=== PATIENT | male | born 1950 | race Caucasian/White ===

== ENCOUNTER 2022-04-04 16:21 | Emergency (ER) | payer MEDICARE, MEDICAID, SELFPAY ==
[2022-04-04 16:34] VITALS: BP 134/76; BP 135/67; PULSE 70; PULSE 74; RESP 14; TEMP 36.6; O2SAT 100; O2SAT 98; BMI 23.8
--- NOTE | 2022-04-04 16:39 | ED.GIBLEED ---
HPI - GI Bleed General Chief complaint: GI Bleed Stated complaint: RECTAL BLEED D/T HEMORRHOID FROM SNF PER EMS Time Seen by Provider: 04/04/22 16:31 Source: patient, EMS and RN notes reviewed Mode of arrival: EMS Limitations: physical limitation History of Present Illness HPI Narrative: 72-year-old male a resident at [facility] came in for evaluation of rectal bleeding. 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 Patient currently declines CP, SOB, ABD pain, nausea, vomiting, diarrhea. Reviewing patient records from the correction not taking blood thinner. Related Data Allergies Allergy/AdvReac Type Severity Reaction Status Date / Time No Known Allergies Allergy Verified 04/04/22 16:32 Review of Systems Review of Systems: All other systems are reviewed and are negative Constitutional: Reports as per HPI and Reports no additional constitutional complaints Eyes: Reports as per HPI and Reports no additional eye complaints Reports system reviewed and no additional complaints, except as documented Cardiovascular: Reports as per HPI and Reports no additional cardiovascular complaints Respiratory: Reports as per HPI and Reports no additional respiratory complaints Gastrointestinal: Reports as per HPI and Reports no additional gastrointestinal complaints Genitourinary: Reports no additional female genitourinary complaints Musculoskeletal: Reports no additional musculoskeletal complaints Skin/Breast: Reports system reviewed and no additional complaints, except as docu Psychiatric: Reports no additional psychiatric complaints Endocrine: Reports no additional endocrine complaints Hematologic/Lymphatic: Reports no additional hematologic/lymphatic complaints Allergic/Immunologic: Reports no additional allergic/immunologic complaints Reports system reviewed and no additional complaints, except as documented and Reports Abnormal speech present [facility] Past Medical History Medical History (Updated 04/04/22 @ 18:51 by Chilo Pringle MD) BPH (benign prostatic hyperplasia) Hypertension Hypokalemia Mood disorder Vascular dementia Social History Social History Advance Directives: Yes Advance Directives Information Provided: No Advance Directives on File: No Physical Exam Vital Signs: Vital Signs: Last Vital Signs Temp 98 F 04/04/22 16:34 Pulse 70 04/04/22 16:34 Resp 14 04/04/22 16:34 BP 135/67 04/04/22 16:34 Pulse Ox 100 04/04/22 16:34 O2 Del Method 04/04/22 16:34 BMI result Body Mass Index 23.8 Vital signs have been reviewed as appeared to be correct. Blood pressure normal. Heart rate normal. Respiration rate normal. Temperature normal. Oxygen saturation normal. Appearance: Alert. Oriented X1 to place. No acute distress. Head: Normal external exam. Normocephalic. Atraumatic. No [place] signs noted. No raccoon eyes noted Eyes: PERRLA. EOMI. Conjunctiva and sclera normal. Eyelids normal. ENT: TM's Normal. Pharynx normal. Uvula midline. Moist mucous membranes. No trismus noted. No drooling noted. No muffled voice noted. Neck: Normal inspection. Neck supple. FROM. No adenopathy. Thyroid Normal. No meningeal signs. No neck mass noted. CVS: Normal heart rate and rhythm. Heart sound normal. No murmurs noted. Pulses normal throughout. Respiratory: No respiratory distress. Painless inspiration. Breath sounds normal. No wheezes/rales/rhonchi noted. Chest nontender. No accessory muscle usage noted or decreased air movement noted. Abdomen: Soft and nontender. Bowel sounds normal in all 4 quadrants. No distention noted. No organomegaly noted. No visible injury noted. Rectal exam: Small external hemorrhoid nontender at 3 and 09:00 o'clock, stool is brown with no active bleeding. Back: No CVA tenderness. Full range of motion noted. Skin: Skin warm and dry. Normal skin color. Normal skin turgor. No rashes/lesions/lacerations noted. Extremities: No lower extremity edema. Extremities exhibit normal range of motion. Extremities nontender. Neuro: Oriented [address] Course Course Narrative: 72-year-old male came in from [facility] for concern of hemorrhoid bleeding. Patient has small external hemorrhoid with no active bleeding or thrombosis no indication for emergency hemorrhoidectomy, the case discussed with Dr. Marinelli who examined the patient at the bedside thought there is no urgent surgical intervention is needed at this point patient can go back to the correction and follow-up with his office as an outpatient. Patient hemodynamically stable with anemia appears to be chronic no old records to compare, patient is asymptomatic, stool shows no blood. [facility] - GI Bleed Lab Data Attestation: I reviewed the patient's lab results. Result diagrams: 04/04/22 16:46 04/04/22 16:46 Labs: Lab Results 04/04/22 04/04/22 04/04/22 Range/Units 16:46 16:46 16:46 WBC 5.4 (4.8-10.8) X10*3/uL RBC 4.10 L (4.60-5.80) X10*6/uL Hgb 10.6 L (14.0-18.0) g/dl Hct 34.9 L (42.0-52.0) % MCV 85.1 (80.0-98.0) fL MCH 25.9 L (27.0-33.0) pg MCHC 30.4 L (31.0-36.0) g/dl RDW 15.9 (11.0-16.0) % Plt Count 241 (160-400) X10*3/uL MPV 9.2 L (9.4-12.4) fL Immature Gran % (Auto) 0.4 (0.0-0.4) % Neut % (Auto) 59.1 (45-73) % Lymph % (Auto) 27.6 (20-40) % Page % (Auto) 10.7 (2-11) % Eos % (Auto) 1.8 (0-4) % Baso % (Auto) 0.4 (0-2) % Lymph # (Auto) 1.5 (1.2-4.9) X10*3/uL [place] # (Auto) 0.6 (0.1-1.2) X10*3/uL Eos # (Auto) 0.1 (0.0-0.4) X10*3/uL Baso # (Auto) 0.0 (0.0-0.2) X10*3/uL Abs Immat Gran (auto) 0.02 (0.00-0.03) X10*3/uL Absolute Neuts (auto) 3.2 (2.0-8.3) x10*3/uL Absolute Nucleated RBC 0.000 (0.0-0.012) X10*3/uL Nucleated RBC % (auto) 0.0 (0.0-0.2) /100WBC PT 16.5 H (10.0-13.1) SEC INR 1.4 H (0.9-1.1) APTT 43.2 H (24.1-38.0) SEC Sodium 137 (135-145) mmol/L Potassium 3.6 (3.3-5.1) mmol/L Chloride 100 (96-108) mmol/L Carbon Dioxide 32 H (22-29) mmol/L Anion Gap 9 L (12-20) BUN 20 H (9-16) mg/dL Creatinine 0.73 (0.5-1.4) mg/dL Estim Creat Clear Calc 86.7 Estimated GFR > 60 Random Glucose 93 (60-115) mg/dL Calcium 8.8 (8.4-10.2) mg/dL Total Bilirubin 0.3 (0.0-1.0) mg/dL Direct Bilirubin < 0.2 (0.0-0.5) mg/dL AST 9 (5-37) U/L ALT < 6 (0-40) U/L Alkaline Phosphatase 81 (39-117) U/L Total Protein 6.3 L (6.5-8.0) g/dL Albumin 3.8 (3.5-5.0) g/dL Lipase 22 (8-78) U/L Stool Occult Blood (NEGATIVE) 04/04/22 Range/Units 16:46 WBC (4.8-10.8) X10*3/uL RBC (4.60-5.80) X10*6/uL Hgb (14.0-18.0) g/dl Hct (42.0-52.0) % MCV (80.0-98.0) fL MCH (27.0-33.0) pg MCHC (31.0-36.0) g/dl RDW (11.0-16.0) % Plt Count (160-400) X10*3/uL MPV (9.4-12.4) fL Immature Gran % (Auto) (0.0-0.4) % Neut % (Auto) (45-73) % Lymph % (Auto) (20-40) % Page % (Auto) (2-11) % Eos % (Auto) (0-4) % Baso % (Auto) (0-2) % Lymph # (Auto) (1.2-4.9) X10*3/uL [place] # (Auto) (0.1-1.2) X10*3/uL Eos # (Auto) (0.0-0.4) X10*3/uL Baso # (Auto) (0.0-0.2) X10*3/uL Abs Immat Gran (auto) (0.00-0.03) X10*3/uL Absolute Neuts (auto) (2.0-8.3) x10*3/uL Absolute Nucleated RBC (0.0-0.012) X10*3/uL Nucleated RBC % (auto) (0.0-0.2) /100WBC PT (10.0-13.1) SEC INR (0.9-1.1) APTT (24.1-38.0) SEC Sodium (135-145) mmol/L Potassium (3.3-5.1) mmol/L Chloride (96-108) mmol/L Carbon Dioxide (22-29) mmol/L Anion Gap (12-20) BUN (9-16) mg/dL Creatinine (0.5-1.4) mg/dL Estim Creat Clear Calc Estimated GFR Random Glucose (60-115) mg/dL Calcium (8.4-10.2) mg/dL Total Bilirubin (0.0-1.0) mg/dL Direct Bilirubin (0.0-0.5) mg/dL AST (5-37) U/L ALT (0-40) U/L Alkaline Phosphatase (39-117) U/L Total Protein (6.5-8.0) g/dL Albumin (3.5-5.0) g/dL Lipase (8-78) U/L Stool Occult Blood NEGATIVE (NEGATIVE) Discharge Plan Discharge Clinical Impression: Hemorrhoids Patient Disposition: Xfer [facility] Instructions: Hemorrhoids (ED) Additional Instructions: Call Dr. Marinelli office and make an outpatient appointment. Referrals: Martin Telles DO [Primary Care Provider] - Raji Marinelli MD [Physician] -
[2022-04-04 16:54] LABS: MANUAL DIFF FLAG NO
[2022-04-04 16:55] LABS: Basophils Percent Auto 0.4 % (0-2); Eosinophils Absolute Auto 0.1 X10*3/uL (0.0-0.4); Eosinophils Percent Auto 1.8 % (0-4); Hematocrit 34.9 % (42.0-52.0); Hemoglobin 10.6 g/dl (14.0-18.0); Imm Gran Abs Auto 0.02 X10*3/uL (0.00-0.03); Imm Gran Pct Auto 0.4 % (0.0-0.4); Lymphocytes Absolute Auto 1.5 X10*3/uL (1.2-4.9); Lymphocytes Percent Auto 27.6 % (20-40); Mean Corpuscular HGB Conc 30.4 g/dl (31.0-36.0); Mean Corpuscular Hemoglobin 25.9 pg (27.0-33.0); Mean Corpuscular Volume 85.1 fL (80.0-98.0); Mean Platelet Volume 9.2 fL (9.4-12.4); Monocytes Absolute Auto 0.6 X10*3/uL (0.1-1.2); Monocytes Percent Auto 10.7 % (2-11); Neutrophils Absolute Auto 3.2 x10*3/uL (2.0-8.3); Neutrophils Percent Auto 59.1 % (45-73); OBS Int Ctl Valid YES; OBS1 NEGATIVE (NEGATIVE); Platelet Count 241 X10*3/uL (160-400); Red Cell Distribution Width 15.9 % (11.0-16.0); White Blood Count 5.4 X10*3/uL (4.8-10.8)
[2022-04-04 17:02] LABS: INTERNATIONAL NORM RATIO 1.4 (0.9-1.1); Prothrombin Time 16.5 SEC (10.0-13.1)
[2022-04-04 17:04] LABS: Partial Thromboplastin Time 43.2 SEC (24.1-38.0)
[2022-04-04 17:17] LABS: Alanine Aminotransferase < 6 U/L (0-40); Albumin Level 3.8 g/dL (3.5-5.0); Alkaline Phosphatase 81 U/L (39-117); Anion Gap 9 (12-20); Aspartate Amino Transferase 9 U/L (5-37); Bilirubin Direct < 0.2 mg/dL (0.0-0.5); Bilirubin Total 0.3 mg/dL (0.0-1.0); Blood Urea Nitrogen 20 mg/dL (9-16); Calcium 8.8 mg/dL (8.4-10.2); Carbon Dioxide 32 mmol/L (22-29); Chloride 100 mmol/L (96-108); Creatinine Clr Calc Pharmacy 86.7; Estimated Glomerular Filt Rate > 60; Glucose Random 93 mg/dL (60-115); Lipase 22 U/L (8-78); Potassium 3.6 mmol/L (3.3-5.1); Sodium 137 mmol/L (135-145); Total Protein 6.3 g/dL (6.5-8.0)
--- NOTE | 2022-04-04 19:40 | PC.NURSE ---
This US called action for BLS transport to [facility] @19:38. Action gave an eta of 1 hr
[2022-04-04 20:50] VITALS: PULSE 82; RESP 15; O2SAT 95
--- NOTE | 2022-04-04 21:35 | PC.NURSE ---
This US called action looking for update on the transport eta @21:10 and action gave eta of 10-15
--- NOTE | 2022-04-04 21:51 | PC.NURSE ---
This US called action @21:51 about the bls unit and action stated less than 5 min
--- NOTE | 2022-04-04 22:20 | PC.NURSE ---
[facility] notified pt will be returning home
== END 2022-04-04 22:20 | disposition skilled nursing facility (03) ==
PROVIDERS: Emergency Provider Emergency Medicine; PCP Hospitalist
DX: K64.9 Unspecified hemorrhoids (principal); K92.2 Gastrointestinal hemorrhage, unspecified; Z79.899 Other long term (current) drug therapy
CPT/HCPCS: 36415; 80048; 80076; 82272; 83690; 85025; 85610; 85730; 99283; 99284

== ENCOUNTER → 2022-07-11 13:29 | Outpatient (BNVA) | payer MEDICARE, SELFPAY | PROVIDERS: PCP Hospitalist; Referring Provider Hospitalist; Visit Provider Surgery | DX: K64.4 Residual hemorrhoidal skin tags (principal) | CPT/HCPCS: 99202 ==

== ENCOUNTER 2023-02-27 08:06 | Inpatient (IN) | payer MEDICARE, MEDICAID, SELFPAY ==
[2023-02-27] VITALS (10 sets, daily range): BP systolic 121–152; BP diastolic 54–90; PULSE 93–123; RESP 16–24; TEMP 36.1–38.3; O2SAT 98–100; BMI 20.6
--- NOTE | ~2023-02-27 | CT_ITS ---
EXAMINATION: CT CHEST WITHOUT CONTRAST CLINICAL INFORMATION: 73-year-old male with cough and shortness of breath COMPARISON: None available. TECHNIQUE: Multidetector volumetric CT imaging of the chest was done. Axial MIP volume rendering provided. Sagittal and coronal reformatted images were obtained. This CT examination was performed using dose optimization techniques as appropriate, variously including the following: *Automated exposure control *Adjustment of mA and/or kV according to patient size (this includes techniques or standardized protocols for targeted exams where dose is matched to indication/reason for exam; i.e. extremities or head) *Use of iterative reconstruction technique Examination limited due to respiratory motion DLP: 364 mGy-cm FINDINGS: RETAIL GREETING CARD MERCHANDISER: Unremarkable LUNGS: The lungs are clear with no evidence of inflammation or nodules. MEDIASTINUM: The mediastinum is normal. CORONARY ARTERY CALCIFICATION: None visualized on this study. PLEURA: There is no pleural effusion. No pleural mass or thickening. AXILLA: No lymphadenopathy. UPPER ABDOMEN: There is low-attenuation of ileum liver due to hepatic steatosis. OSSEOUS STRUCTURES: Unremarkable. CT/CT chest wo IV con IMPRESSION: 1. No lung nodules. 2. Hepatic steatosis. Fleischner guidelines were followed.
--- NOTE | ~2023-02-27 | CT_ITS ---
CT HEAD WITHOUT CONTRAST CLINICAL INFORMATION: Lethargy. COMPARISON: None available. TECHNIQUE: Contiguous axial imaging was performed from the skull base to vertex without intravenous administration of contrast. This CT examination was performed using dose optimization techniques as appropriate, variously including the following: *Automated exposure control *Adjustment of mA and/or kV according to patient size (this includes techniques or standardized protocols for targeted exams where dose is matched to indication/reason for exam; i.e. extremities or head) *Use of iterative reconstruction technique FINDINGS: Severe lateral and third ventriculomegaly is disproportionate to sulcal prominence and associated with a narrowed callosal angle of 30 degrees, findings highly suspicious for the presence of normal pressure hydrocephalus. There is a chronic right-sided striatocapsular infarct and there is a chronic-appearing infarct more superiorly within the right frontoparietal lobe. There is no intracranial hemorrhage, extra-axial surface collection, midline shift, or other herniation pattern. [place] to white matter differentiation is diffusely maintained without evidence of an evolved acute territorial infarct. The basilar cisterns are preserved. No significant soft tissue abnormality. No acute osseous abnormality. The paranasal sinuses and the mastoid air cells are well aerated. CT/CT head/brain wo IV con IMPRESSION: Severe lateral and third ventriculomegaly is disproportionate to sulcal prominence and associated with a narrowed callosal angle of 30 degrees, findings highly suspicious for the presence of normal pressure hydrocephalus. There is a chronic right-sided striatocapsular infarct and there is a chronic-appearing infarct more superiorly within the right frontoparietal lobe.
--- NOTE | 2023-02-27 08:09 | ECG_ITS ---
Test Reason : sob Blood Pressure : / mmHG Vent. Rate : 109 BPM Atrial Rate : 109 BPM P-R Int : 188 ms QRS Dur : 086 ms QT Int : 320 ms P-R-T Axes : 035 034 056 degrees QTc Int : 430 ms Sinus tachycardia Otherwise normal ECG No previous ECGs available Referred By: Jennifer Juárez Electronically Signed By:JUSTIN ULLOA
--- NOTE | 2023-02-27 08:36 | ED.SOB ---
HPI - SOB/Dyspnea General Chief Complaint: General Medical Stated Complaint: SOB 80'S/RA,COUGH,LETHARGIC FROM SNF Time Seen by Provider: 02/27/23 08:09 Source: EMS Mode of arrival: EMS History of Present Illness HPI Narrative: 73-year-old male arrives from [facility] via EMS with shortness of breath and noted to be in the 80s for oxygenation on the EMS arrival and staff reports cough in lethargy only since this morning. Patient does have an underlying history of hemorrhagic stroke with left-sided deficits. Related Data Home Medications Medication Instructions Recorded Confirmed acetaminophen 325 mg tablet 325 mg PO QID PRN 07/11/22 07/11/22 carbidopa ER 50 mg-levodopa 200 mg 1 tab PO QID 07/11/22 07/11/22 tablet,extended release finasteride 5 mg tablet 5 mg PO DAILY 07/11/22 07/11/22 hydrochlorothiazide 25 mg tablet 25 mg PO DAILY 07/11/22 07/11/22 lactulose 10 gram/15 mL oral PO 07/11/22 07/11/22 solution oxcarbazepine 300 mg tablet 300 mg PO BID 07/11/22 07/11/22 potassium chloride 10 mEq 10 meq PO BID 07/11/22 07/11/22 tablet,extended release rivaroxaban 15 mg tablet (Xarelto) 15 mg PO DAILY 07/11/22 07/11/22 ropinirole 0.25 mg tablet 0.25 mg PO BEDTIME 07/11/22 07/11/22 tamsulosin 0.4 mg capsule 0.4 mg PO DAILY 07/11/22 07/11/22 tramadol 50 mg tablet 50 mg PO BID PRN 07/11/22 07/11/22 Allergies Allergy/AdvReac Type Severity Reaction Status Date / Time No Known Allergies Allergy Verified 07/11/22 13:43 Review of Systems Review of Systems: Yes Unobtainable due to mental condition PMFSH Past Medical History Source: nursing notes reviewed Medical History BPH (benign prostatic hyperplasia) External hemorrhoids with complication Hypertension Hypokalemia Mood disorder Vascular dementia Social History Social History Alcohol intake: former Smoked in Last 30 Days: No Use of substances other than those prescribed or required for medical reasons: No Advance Directives: No Advance Directives Information Provided: No Physical Exam Vital Signs: Vital Signs: Last Vital Signs Temp 101 F H 02/27/23 13:54 Pulse 123 H 02/27/23 13:54 Resp 24 H 02/27/23 13:54 BP 142/84 H 02/27/23 13:54 Pulse Ox 100 02/27/23 13:54 O2 Del Method Nasal Cannula 02/27/23 13:54 O2 Flow Rate 2 02/27/23 13:54 BMI result Body Mass Index 20.6 VITAL SIGNS: Reviewed. GENERAL: Well developed, well nourished, in no acute distress. HEAD: Normocephalic/atraumatic EYES: PERRLA, EOMI EARS: Ext canals without abnormality NOSE: Nares patent bilateral OROPHARYNX: no oral lesions noted, posterior pharynx clear NECK: Supple, no adenopathy LUNGS: Decreased breath sounds left greater than right, on non-rebreather, Normal breath sounds. No adventitious sounds or accessory muscle use. CARDIOVASCULAR: Regular rate and rhythm without noted murmurs, no JVD or lower extremity edema. ABDOMEN: Soft, non-tender, non-distended with bowel sounds. MUSCULOSKELETAL: No tenderness, deformities, or effusions noted on gross inspection. EXTREMITIES: No cyanosis, clubbing or edema. SKIN: Inspection of the skin reveals no rashes, ulcerations, jaundice, pallor, or petechiae. NEUROLOGIC: Lethargic and oriented x 2. Strength and sensation to light touch were grossly intact x 2, left-sided hemiparesis/hemiplegia at baseline. Medications Administered Discontinued Medications Generic Name Dose Route Start Last Admin Trade Name Freq PRN Reason Stop Dose Admin Sodium Chloride 1,000 mls @ 999 mls/hr 02/27/23 13:00 02/27/23 13:02 Ns IV 02/27/23 14:00 999 mls/hr .Q1H1M [facility] Administration Medical Decision Making Medical Decision Making MDM Narrative: 73-year-old male who arrives with shortness of breath. On review of all investigations there is no leukocytosis, mild left shift, patient is afebrile and no significant findings on CT of the chest at this time. CT of the head is also benign in nature. 1251: 2 weeks ago, normal conversation, advises full code. Patient does continue to answer appropriately, unsure if this is his normal baseline given the sitting position. On review of investigations no obvious leukocytosis, patient is afebrile. Patient noted be persistently tachycardic and given IV fluids. 1405: I suspect possible aspiration pneumonia and at this time patient will receive Tylenol GA, antibiotics. Patient to be admitted. Lactic acid is within the 6 hour time frame. 1411: I discussed case with inpatient hospitalist who accepts admission. Differential Diagnosis Please see the discussion above Consult Healthcare Provider Management of the patient was discussed with: Hospitalist Please see the discussion above Lab Data Please see the discussion above 02/27/23 09:29 02/27/23 09:29 Labs: Lab Results 02/27/23 02/27/23 02/27/23 Range/Units 09:29 09:29 09:29 WBC 8.0 (4.8-10.8) X10*3/uL RBC 4.86 (4.60-5.80) X10*6/uL Hgb 13.2 L D (14.0-18.0) g/dl Hct 42.7 D (42.0-52.0) % MCV 87.9 (80.0-98.0) fL MCH 27.2 (27.0-33.0) pg MCHC 30.9 L (31.0-36.0) g/dl RDW 15.2 (11.0-16.0) % Plt Count 256 (160-400) X10*3/uL MPV 9.4 (9.4-12.4) fL Immature Gran % (Auto) 0.3 (0.0-0.4) % Neut % (Auto) 86.5 H (45-73) % Lymph % (Auto) 7.5 L (20-40) % [place] % (Auto) 5.5 (2-11) % Eos % (Auto) 0.1 (0-4) % Baso % (Auto) 0.1 (0-2) % Lymph # (Auto) 0.6 L (1.2-4.9) X10*3/uL [place] # (Auto) 0.4 (0.1-1.2) X10*3/uL Eos # (Auto) 0.0 (0.0-0.4) X10*3/uL Baso # (Auto) 0.0 (0.0-0.2) X10*3/uL Abs Immat Gran (auto) 0.02 (0.00-0.03) X10*3/uL Absolute Neuts (auto) 6.9 (2.0-8.3) x10*3/uL Absolute Nucleated RBC 0.000 (0.0-0.012) X10*3/uL Nucleated RBC % (auto) 0.0 (0.0-0.2) /100WBC PT 12.9 (10.0-13.1) SEC INR 1.1 (0.9-1.1) Sodium 144 (135-145) mmol/L Potassium 3.7 (3.3-5.1) mmol/L Chloride 107 (96-108) mmol/L Carbon Dioxide 29 (22-29) mmol/L Anion Gap 12 (12-20) BUN 14 (9-16) mg/dL Creatinine 0.78 (0.5-1.4) mg/dL Estim Creat Clear Calc 78.8 Estimated GFR > 60 Random Glucose 129 H (60-115) mg/dL Lactic Acid (0.5-2.0) mmol/L Calcium 9.9 D (8.4-10.2) mg/dL Total Bilirubin 0.3 (0.0-1.0) mg/dL AST 10 (5-37) U/L ALT 6 (0-40) U/L Alkaline Phosphatase 90 (39-117) U/L Total Protein 7.4 (6.5-8.0) g/dL Albumin 4.0 (3.5-5.0) g/dL Urine Color Urine Appearance Urine pH (5.0-9.0) Ur Specific [place] (1.005-1.025) Urine Protein (Neg-Trace) mg/dL Urine Glucose (UA) (Negative) mg/dL Urine Ketones (Negative) mg/dL Urine Blood (Negative) Urine Nitrite (Negative) Ur Leukocyte Esterase (Negative) 02/27/23 02/27/23 Range/Units 09:29 11:16 WBC (4.8-10.8) X10*3/uL RBC (4.60-5.80) X10*6/uL Hgb (14.0-18.0) g/dl Hct (42.0-52.0) % MCV (80.0-98.0) fL MCH (27.0-33.0) pg MCHC (31.0-36.0) g/dl RDW (11.0-16.0) % Plt Count (160-400) X10*3/uL MPV (9.4-12.4) fL Immature Gran % (Auto) (0.0-0.4) % Neut % (Auto) (45-73) % Lymph % (Auto) (20-40) % [place] % (Auto) (2-11) % Eos % (Auto) (0-4) % Baso % (Auto) (0-2) % Lymph # (Auto) (1.2-4.9) X10*3/uL [place] # (Auto) (0.1-1.2) X10*3/uL Eos # (Auto) (0.0-0.4) X10*3/uL Baso # (Auto) (0.0-0.2) X10*3/uL Abs Immat Gran (auto) (0.00-0.03) X10*3/uL Absolute Neuts (auto) (2.0-8.3) x10*3/uL Absolute Nucleated RBC (0.0-0.012) X10*3/uL Nucleated RBC % (auto) (0.0-0.2) /100WBC PT (10.0-13.1) SEC INR (0.9-1.1) Sodium (135-145) mmol/L Potassium (3.3-5.1) mmol/L Chloride (96-108) mmol/L Carbon Dioxide (22-29) mmol/L Anion Gap (12-20) BUN (9-16) mg/dL Creatinine (0.5-1.4) mg/dL Estim Creat Clear Calc Estimated GFR Random Glucose (60-115) mg/dL Lactic Acid 1.9 (0.5-2.0) mmol/L Calcium (8.4-10.2) mg/dL Total Bilirubin (0.0-1.0) mg/dL AST (5-37) U/L ALT (0-40) U/L Alkaline Phosphatase (39-117) U/L Total Protein (6.5-8.0) g/dL Albumin (3.5-5.0) g/dL Urine Color Yellow Urine Appearance Clear Urine pH 7.0 (5.0-9.0) Ur Specific [place] 1.010 (1.005-1.025) Urine Protein Negative (Neg-Trace) mg/dL Urine Glucose (UA) Negative (Negative) mg/dL Urine Ketones Trace (Negative) mg/dL Urine Blood Negative (Negative) Urine Nitrite Negative (Negative) Ur Leukocyte Esterase Negative (Negative) Independent Interpretation I performed an independent interpretation of an: EKG Interpretation: Sinus tachycardia, HR-109, no STEMI, GA/QRS/QTC is within normal limits. Radiology Impression Radiologist Impression: My interpretation is in agreement with radiology's impression. Discharge Plan Discharge Clinical Impression: Sepsis, Pneumonia Patient Disposition: Admitted As Inpatient Prescriptions: No Action carbidopa-levodopa 50-200 mg tablet extended release 1 tab PO QID acetaminophen 325 mg tablet 325 mg PO QID PRN Xarelto 15 mg tablet 15 mg PO DAILY potassium chloride 10 mEq tablet extended release 10 meq PO BID lactulose 10 gram/15 mL solution PO finasteride 5 mg tablet 5 mg PO DAILY hydrochlorothiazide 25 mg tablet 25 mg PO DAILY tamsulosin 0.4 mg capsule 0.4 mg PO DAILY ropinirole 0.25 mg tablet 0.25 mg PO BEDTIME tramadol 50 mg tablet 50 mg PO BID PRN oxcarbazepine 300 mg tablet 300 mg PO BID
--- NOTE | 2023-02-27 08:53 | PC.NURSE ---
Alert but only responsive to painful stimuli. arrived from NH with AMS, and congested cough. Placed on 2 liters 02 sating 100%. Sinus tacy on monitor. Patient with congested cough, mouth suctioned for small amount of clear secretions.
--- NOTE | 2023-02-27 09:17 | PC.NURSE ---
20g IV access established in left wrist by Ze Boudreaux RN. Multiple unsuccessful attempts by EMS (2), Dorinda Katz RN (2), and Laura Ramirez RN (2). Labs drawn and sent for analysis. Awaiting results. Oral suctioning by respiratory therapist at bedside. Oxygen titrated down to 2 LPM via nasal cannula. Oxygen saturation 100% on 2LPM.
[2023-02-27 09:34] LABS: MANUAL DIFF FLAG NO
[2023-02-27 09:37] LABS: Basophils Percent Auto 0.1 % (0-2); Eosinophils Percent Auto 0.1 % (0-4); Hematocrit 42.7 % (42.0-52.0); Hemoglobin 13.2 g/dl (14.0-18.0); Imm Gran Abs Auto 0.02 X10*3/uL (0.00-0.03); Imm Gran Pct Auto 0.3 % (0.0-0.4); Lymphocytes Absolute Auto 0.6 X10*3/uL (1.2-4.9); Lymphocytes Percent Auto 7.5 % (20-40); Mean Corpuscular HGB Conc 30.9 g/dl (31.0-36.0); Mean Corpuscular Hemoglobin 27.2 pg (27.0-33.0); Mean Corpuscular Volume 87.9 fL (80.0-98.0); Mean Platelet Volume 9.4 fL (9.4-12.4); Monocytes Absolute Auto 0.4 X10*3/uL (0.1-1.2); Monocytes Percent Auto 5.5 % (2-11); Neutrophils Absolute Auto 6.9 x10*3/uL (2.0-8.3); Neutrophils Percent Auto 86.5 % (45-73); Platelet Count 256 X10*3/uL (160-400); Red Blood Count 4.86 X10*6/uL (4.60-5.80); Red Cell Distribution Width 15.2 % (11.0-16.0)
[2023-02-27 09:44] LABS: INTERNATIONAL NORM RATIO 1.1 (0.9-1.1); Prothrombin Time 12.9 SEC (10.0-13.1)
[2023-02-27 09:56] LABS: Lactic Acid 1.9 mmol/L (0.5-2.0)
[2023-02-27 10:00] LABS: Alanine Aminotransferase 6 U/L (0-40); Alkaline Phosphatase 90 U/L (39-117); Anion Gap 12 (12-20); Aspartate Amino Transferase 10 U/L (5-37); Bilirubin Total 0.3 mg/dL (0.0-1.0); Blood Urea Nitrogen 14 mg/dL (9-16); Calcium 9.9 mg/dL (8.4-10.2); Carbon Dioxide 29 mmol/L (22-29); Chloride 107 mmol/L (96-108); Creatinine Clr Calc Pharmacy 78.8; Estimated Glomerular Filt Rate > 60; Glucose Random 129 mg/dL (60-115); Potassium 3.7 mmol/L (3.3-5.1); Sodium 144 mmol/L (135-145); Total Protein 7.4 g/dL (6.5-8.0)
--- NOTE | 2023-02-27 10:25 | PC.NURSE ---
Now able to answer yes or no questions. Denies pain or discomfort. remains sinus tachy on monitor. weaned off - sati 98 on RA. resting comfortably with eyes clsoed.
--- NOTE | 2023-02-27 10:26 | PC.NURSE ---
Removed nasal cannula, per MD Juárez. Pt tolerating room air well at this time. Tachycardia 100-110bpm, afebrile, no acute distress noted at this time. Pt has dementia at baseline and doesn't respond to verbal stimuli at baseline. Likely plan for discharge back to SNF per Dr. Juárez, pending maintaining oxygen saturation on room air.
[2023-02-27 11:24] LABS: Appearance Urine Clear; Color Urine Yellow; Glucose Urine UA Negative (Negative); Leukocyte Esterase Urine Negative (Negative); Nitrite Urine Negative (Negative); Urine Blood Negative (Negative); Urine Ketones Trace mg/dL (Negative); Urine Protein Negative (Neg-Trace)
--- NOTE | 2023-02-27 11:34 | PC.NURSE ---
care assumed by this rn. pt is on 2l nc remains tachycardic on the monitor, normotensive,
--- NOTE | 2023-02-27 12:56 | PC.NURSE ---
PT UNABLE TO MANAGE ORAL SECRETIONS. DR GARVEY HAS CALLED HIS BROTHER WHO IS THE HCP , KADEN HE CONFIRMED PT IS A FULL CODE
[2023-02-27] MEDS: 0.9 % Sodium Chloride 1,000 ML 999 ML IV (13:02)
[2023-02-27] MEDS: Piperacillin Sodium/Tazobactam 3.375 GM in 0.9 % Sodium Chloride 50 ML IV (14:19)
[2023-02-27] MEDS: Acetaminophen Supp 650 MG SUPP.RECT PR (14:20)
--- NOTE | 2023-02-27 14:37 | PHA.MEDREC ---
Pharmacy Consult ? Medication Reconciliation Pharmacy has completed the medication reconciliation.
--- NOTE | 2023-02-27 15:25 | PC.NURSE ---
Sinus tachy on monitor, able to answer yes or no questions, denies pain. Continues to drool, HOB elevated , resting comfortably at this time.
--- NOTE | 2023-02-27 15:56 | PM.IMHP ---
History of Present Illness Date of Service: 02/27/23 Attending physician on admission: Marques Gauthier Chief Complaint: hypoxia, ams 73-year-old male with history of vascular dementia, history of CVA with left-sided hemiparesis, Parkinson's disease, unspecified atrial fibrillation anticoagulated with Xarelto,hypertension, BPH, and recurrent pneumonia presented to the ED from [facility] where he resides for evaluation of hypoxia and altered mental status. Per Shelli R.N. at [facility], patient was found with dusky appearance hypoxic to 85%. She states at that time he was afebrile but she does suction him with yellow sputum. She states he was diminished at the bases bilaterally with some wheezing in the upper lobes. States at baseline, patient is alert and oriented and very conversive. On arrival, patient is unable to give history. Initially patient was afebrile but did develop fever of 101 and is tachycardic to 123, tachypneic to 24. He arrived on 2 L supplemental O2 due to his hypoxia. There is no leukocytosis. Renal function normal, electrolyte levels normal. Urinalysis unremarkable. Head CT shows severe lateral and 3rd ventriculomegaly with findings suspicious for NPH. There is also chronic right-sided straight a capsular infarct and chronic appearing infarct more superiorly within the right frontoparietal lobe. Chest CT is negative for any acute pulmonary abnormality. In the ED, given 650 mg acetaminophen per rectum, 1 L IV NS, and 3.375 g IV Zosyn. Review of Systems Review of Systems: Yes Unobtainable due to mental condition and Unobtainable due to mental status [facility] Medical History Atrial fibrillation BPH (benign prostatic hyperplasia) External hemorrhoids with complication Hypertension Hypokalemia Mood disorder Parkinson disease Vascular dementia Social History Alcohol intake: former Smoked in Last 30 Days: No Use of substances other than those prescribed or required for medical reasons: No Advance Directives: No Advance Directives Information Provided: No Meds Allergies Allergy/AdvReac Type Severity Reaction Status Date / Time No Known Allergies Allergy Verified 07/11/22 13:43 Active Medications: Current Medications Acetaminophen (Acetaminophen Supp 650 Mg Supp.Rect) 650 mg [place] Q6H PRN PRN Reason: Pain, Mild, fever Docusate Sodium (Docusate Sodium 100 Mg Capsule) 100 mg PO DAILY PRN PRN Reason: Constipation Piperacillin Sod/Tazobactam (Sod 4.5 gm/ Sodium Chloride) 100 mls @ 200 mls/hr IV Q6H [facility] Ondansetron HCl (Ondansetron Hcl 4 Mg/2 Ml Vial) 4 mg IVPUSH Q8H PRN PRN Reason: Nausea and Vomiting Pharmacy Consult (Consult Rx Perform Med Rec) 1 each MISCELLANE ONCE PRN PRN Reason: Consult order Sodium Chloride (0.9 % Sodium Chloride Flush 3 Ml Syringe) 3 ml IVFLUSH QSHIFT [facility] Home Medications Medication Instructions Recorded Confirmed Last Taken Type acetaminophen 325 mg tablet 325 mg PO QID PRN Pain 07/11/22 02/27/23 Unknown History carbidopa ER 50 mg-levodopa 200 mg 1 tab PO QID 07/11/22 02/27/23 Unknown History tablet,extended release finasteride 5 mg tablet 5 mg PO DAILY 07/11/22 02/27/23 Unknown History hydrochlorothiazide 25 mg tablet 25 mg PO DAILY 07/11/22 02/27/23 Unknown History lactulose 10 gram/15 mL oral 30 ml PO DAILY 07/11/22 02/27/23 Unknown History solution oxcarbazepine 300 mg tablet 300 mg PO BID 07/11/22 02/27/23 Unknown History potassium chloride 10 mEq 20 meq PO DAILY 07/11/22 02/27/23 Unknown History tablet,extended release rivaroxaban 15 mg tablet (Xarelto) 15 mg PO DAILY 07/11/22 02/27/23 Unknown History ropinirole 0.25 mg tablet 0.25 mg PO BEDTIME 07/11/22 02/27/23 Unknown History tamsulosin 0.4 mg capsule 0.4 mg PO DAILY 07/11/22 02/27/23 Unknown History tramadol 50 mg tablet 50 mg PO BID PRN Pain 07/11/22 02/27/23 Unknown History calcium carbonate 500 mg calcium 500 mg PO DAILY 02/27/23 02/27/23 Unknown History (1,250 mg) tablet melatonin 5 mg tablet 5 mg PO BEDTIME 02/27/23 02/27/23 Unknown History polyvinyl alcohol 1.4 % eye drops 1 drp ophthalmic (eye) TID PRN 02/27/23 02/27/23 Unknown History (Artificial Tears (polyvinyl ITCHY EYES alcohol)) psyllium husk 3.4 gram/5.4 gram 1 tbsp PO DAILY 02/27/23 02/27/23 Unknown History oral powder (Metamucil) sennosides 8.6 mg tablet (senna) 8.6 mg PO DAILY 02/27/23 02/27/23 Unknown History Physical Exam Vital Signs and Narrative: Vital Signs: Last Vital Signs Temp 100.3 F 02/27/23 15:50 Pulse 109 H 02/27/23 15:50 Resp 20 02/27/23 15:50 BP 152/74 H 02/27/23 15:50 Pulse Ox 100 02/27/23 15:50 O2 Del Method Nasal Cannula 02/27/23 15:22 O2 Flow Rate 2 02/27/23 15:22 BMI result Body Mass Index 20.6 Constitutional - somnolent and arousable to pain only, drooling, No apparent distress Eyes - PERRLA, EOMI Cardiovascular - S1S2, RRR, No edema Respiratory - Normal lung expansion, Normal respiratory effort, No respiratory distress, LLL rhonchi Gastrointestinal - NT / ND; +BS; No rebound or guarding Extremities - no calf tenderness bilaterally, no swelling Skin - Warm/Dry Neurological - somnolent and arousable to pain only, groaning in response or one word answers to some questions Results Labs 02/27/23 09:29 02/27/23 09:29 Labs: Laboratory Results - last 24 hr 02/27/23 02/27/23 02/27/23 09:29 09:29 09:29 MCV 87.9 MCH 27.2 MCHC 30.9 L RDW 15.2 Plt Count 256 MPV 9.4 Immature Gran % (Auto) 0.3 Neut % (Auto) 86.5 H Lymph % (Auto) 7.5 L [place] % (Auto) 5.5 Eos % (Auto) 0.1 Baso % (Auto) 0.1 Lymph # (Auto) 0.6 L [place] # (Auto) 0.4 Eos # (Auto) 0.0 Baso # (Auto) 0.0 Abs Immat Gran (auto) 0.02 Absolute Neuts (auto) 6.9 Absolute Nucleated RBC 0.000 Nucleated RBC % (auto) 0.0 PT 12.9 INR 1.1 Anion Gap 12 Estim Creat Clear Calc 78.8 Estimated GFR > 60 Random Glucose 129 H Lactic Acid Calcium 9.9 D Total Bilirubin 0.3 AST 10 ALT 6 Alkaline Phosphatase 90 Total Protein 7.4 Albumin 4.0 Urine Color Urine Appearance Urine pH Ur Specific [place] Urine Protein Urine Glucose (UA) Urine Ketones Urine Blood Urine Nitrite Ur Leukocyte Esterase 02/27/23 02/27/23 09:29 11:16 MCV MCH MCHC RDW Plt Count MPV Immature Gran % (Auto) Neut % (Auto) Lymph % (Auto) [place] % (Auto) Eos % (Auto) Baso % (Auto) Lymph # (Auto) [place] # (Auto) Eos # (Auto) Baso # (Auto) Abs Immat Gran (auto) Absolute Neuts (auto) Absolute Nucleated RBC Nucleated RBC % (auto) PT INR Anion Gap Estim Creat Clear Calc Estimated GFR Random Glucose Lactic Acid 1.9 Calcium Total Bilirubin AST ALT Alkaline Phosphatase Total Protein Albumin Urine Color Yellow Urine Appearance Clear Urine pH 7.0 Ur Specific [place] 1.010 Urine Protein Negative Urine Glucose (UA) Negative Urine Ketones Trace Urine Blood Negative Urine Nitrite Negative Ur Leukocyte Esterase Negative Imaging Radiologist's Impressions: Impressions Chest CT 02/27/23 08:47 IMPRESSION: 1. No lung nodules. 2. Hepatic steatosis. Fleischner guidelines were followed. Head CT 02/27/23 08:47 IMPRESSION: Severe lateral and third ventriculomegaly is disproportionate to sulcal prominence and associated with a narrowed callosal angle of 30 degrees, findings highly suspicious for the presence of normal pressure hydrocephalus. There is a chronic right-sided striatocapsular infarct and there is a chronic-appearing infarct more superiorly within the right frontoparietal lobe. Assessment and Plan (1) Sepsis: Status: Acute (2) Pneumonia: Status: Acute Plan 73-year-old male with history of vascular dementia, history of CVA with left-sided hemiparesis, Parkinson's disease, unspecified atrial fibrillation anticoagulated with Xarelto,hypertension, BPH, and recurrent pneumonia admitted for acute hypoxemic respiratory failure secondary to suspected pneumonia. # acute hypoxemic respiratory failure -likely 2/2 pneumonia with sepsis -continue supplemental O2 to maintain oximetry >92% - no known chronic lung disease #Acute metabolic encephalopathy -secondary to pneumonia -Head CT negative for acute abnormality. UA unremarkable -abx as below - keep NPO for now #Acute pneumonia with sepsis- suspected given clinical picture -pt with metabolic encephalopathy drooling on exam with yellow sputum on deep suction at [facility]- suspect aspiration -CT chest negative -Febrile to 101, tachycardic to 123, tachypneic to 28. no leukocytosis. Lactic acid normal. No severe sepsis /shock - cover with broad-spectrum antibiotics vanco and Zosyn ( initiated 02/27) - suction per respiratory therapy p.r.n. - respiratory panel pending - keep NPO, [place] evaluation #HTN -bp's reasonably controlled -Hold antihypertensives due to sepsis and NPO status #Unspecified atrial fibrillation - tachycardic related to sepsis, not AFib RVR - hold Xarelto due to NPO status as above. Transition to therapeutic Lovenox - not on rate control medications # Parkinson's disease - hold Sinemet for now # BPH - hold Flomax for now DVT prophylaxis- on therapeutic Lovenox full code patient requires inpatient stay of at least 2 midnights for management of acute hypoxemic respiratory failure and metabolic encephalopathy likely secondary to pneumonia with sepsis requiring IV antibiotics and supplemental O2 with close monitoring of mentation and vitals to prevent further decompensation Time Spent With Patient Time: Total time managing care of this patient today ____ minutes. Quality Stroke Does the patient have a stroke diagnosis?: No VTE Prior VTE?: No VTE Risk Level:: Medical - moderate - high VTE Device Contraindication: Treatment Not Indicated VTE Drug Contraindication: N/A - Med Ordered
[2023-02-27] MEDS: 0.9 % Sodium Chloride Flush 3 ML SYRINGE IVFLUSH ×2 (16:11→20:04)
--- NOTE | 2023-02-27 16:48 | PHA.PROG ---
Admission Date/Time: February 27, 2023 15:48 Indication: RESPIRATORY INFECTION Weight in k.1 kg Adjusted body weight in Kg: [place] body weight in K Obesity Dosing Indication % IBW: Serum Creatinine - Last 168 Hours 02/27/23 09:29 Creatinine 0.78 Estimated CrCl and GFR - Last 168 Hours 02/27/23 09:29 Estim Creat Clear Calc 78.8 Estimated GFR > 60 Vancomycin Loading Dose: 1500 Current Vancomycin Dosing Regimen:750 MG Q 12 HOURS Vancomycin Monitoring using AUC goal of 400 - 600 range with trough as surrogate marker: Date and Time for next Vancomycin Level to be drawn:03/01/23 0400 Pharmacist Comments on Vancomycin Plan:PREDICTED AUC OF 447 Vancomycin dosing will take advantage of [employer] as a clinical decision support tool that uses Bayesian modeling to calculate individual patient's pharmacokinetic parameters and forecast the patient's drug concentration time course with the target goal AUC 24 range of 400 - 600 mg/L/hr.
[2023-02-27] MEDS: vancomycin HCL 1,500 MG in 0.9 % Sodium Chloride 500 ML 333.33 MG IV (17:37)
--- NOTE | 2023-02-27 18:13 | PC.NURSE ---
REPORT GIVEN FOR TRANSFER TO MED SURG
--- NOTE | 2023-02-27 18:47 | MHC.EDTECH ---
PATIENT IS CLEAN AND DRY ,VITALS SIGN TAKEN ,PT SLEEPING ,RESP PANAL COLLECTED AND SENT TO LAB ,PT HAS A BED ON MED SURGE ,WAITING FOR NURSE TO NURSE REPORT .
[2023-02-27] MEDS: Enoxaparin Sodium 60 MG/0.6 ML SYRINGE 65 MG SUBCUT (20:04)
[2023-02-27] MEDS: Piperacillin Sodium/Tazobactam 4.5 GM in 0.9 % Sodium Chloride 100 ML IV (20:04)
[2023-02-28] MEDS: Piperacillin Sodium/Tazobactam 4.5 GM in 0.9 % Sodium Chloride 100 ML IV ×4 (02:12→20:06)
[2023-02-28 03:32] VITALS: BP 135/62; PULSE 96; RESP 17; TEMP 36.4; O2SAT 97
[2023-02-28] MEDS: vancomycin HCL 750 MG in 0.9 % Sodium Chloride 250 ML 265 MG IV ×2 (05:11→18:06)
[2023-02-28 06:18] LABS: MANUAL DIFF FLAG NO
[2023-02-28 06:25] LABS: Basophils Percent Auto 0.3 % (0-2); Hematocrit 40.7 % (42.0-52.0); Hemoglobin 12.2 g/dl (14.0-18.0); Imm Gran Abs Auto 0.09 X10*3/uL (0.00-0.03); Imm Gran Pct Auto 0.6 % (0.0-0.4); Lymphocytes Absolute Auto 0.9 X10*3/uL (1.2-4.9); Lymphocytes Percent Auto 5.7 % (20-40); Mean Platelet Volume 9.8 fL (9.4-12.4); Monocytes Absolute Auto 0.8 X10*3/uL (0.1-1.2); Monocytes Percent Auto 5.2 % (2-11); Neutrophils Absolute Auto 13.2 x10*3/uL (2.0-8.3); Neutrophils Percent Auto 88.2 % (45-73); Platelet Count 228 X10*3/uL (160-400); Red Blood Count 4.52 X10*6/uL (4.60-5.80); Red Cell Distribution Width 15.7 % (11.0-16.0); White Blood Count 14.9 X10*3/uL (4.8-10.8)
[2023-02-28 06:55] LABS: Anion Gap 14 (12-20); Blood Urea Nitrogen 13 mg/dL (9-16); Calcium 9.3 mg/dL (8.4-10.2); Carbon Dioxide 23 mmol/L (22-29); Chloride 114 mmol/L (96-108); Creatinine Clr Calc Pharmacy 79.8; Estimated Glomerular Filt Rate > 60; Glucose Random 97 mg/dL (60-115); Potassium 3.7 mmol/L (3.3-5.1); Sodium 147 mmol/L (135-145)
[2023-02-28 07:40] VITALS: BP 136/76; PULSE 98; RESP 16; TEMP 36.8; O2SAT 96
[2023-02-28] MEDS: Enoxaparin Sodium 80 MG/0.8 ML SYRINGE 65 MG SUBCUT ×2 (08:26→20:06)
[2023-02-28] MEDS: Dextrose 5 % and 0.45 % NaCl 1,000 ML 100 ML IVCONT (08:26)
[2023-02-28] MEDS: 0.9 % Sodium Chloride Flush 3 ML SYRINGE IVFLUSH ×2 (08:26→20:08)
[2023-02-28 10:04] LABS: Adenovirus PCR Not Detected (Not Detect.); Bordetella parapertussis PCR Not Detected (Not Detect.); Bordetella pertussis PCR Not Detected (Not Detect.); Chlamydia pneumoniae PCR Not Detected (Not Detect.); Coronavirus 229E PCR Not Detected (Not Detect.); Coronavirus HKU1 PCR Not Detected (Not Detect.); Coronavirus NL63 PCR Not Detected (Not Detect.); Coronavirus OC43 PCR Not Detected (Not Detect.); Human metapneumovirus PCR Not Detected (Not Detect.); Influenza A PCR Not Detected (Not Detect.); Influenza B PCR Not Detected (Not Detect.); Mycoplasma pneumoniae PCR Not Detected (Not Detect.); Parainfluenza 1 PCR Not Detected (Not Detect.); Parainfluenza 2 PCR Not Detected (Not Detect.); Parainfluenza 3 PCR Not Detected (Not Detect.); Parainfluenza 4 PCR Not Detected (Not Detect.); RSV PCR Not Detected (Not Detect.); Rhino/Enterovirus PCR Not Detected (Not Detect.); SARS-CoV-2 PCR Not Detected (Not Detect.)
--- NOTE | 2023-02-28 10:56 | HO.PM.IMPN ---
Subjective Subjective Date of Service: 02/28/23 Interval History: Seen and examined Interval history: More awake but still largely nonverbal. Was expressive overnight and aggitated. Coughing up yellow sputum. Weaned from O2. Review of Systems Review of Systems: Yes Unobtainable due to mental condition and Unobtainable due to mental status Physical Exam Vital Signs: Vital Signs: Last Vital Signs Temp 98.2 F 02/28/23 07:40 Pulse 98 02/28/23 07:40 Resp 16 02/28/23 07:40 BP 136/76 02/28/23 07:40 Pulse Ox 96 02/28/23 07:40 O2 Del Method Room Air 02/28/23 07:40 O2 Flow Rate 2 02/27/23 18:43 BMI result Body Mass Index 20.6 Constitutional - Awake and Alert, No apparent distress Eyes - PERRLA, EOMI Cardiovascular - S1S2, RRR, No edema Respiratory - Normal lung expansion, Normal respiratory effort, No respiratory distress, CTA bilaterally Gastrointestinal - NT / ND; +BS; No rebound or guarding Extremities - no calf tenderness bilaterally, no swelling Musculoskeletal - Normal inspection, normal ROM Skin - Warm/Dry. No evidence skin infection Neurological - Alert and disoriented Objective Data Active Medications Acetaminophen (Acetaminophen Supp 650 Mg Supp.Rect) 650 mg [place] Q6H PRN PRN Reason: Pain, Mild, fever Artificial Tears (Artificial Tears 15 Ml Drops) 1 drop EYE-BOTH TID PRN PRN Reason: ITCHY EYES Docusate Sodium (Docusate Sodium 100 Mg Capsule) 100 mg PO DAILY PRN PRN Reason: Constipation Enoxaparin Sodium (Enoxaparin Sodium 80 Mg/0.8 Ml Syringe) 65 mg SUBCUT Q12H [facility] Last Admin: 02/28/23 08:26 Dose: 65 mg Documented By: KRISHNA Piperacillin Sod/Tazobactam (Sod 4.5 gm/ Sodium Chloride) 100 mls @ 200 mls/hr IV Q6H [facility] Last Infusion: 02/28/23 09:00 Dose: 0 mls/hr Documented By: KRISHNA Vancomycin HCl 750 mg/ Sodium (Chloride) 265 mls @ 265 mls/hr IV Q12H [facility] Last Infusion: 02/28/23 06:35 Dose: 0 mls/hr Documented By: MARCUS Dextrose/Sodium Chloride (D51/2ns) 1,000 mls @ 100 mls/hr IVCONT .Q10H [facility] Last Admin: 02/28/23 08:26 Dose: 100 mls/hr Documented By: KRISHNA Ondansetron HCl (Ondansetron Hcl 4 Mg/2 Ml Vial) 4 mg IVPUSH Q8H PRN PRN Reason: Nausea and Vomiting Pharmacy Consult (Consult Rx Perform Med Rec) 1 each MISCELLANE ONCE PRN PRN Reason: Consult order Pharmacy Consult (Consult Rx Vancomycin Dosing) 1 each MISCELLANE DAILY PRN PRN Reason: Consult order Sodium Chloride (0.9 % Sodium Chloride Flush 3 Ml Syringe) 3 ml IVFLUSH QSHIFT [facility] Last Admin: 02/28/23 08:26 Dose: 3 ml Documented By: KRISHNA Labs 02/28/23 05:45 02/28/23 05:45 Labs: Laboratory Results - last 24 hr 02/27/23 02/27/23 02/28/23 11:16 18:47 05:45 MCV 90.0 MCH 27.0 MCHC 30.0 L RDW 15.7 Plt Count 228 MPV 9.8 Immature Gran % (Auto) 0.6 H Neut % (Auto) 88.2 H Lymph % (Auto) 5.7 L [place] % (Auto) 5.2 Eos % (Auto) 0.0 Baso % (Auto) 0.3 Lymph # (Auto) 0.9 L [place] # (Auto) 0.8 Eos # (Auto) 0.0 Baso # (Auto) 0.0 Abs Immat Gran (auto) 0.09 H Absolute Neuts (auto) 13.2 H Absolute Nucleated RBC 0.000 Nucleated RBC % (auto) 0.0 Anion Gap Estim Creat Clear Calc Estimated GFR Random Glucose Calcium Urine Color Yellow Urine Appearance Clear Urine pH 7.0 Ur Specific [place] 1.010 Urine Protein Negative Urine Glucose (UA) Negative Urine Ketones Trace Urine Blood Negative Urine Nitrite Negative Ur Leukocyte Esterase Negative Respiratory Panel [place] See Note Adenovirus (Rapid PCR) Not Detected B.pert (TEM-PCR) Not Detected B.parapertussis DNA PCR Not Detected C. pneumoniae DNA (PCR) Not Detected Coronavirus OC43 (PCR) Not Detected Coronavirus HKU1 (PCR) Not Detected Coronavirus 229E (PCR) Not Detected Coronavirus NL63 (PCR) Not Detected Human Metapneumovir PCR Not Detected Influenza A (RT-PCR) Not Detected Influenza B (RT-PCR) Not Detected M. pneumoniae (PCR) Not Detected Parainfluenza 1 (PCR) Not Detected Parainfluenza 2 (PCR) Not Detected Parainfluenza 3 (PCR) Not Detected Parainfluenza 4 (PCR) Not Detected RSV (PCR) Not Detected Entero/Rhino (PCR) Not Detected SARS-CoV-2 RNA (RT-PCR) Not Detected 02/28/23 05:45 MCV MCH MCHC RDW Plt Count MPV Immature Gran % (Auto) Neut % (Auto) Lymph % (Auto) [place] % (Auto) Eos % (Auto) Baso % (Auto) Lymph # (Auto) [place] # (Auto) Eos # (Auto) Baso # (Auto) Abs Immat Gran (auto) Absolute Neuts (auto) Absolute Nucleated RBC Nucleated RBC % (auto) Anion Gap 14 Estim Creat Clear Calc 79.8 Estimated GFR > 60 Random Glucose 97 Calcium 9.3 D Urine Color Urine Appearance Urine pH Ur Specific [place] Urine Protein Urine Glucose (UA) Urine Ketones Urine Blood Urine Nitrite Ur Leukocyte Esterase Respiratory Panel [place] Adenovirus (Rapid PCR) B.pert (TEM-PCR) B.parapertussis DNA PCR C. pneumoniae DNA (PCR) Coronavirus OC43 (PCR) Coronavirus HKU1 (PCR) Coronavirus 229E (PCR) Coronavirus NL63 (PCR) Human Metapneumovir PCR Influenza A (RT-PCR) Influenza B (RT-PCR) M. pneumoniae (PCR) Parainfluenza 1 (PCR) Parainfluenza 2 (PCR) Parainfluenza 3 (PCR) Parainfluenza 4 (PCR) RSV (PCR) Entero/Rhino (PCR) SARS-CoV-2 RNA (RT-PCR) Assessment and Plan (1) Sepsis: Status: Acute (2) Pneumonia: Status: Acute (3) Acute metabolic encephalopathy: Status: Acute Plan 73-year-old male with history of vascular dementia, history of CVA with left-sided hemiparesis, ? Parkinson's disease, unspecified atrial fibrillation anticoagulated with Xarelto,hypertension, BPH, and recurrent pneumonia admitted for acute hypoxemic respiratory failure secondary to suspected pneumonia. # acute hypoxemic respiratory failure- resolved -likely 2/2 pneumonia with sepsis -continue supplemental O2 to maintain oximetry >92% - no known chronic lung disease #Acute metabolic encephalopathy- improved slightly -likely secondary to pneumonia -Head CT negative for acute abnormality. UA unremarkable -abx as below -keep NPO for now #Acute pneumonia with sepsis- suspected given clinical picture -pt with metabolic encephalopathy drooling on exam with yellow sputum on deep suction at [facility]- suspect aspiration -CT chest negative -Febrile to 101, tachycardic to 123, tachypneic to 28.? Lactic acid normal.? No severe sepsis /shock -Now with leukocytosis 14.1 - cover with broad-spectrum antibiotics? vanco and Zosyn (initiated 02/27) - suction per respiratory therapy p.r.n. - respiratory panel negative -Chopped solids, thin liquids per POLE FRAMER -Check procalcitonin #?seizure -as cause for AMS, fever, drooling, hypoxia -Seems less likely, but will evaluate EEG and request neuro eval -Head CT negative for acute findings #Mild hypernatremia -Na 147. Given IV D5 1/2 Ns -Recheck bmp @ 3 -Change to LR given NPO status #HTN -bp's reasonably controlled but soft -Continue holding home meds #Unspecified? atrial fibrillation - tachycardic related to sepsis, not AFib RVR - hold Xarelto due to NPO status as above.? Continue therapeutic Lovenox - not on rate control medications # Parkinson's disease - Resume sinemet # BPH - continue home meds ?DVT prophylaxis- on therapeutic Lovenox ?full code ?patient requires ongoing inpt stay for management of suspected aspiration pneumonia wtih ongoing metabolic encephalopathy requiring IV abx and close monitoring of mentation and assistance with secretion management to prevent reaspiration Time Spent With Patient Time: Total time managing care of this patient today ____ minutes. Quality Stroke Does the patient have a stroke diagnosis?: No VTE Prior VTE?: No VTE Risk Level:: Medical - moderate - high VTE Device Contraindication: Treatment Not Indicated VTE Drug Contraindication: N/A - Med Ordered
--- NOTE | 2023-02-28 11:32 | MHC.CM.PN ---
PATIENT IS IN FROM [facility]. HCP/BROTHER KADEN [phone] IS AWARE OF PATIENT'S MEDICARE RIGHTS IMM LEFT IN ROOM PER HIS REQUEST, HE WILL BE VISITING TOMORROW (03/01/23) NO HCP ON FILE OR IN PATIENT CHART FROM FACILITY, BUT CONTACT LIST DOES IDENTIFY KADEN HCP COPY REQUESTED TO BE BROUGHT IN IMM 02/28 IN CHART
--- NOTE | 2023-02-28 15:50 | W.PM.IDCN ---
History of Present Illness Data of Consult Service Date: 02/28/23 Requesting physician: Janet Mead Primary Care Provider: Martin Telles DO HPI Reason for consult: fever of unknown origin He presents from [facility] with yellow sputum and temperature 101 as well as tachycardia. He is drooling and not able to express complaints. He has RVP negative and chest film unremarkable He is on Zosyn and Vancomycin He has old infarct on CT head. Review of Systems Review of Systems: Yes Unobtainable due to mental condition [facility] Past Medical History Medical History Atrial fibrillation BPH (benign prostatic hyperplasia) External hemorrhoids with complication Hypertension Hypokalemia Mood disorder Parkinson disease Vascular dementia Social History Social History Household Members: None Housing: Group Home Do you presently have visiting nurse or other home services: No Unable to assess alcohol history related to: Unknown Alcohol intake: former Patient Tobacco Use Status: Tobacco use Unknown service: No Meds Allergies Allergy/AdvReac Type Severity Reaction Status Date / Time No Known Allergies Allergy Verified 07/11/22 13:43 Active Medications: Current Medications Acetaminophen (Acetaminophen Supp 650 Mg Supp.Rect) 650 mg SC Q6H PRN PRN Reason: Pain, Mild, fever Artificial Tears (Artificial Tears 15 Ml Drops) 1 drop EYE-BOTH TID PRN PRN Reason: ITCHY EYES Carbidopa/Levodopa (Carbidopa/Levodopa Cr 50/200 Tablet.Er) 1 tab PO QID THA Docusate Sodium (Docusate Sodium 100 Mg Capsule) 100 mg PO DAILY PRN PRN Reason: Constipation Enoxaparin Sodium (Enoxaparin Sodium 80 Mg/0.8 Ml Syringe) 65 mg SUBCUT Q12H [facility] Last Admin: 02/28/23 08:26 Dose: 65 mg Finasteride (Finasteride 5 Mg Tablet) 5 mg PO DAILY THA Piperacillin Sod/Tazobactam (Sod 4.5 gm/ Sodium Chloride) 100 mls @ 200 mls/hr IV Q6H THA Last Infusion: 02/28/23 15:21 Dose: Infused Vancomycin HCl 750 mg/ Sodium (Chloride) 265 mls @ 265 mls/hr IV Q12H THA Last Infusion: 02/28/23 06:35 Dose: Infused Dextrose/Sodium Chloride (D51/2ns) 1,000 mls @ 100 mls/hr IVCONT .Q10H [facility] Stop: 02/28/23 17:29 Last Admin: 02/28/23 08:26 Dose: 100 mls/hr Lactated Ringer's (Lr) 1,000 mls @ 100 mls/hr IVCONT .Q10H [facility] Lactulose (Lactulose 20 Gm/30 Ml Solution) 20 gm PO DAILY [facility] Ondansetron HCl (Ondansetron Hcl 4 Mg/2 Ml Vial) 4 mg IVPUSH Q8H PRN PRN Reason: Nausea and Vomiting Oxcarbazepine (Oxcarbazepine 300 Mg Tablet) 300 mg PO BID [facility] Pharmacy Consult (Consult Rx Perform Med Rec) 1 each MISCELLANE ONCE PRN PRN Reason: Consult order Pharmacy Consult (Consult Rx Vancomycin Dosing) 1 each MISCELLANE DAILY PRN PRN Reason: Consult order Potassium Chloride (Potassium Chloride Er 10 Meq Tablet.Er) 20 meq PO DAILY [facility] Psyllium Hydrophilic Mucilloid (Psyllium Seed 3.4 Gm Powd.Pack) 3.4 gm PO DAILY [facility] Ropinirole HCl (Ropinirole Hcl 0.25 Mg Tablet) 0.25 mg PO BEDTIME [facility] Senna (Sennosides 8.6 Mg Tablet) 8.6 mg PO DAILY [facility] Sodium Chloride (0.9 % Sodium Chloride Flush 3 Ml Syringe) 3 ml IVFLUSH QSHIFT [facility] Last Admin: 02/28/23 15:10 Dose: Not Given Tamsulosin HCl (Tamsulosin Hcl 0.4 Mg Capsule) 0.4 mg PO DAILY [facility] Home Medications Medication Instructions Recorded Confirmed Last Taken Type acetaminophen 325 mg tablet 325 mg PO QID PRN Pain 07/11/22 02/27/23 Unknown History carbidopa ER 50 mg-levodopa 200 mg 1 tab PO QID 07/11/22 02/27/23 Unknown History tablet,extended release finasteride 5 mg tablet 5 mg PO DAILY 07/11/22 02/27/23 Unknown History hydrochlorothiazide 25 mg tablet 25 mg PO DAILY 07/11/22 02/27/23 Unknown History lactulose 10 gram/15 mL oral 30 ml PO DAILY 07/11/22 02/27/23 Unknown History solution oxcarbazepine 300 mg tablet 300 mg PO BID 07/11/22 02/27/23 Unknown History potassium chloride 10 mEq 20 meq PO DAILY 07/11/22 02/27/23 Unknown History tablet,extended release rivaroxaban 15 mg tablet (Xarelto) 15 mg PO DAILY 07/11/22 02/27/23 Unknown History ropinirole 0.25 mg tablet 0.25 mg PO BEDTIME 07/11/22 02/27/23 Unknown History tamsulosin 0.4 mg capsule 0.4 mg PO DAILY 07/11/22 02/27/23 Unknown History tramadol 50 mg tablet 50 mg PO BID PRN Pain 07/11/22 02/27/23 Unknown History calcium carbonate 500 mg calcium 500 mg PO DAILY 02/27/23 02/27/23 Unknown History (1,250 mg) tablet melatonin 5 mg tablet 5 mg PO BEDTIME 02/27/23 02/27/23 Unknown History polyvinyl alcohol 1.4 % eye drops 1 drp ophthalmic (eye) TID PRN 02/27/23 02/27/23 Unknown History (Artificial Tears (polyvinyl ITCHY EYES alcohol)) psyllium husk 3.4 gram/5.4 gram 1 tbsp PO DAILY 02/27/23 02/27/23 Unknown History oral powder (Metamucil) sennosides 8.6 mg tablet (senna) 8.6 mg PO DAILY 02/27/23 02/27/23 Unknown History Physical Exam Vital Signs: Vital Signs: Last Vital Signs Temp 98.2 F 02/28/23 07:40 Pulse 98 02/28/23 07:40 Resp 16 02/28/23 07:40 BP 136/76 02/28/23 07:40 Pulse Ox 96 02/28/23 07:40 O2 Del Method Room Air 02/28/23 07:40 O2 Flow Rate 2 02/27/23 18:43 BMI result Body Mass Index 20.6 Psych: Other: drooling,not responsive Results Labs 02/28/23 05:45 02/28/23 05:45 Labs: Short CBC 02/28/23 Range/Units 05:45 WBC 14.9 H (4.8-10.8) X10*3/uL Hgb 12.2 L (14.0-18.0) g/dl Hct 40.7 L (42.0-52.0) % Plt Count 228 (160-400) X10*3/uL BMP 02/28/23 05:45 Sodium 147 H Potassium 3.7 Chloride 114 H Carbon Dioxide 23 BUN 13 Creatinine 0.77 Calcium 9.3 D Microbiology Microbiology Results: Microbiology 02/27/23 09:29 Blood - Arterial Blood Culture - Preliminary No growth after 24 hours. 02/27/23 09:15 Blood - Arterial Blood Culture - Preliminary No growth after 24 hours. Assessment and Plan (1) Acute metabolic encephalopathy: Status: Acute He initially was thought to have aspiration pneumonia. CT unremarkable. Possible he has early aspiration or seizure disorder. (2) Vascular dementia: Status: Acute (3) Mood disorder: Status: Acute Plan Check procalcitonin Check EEG/Neurology evaluation. If all unremarkable for infection stop antibiotics Time Spent With Patient Time: Total time managing care of this patient today ____ minutes.
[2023-02-28 16:00] VITALS: BP 156/73; PULSE 87; RESP 16; TEMP 36.4; O2SAT 95
[2023-02-28] MEDS: Lactated Ringers 1,000 ML 100 ML IVCONT (16:54)
[2023-02-28 17:28] LABS: Anion Gap 12 (12-20); Blood Urea Nitrogen 14 mg/dL (9-16); Calcium 9.2 mg/dL (8.4-10.2); Carbon Dioxide 27 mmol/L (22-29); Chloride 112 mmol/L (96-108); Creatinine Clr Calc Pharmacy 76.8; Estimated Glomerular Filt Rate > 60; Glucose Random 93 mg/dL (60-115); Potassium 3.2 mmol/L (3.3-5.1); Sodium 148 mmol/L (135-145)
[2023-02-28 18:24] LABS: Procalcitonin 1.53 ng/mL
[2023-02-28 20:00] VITALS: BP 161/82; PULSE 88; RESP 18; TEMP 36.6; O2SAT 98
[2023-02-28] MEDS: rOPINIRole HCL 0.25 MG TABLET PO (20:07)
[2023-02-28] MEDS: Carbidopa/Levodopa CR 50/200 TABLET.ER 1 TAB PO (20:07)
[2023-02-28] MEDS: OXcarbazepine 300 MG TABLET PO (20:07)
--- NOTE | 2023-03-01 | EEG_ITS ---
This is a 16 channel EEG with an EKG lead. The patient is reported awake and confused during the tracing. Background EEG rhythm is 7 to 8 hertz 5 to 50 microvolt posteriorly and lower amplitude fast anteriorly. Photic stimulation and hyperventilation are not performed. Cardiac lead does not reveal any significant abnormality. No sharp wave spikes or paroxysmal tendency noted. IMPRESSION: Mild generalized slowing with no evidence of seizure disorder. MD FREDERICK Canales/KASEY / [phone]
[2023-03-01] MEDS: Lactated Ringers 1,000 ML 100 ML IVCONT (01:36)
[2023-03-01] MEDS: Piperacillin Sodium/Tazobactam 4.5 GM in 0.9 % Sodium Chloride 100 ML IV ×2 (02:10→10:17)
[2023-03-01 02:48] VITALS: BP 164/84; PULSE 86; RESP 16; TEMP 36.5; O2SAT 99
[2023-03-01] MEDS: vancomycin HCL 750 MG in 0.9 % Sodium Chloride 250 ML 265 MG IV (06:05)
--- NOTE | 2023-03-01 06:37 | PC.NURSE ---
This RN contacted pharmacy about this patient Vancomycin through and next dosing, through not drawn, pharmacy aware, and approve of giving the 0600 dose.
[2023-03-01 08:00] VITALS: BP 161/73; PULSE 72; RESP 18; TEMP 37; O2SAT 98
[2023-03-01 08:46] LABS: MANUAL DIFF FLAG NO
[2023-03-01 08:51] LABS: Basophils Percent Auto 0.5 % (0-2); Eosinophils Absolute Auto 0.1 X10*3/uL (0.0-0.4); Eosinophils Percent Auto 1.1 % (0-4); Hematocrit 35.4 % (42.0-52.0); Hemoglobin 10.5 g/dl (14.0-18.0); Imm Gran Abs Auto 0.02 X10*3/uL (0.00-0.03); Imm Gran Pct Auto 0.2 % (0.0-0.4); Lymphocytes Percent Auto 12.4 % (20-40); Mean Corpuscular HGB Conc 29.7 g/dl (31.0-36.0); Mean Corpuscular Hemoglobin 26.9 pg (27.0-33.0); Mean Corpuscular Volume 90.8 fL (80.0-98.0); Mean Platelet Volume 10.2 fL (9.4-12.4); Monocytes Absolute Auto 0.7 X10*3/uL (0.1-1.2); Monocytes Percent Auto 8.9 % (2-11); Neutrophils Absolute Auto 6.4 x10*3/uL (2.0-8.3); Neutrophils Percent Auto 76.9 % (45-73); Platelet Count 204 X10*3/uL (160-400); Red Cell Distribution Width 15.9 % (11.0-16.0); White Blood Count 8.3 X10*3/uL (4.8-10.8)
[2023-03-01 09:09] LABS: Anion Gap 12 (12-20); Blood Urea Nitrogen 14 mg/dL (9-16); Calcium 9.2 mg/dL (8.4-10.2); Carbon Dioxide 23 mmol/L (22-29); Chloride 116 mmol/L (96-108); Creatinine Clr Calc Pharmacy 77.8; Estimated Glomerular Filt Rate > 60; Glucose Random 86 mg/dL (60-115); Potassium 3.1 mmol/L (3.3-5.1); Sodium 148 mmol/L (135-145)
[2023-03-01] MEDS: 0.9 % Sodium Chloride Flush 3 ML SYRINGE IVFLUSH (10:15)
[2023-03-01] MEDS: Enoxaparin Sodium 80 MG/0.8 ML SYRINGE 65 MG SUBCUT (10:19)
[2023-03-01] MEDS: OXcarbazepine 300 MG TABLET PO (10:20)
[2023-03-01] MEDS: Tamsulosin HCL 0.4 MG CAPSULE PO (10:20)
[2023-03-01] MEDS: Carbidopa/Levodopa CR 50/200 TABLET.ER 1 TAB PO ×2 (10:20→13:02)
[2023-03-01] MEDS: Finasteride 5 MG TABLET PO (10:20)
[2023-03-01] MEDS: Sennosides 8.6 MG TABLET PO (10:21)
[2023-03-01] MEDS: Potassium Chloride Packet 20 MEQ PACKET PO (10:21)
[2023-03-01] MEDS: Potassium Chloride ER 10 MEQ TABLET.ER 20 MEQ PO (10:21)
--- NOTE | 2023-03-01 11:32 | HO.PM.IMPN ---
Subjective Subjective Date of Service: 03/01/23 Interval History: Seen and examined Interval history: More awake, answering questions, but aggitated but still largely nonverbal. Denies sob, cough. Weaned from O2. Review of Systems General: No fevers, malaise, unintentional weight loss Cardiovascular: No chest pain, palpitations Respiratory: No shortness of breath, wheezing, cough Physical Exam Vital Signs: Vital Signs: Last Vital Signs Temp 98.6 F 03/01/23 08:00 Pulse 72 03/01/23 08:00 Resp 18 03/01/23 08:00 BP 161/73 H 03/01/23 08:00 Pulse Ox 98 03/01/23 08:00 O2 Del Method Room Air 03/01/23 08:00 O2 Flow Rate 96 03/01/23 02:48 BMI result Body Mass Index 20.6 Constitutional - Awake and Alert, No apparent distress Eyes - PERRLA, EOMI Cardiovascular - S1S2, RRR, No edema Respiratory - Normal lung expansion, Normal respiratory effort, No respiratory distress, CTA bilaterally Gastrointestinal - NT / ND; +BS; No rebound or guarding Extremities - no calf tenderness bilaterally, no swelling Skin - Warm/Dry. No evidence skin infection Neurological - Alert and disoriented Objective Data Active Medications Acetaminophen (Acetaminophen Supp 650 Mg Supp.Rect) 650 mg OR Q6H PRN PRN Reason: Pain, Mild, fever Artificial Tears (Artificial Tears 15 Ml Drops) 1 drop EYE-BOTH TID PRN PRN Reason: ITCHY EYES Carbidopa/Levodopa (Carbidopa/Levodopa Cr 50/200 Tablet.Er) 1 tab PO QID [facility] Last Admin: 03/01/23 10:20 Dose: 1 tab Documented By: MYRNA Docusate Sodium (Docusate Sodium 100 Mg Capsule) 100 mg PO DAILY PRN PRN Reason: Constipation Enoxaparin Sodium (Enoxaparin Sodium 80 Mg/0.8 Ml Syringe) 65 mg SUBCUT Q12H [facility] Last Admin: 03/01/23 10:19 Dose: 65 mg Documented By: MYRNA Finasteride (Finasteride 5 Mg Tablet) 5 mg PO DAILY [facility] Last Admin: 03/01/23 10:20 Dose: 5 mg Documented By: MYRNA Piperacillin Sod/Tazobactam (Sod 4.5 gm/ Sodium Chloride) 100 mls @ 200 mls/hr IV Q6H [facility] Last Infusion: 03/01/23 11:30 Dose: 0 mls/hr Documented By: MYRNA Vancomycin HCl 750 mg/ Sodium (Chloride) 265 mls @ 265 mls/hr IV Q12H [facility] Last Infusion: 03/01/23 07:44 Dose: 0 mls/hr Documented By: MYRNA Lactated Ringer's (Lr) 1,000 mls @ 100 mls/hr IVCONT .Q10H [facility] Last Admin: 03/01/23 01:36 Dose: 100 mls/hr Documented By: TANNER Lactulose (Lactulose 20 Gm/30 Ml Solution) 20 gm PO DAILY [facility] Last Admin: 03/01/23 10:28 Dose: Not Given Documented By: MYRNA Non-Admin Reason: Patient Refused Ondansetron HCl (Ondansetron Hcl 4 Mg/2 Ml Vial) 4 mg IVPUSH Q8H PRN PRN Reason: Nausea and Vomiting Oxcarbazepine (Oxcarbazepine 300 Mg Tablet) 300 mg PO BID [facility] Last Admin: 03/01/23 10:20 Dose: 300 mg Documented By: MYRNA Pharmacy Consult (Consult Rx Perform Med Rec) 1 each MISCELLANE ONCE PRN PRN Reason: Consult order Pharmacy Consult (Consult Rx Vancomycin Dosing) 1 each MISCELLANE DAILY PRN PRN Reason: Consult order Potassium Chloride (Potassium Chloride Er 10 Meq Tablet.Er) 20 meq PO DAILY [facility] Last Admin: 03/01/23 10:21 Dose: 20 meq Documented By: MYRNA Psyllium Hydrophilic Mucilloid (Psyllium Seed 3.4 Gm Powd.Pack) 3.4 gm PO DAILY [facility] Last Admin: 03/01/23 10:21 Dose: 3.4 gm Documented By: MYRNA Ropinirole HCl (Ropinirole Hcl 0.25 Mg Tablet) 0.25 mg PO BEDTIME [facility] Last Admin: 02/28/23 20:07 Dose: 0.25 mg Documented By: TANNER Senna (Sennosides 8.6 Mg Tablet) 8.6 mg PO DAILY [facility] Last Admin: 03/01/23 10:21 Dose: 8.6 mg Documented By: MYRNA Sodium Chloride (0.9 % Sodium Chloride Flush 3 Ml Syringe) 3 ml IVFLUSH QSHIFT [facility] Last Admin: 03/01/23 10:15 Dose: 3 ml Documented By: MYRNA Tamsulosin HCl (Tamsulosin Hcl 0.4 Mg Capsule) 0.4 mg PO DAILY [facility] Last Admin: 03/01/23 10:20 Dose: 0.4 mg Documented By: MYRNA Labs 03/01/23 08:03 03/01/23 08:03 Labs: Laboratory Results - last 24 hr 02/28/23 03/01/23 03/01/23 15:30 07:03 08:03 MCV 90.8 MCH 26.9 L MCHC 29.7 L RDW 15.9 Plt Count 204 MPV 10.2 Immature Gran % (Auto) 0.2 Neut % (Auto) 76.9 H Lymph % (Auto) 12.4 L [place] % (Auto) 8.9 Eos % (Auto) 1.1 Baso % (Auto) 0.5 Lymph # (Auto) 1.0 L [place] # (Auto) 0.7 Eos # (Auto) 0.1 Baso # (Auto) 0.0 Abs Immat Gran (auto) 0.02 Absolute Neuts (auto) 6.4 Absolute Nucleated RBC 0.000 Nucleated RBC % (auto) 0.0 Anion Gap 12 Estim Creat Clear Calc 76.8 Estimated GFR > 60 Random Glucose 93 Calcium 9.2 Procalcitonin 1.53 Vancomycin Trough Cancelled 03/01/23 08:03 MCV MCH MCHC RDW Plt Count MPV Immature Gran % (Auto) Neut % (Auto) Lymph % (Auto) [place] % (Auto) Eos % (Auto) Baso % (Auto) Lymph # (Auto) [place] # (Auto) Eos # (Auto) Baso # (Auto) Abs Immat Gran (auto) Absolute Neuts (auto) Absolute Nucleated RBC Nucleated RBC % (auto) Anion Gap 12 Estim Creat Clear Calc 77.8 Estimated GFR > 60 Random Glucose 86 Calcium 9.2 Procalcitonin Vancomycin Trough Microbiology Microbiology Results: Microbiology 02/27/23 09:15 Blood Culture - Preliminary Blood - Arterial No growth after 48 hours. 02/27/23 09:29 Blood Culture - Preliminary Blood - Arterial No growth after 24 hours. Assessment and Plan (1) Sepsis: Status: Acute (2) Pneumonia: Status: Acute (3) Acute metabolic encephalopathy: Status: Acute Plan 73-year-old male with history of vascular dementia, history of CVA with left-sided hemiparesis, ? Parkinson's disease, unspecified atrial fibrillation anticoagulated with Xarelto,hypertension, BPH, and recurrent pneumonia admitted for acute hypoxemic respiratory failure secondary to suspected pneumonia. # acute hypoxemic respiratory failure- resolved -likely 2/2 pneumonia with sepsis -continue supplemental O2 to maintain oximetry >92% - no known chronic lung disease #Acute metabolic encephalopathy- continue to improve -likely secondary to pneumonia -Head CT negative for acute abnormality. UA unremarkable -abx as below -Chopped diet per MODELING AND SIMULATION ANALYST #Acute pneumonia with sepsis- suspected given clinical picture -pt with metabolic encephalopathy drooling on exam with yellow sputum on deep suction at [facility]- suspect aspiration -CT chest negative -Febrile to 101, tachycardic to 123, tachypneic to 28.? Lactic acid normal.? No severe sepsis /shock- sepsis resolved -Now with leukocytosis 14.1 -cover with broad-spectrum antibiotics? vanco and Zosyn (initiated 02/27) -suction per respiratory therapy p.r.n. - respiratory panel negative -Chopped solids, thin liquids per MODELING AND SIMULATION ANALYST -Procal elevated at 1.65 -ID input appreciated #?seizure -as cause for AMS, fever, drooling, hypoxia -Seems less likely, but will evaluate EEG and request neuro eval -Head CT negative for acute findings #Mild hypernatremia -Na 147. Given IV D5 1/2 Ns -Recheck bmp @ 3 -Change to LR given NPO status #HTN -bp's reasonably controlled but soft -Continue holding home meds #Unspecified? atrial fibrillation - tachycardic related to sepsis, not AFib RVR - hold Xarelto due to NPO status as above.? Continue therapeutic Lovenox - not on rate control medications # Parkinson's disease - Resume sinemet # BPH - continue home meds ?DVT prophylaxis- on therapeutic Lovenox ?full code ?patient requires ongoing inpt stay for management of suspected aspiration pneumonia wtih ongoing metabolic encephalopathy requiring IV abx and close monitoring of mentation and assistance with secretion management to prevent reaspiration Time Spent With Patient Time: Total time managing care of this patient today ____ minutes. Quality Stroke Does the patient have a stroke diagnosis?: No VTE Prior VTE?: No VTE Risk Level:: Medical - moderate - high VTE Device Contraindication: Treatment Not Indicated VTE Drug Contraindication: N/A - Med Ordered
--- NOTE | 2023-03-01 12:33 | PM.DS ---
DS: Providers Provider Date of Service: 03/01/23 Date of admission: 02/27/23 15:48 Date of discharge: 03/01/23 Primary care physician: Martin Telles DO Admitting clinician: Janet Mead Attending physician on admission: Marques Gauthier Consults: 02/27/23 16:04 Consult to Infectious Diseases Routine Consulting Provider: [facility] [place] Disease Reason for consultation: sepsis, ?aspiration pneumonia 02/28/23 15:30 Consult to Neurology Routine Consulting Provider: [facility] Reason for consultation: AMS- ?seizure Attending physician on discharge: Martin Telles Discharging clinician: Janet Mead DS: Diagnosis Discharge Diagnosis (1) Sepsis: Status: Acute (2) Pneumonia: Status: Acute (3) Acute metabolic encephalopathy: Status: Acute DS: Summary Hospital Course Hospital Course: HPI on admission 02/27: Chief Complaint: hypoxia, ams ?73-year-old male with history of vascular dementia, history of CVA with left-sided hemiparesis, ? Parkinson's disease, unspecified atrial fibrillation anticoagulated with Xarelto,hypertension, BPH, and recurrent pneumonia presented to the ED from [facility] where he resides for evaluation of hypoxia and altered mental status.? Per [facility]. at [facility], patient was found with dusky appearance hypoxic to 85%.? She states at that time he was afebrile but she does suction him with yellow sputum.? She states he was diminished at the bases bilaterally with some wheezing in the upper lobes.? States at baseline, patient is alert and oriented and very conversive.? On arrival, patient is unable to give history.? Initially patient was afebrile but did develop fever of 101 and is tachycardic to 123, tachypneic to 24.? He arrived on 2 L supplemental O2 due to his hypoxia.? There is no leukocytosis.? Renal function normal, electrolyte levels normal.? Urinalysis unremarkable.? Head CT shows severe lateral and 3rd ventriculomegaly with findings? suspicious for NPH.? There is also chronic right-sided straight a capsular infarct and chronic appearing infarct more superiorly within the right? frontoparietal lobe.? Chest CT is negative for any acute pulmonary abnormality.? In the ED, given 650 mg acetaminophen per rectum, 1 L IV NS, and 3.375 g IV Zosyn. Hospital course: Patient admitted for suspected pneumonia with sepsis with concerns for aspiration. Given metabolic encephalopathy, he was kept NPO and was evaluated by GETTERER once more awake and oriented who recommended chopped diet with thin liquids and 1:1 feeds. He was treated with vancomycin and zosyn while admitted with gradual improvement in mental status. Orders were placed for suctioning as needed but patient was able to manage secretions on his own. PO intake was limited and developed a mild hypernatremia of 148 with chloride 114 and hypokalemia of 3.0. Potassium was repleted and was given IV LR. He was evaluated by infectious disease who recommended evaluating for seizure given initial presentation and EEG was ordered and results are pending. Given clinical improvements and history of recurrent pneumonia, infectious picture seems more likely and procalcitonin was elevated at 1.65 but should rule out alternative cause given lack of radiological evidence of pneumonia. Unfortunately on day of discharge, IV access was lost and multiple attempts were made to reestablish without success. Case was discussed with Dr. Telles recommending transition to PO antibiotics and discharge back to [facility] given overall clinical improvements, hemodynamic stability, and improved mental status where he will continue overseeing care. Given initial doses of augmentin and doxycycline. Continue augmentin 875mg BID and doxycycline 100mg BID x 7 days. Encourage PO intake and recheck lytes in 2-3 days. Status at Discharge Functional status at discharge: wheelchair bound Overall status at discharge: patient is progressing back to baseline Time Spent with Patient Time attestation: Total time managing care of this patient today ____ minutes. Discharge coordination time: Greater than 30 minutes Quality: Safe Use of Opioids Does Pt have an Active Cancer Diagnosis on the Problem List?: No Quality: Stroke Does the patient have a stroke diagnosis?: No Physical Exam Vital Signs: Vital Signs: Last Vital Signs Temp 98.6 F 03/01/23 08:00 Pulse 72 03/01/23 08:00 Resp 18 03/01/23 08:00 BP 161/73 H 03/01/23 08:00 Pulse Ox 98 03/01/23 08:00 O2 Del Method Room Air 03/01/23 08:00 O2 Flow Rate 96 03/01/23 02:48 BMI result Body Mass Index 20.6 Constitutional - Awake and Alert, No apparent distress Eyes - PERRLA, EOMI Cardiovascular - S1S2, RRR, No edema Respiratory - Normal lung expansion, Normal respiratory effort, No respiratory distress, CTA bilaterally Gastrointestinal - NT / ND; +BS; No rebound or guarding Extremities - no calf tenderness bilaterally, no swelling Musculoskeletal - Normal inspection, normal ROM Skin - Warm/Dry. No evidence skin infection Neurological - Alert and oriented to self, answering questions appropriately but aggitated DS: Data Data Completed and Pending Labs on day of discharge: Laboratory Results - last 24 hr 02/28/23 03/01/23 03/01/23 15:30 07:03 08:03 WBC 8.3 RBC 3.90 L Hgb 10.5 L Hct 35.4 L MCV 90.8 MCH 26.9 L MCHC 29.7 L RDW 15.9 Plt Count 204 MPV 10.2 Immature Gran % (Auto) 0.2 Neut % (Auto) 76.9 H Lymph % (Auto) 12.4 L [place] % (Auto) 8.9 Eos % (Auto) 1.1 Baso % (Auto) 0.5 Lymph # (Auto) 1.0 L [place] # (Auto) 0.7 Eos # (Auto) 0.1 Baso # (Auto) 0.0 Abs Immat Gran (auto) 0.02 Absolute Neuts (auto) 6.4 Absolute Nucleated RBC 0.000 Nucleated RBC % (auto) 0.0 Sodium 148 H Potassium 3.2 L Chloride 112 H Carbon Dioxide 27 Anion Gap 12 BUN 14 Creatinine 0.80 Estim Creat Clear Calc 76.8 Estimated GFR > 60 Random Glucose 93 Calcium 9.2 Procalcitonin 1.53 Vancomycin Trough Cancelled 03/01/23 08:03 WBC RBC Hgb Hct MCV MCH MCHC RDW Plt Count MPV Immature Gran % (Auto) Neut % (Auto) Lymph % (Auto) [place] % (Auto) Eos % (Auto) Baso % (Auto) Lymph # (Auto) [place] # (Auto) Eos # (Auto) Baso # (Auto) Abs Immat Gran (auto) Absolute Neuts (auto) Absolute Nucleated RBC Nucleated RBC % (auto) Sodium 148 H Potassium 3.1 L Chloride 116 H Carbon Dioxide 23 Anion Gap 12 BUN 14 Creatinine 0.79 Estim Creat Clear Calc 77.8 Estimated GFR > 60 Random Glucose 86 Calcium 9.2 Procalcitonin Vancomycin Trough Preliminary micro results at discharge 02/27/23 09:29 Blood Culture - Preliminary Blood - Arterial No growth after 48 hours. 02/27/23 09:15 Blood Culture - Preliminary Blood - Arterial No growth after 48 hours. Discharge Plan Discharge Anticipated Discharge Date/Time: 03/01/23 12:37 Patient Disposition: Xfer [facility] Discharge Diagnosis: Pneumonia, metabolic encepahlopathy Referrals: [facility] [Outside] - 1 Week Martin Telles DO [Primary Care Provider] - 1 Week Discharge Medications: New doxycycline monohydrate 100 mg Capsule 100 mg PO Q12H Qty: 14 0RF amoxicillin-pot clavulanate 875-125 mg Tablet 875 mg PO Q12H Qty: 14 0RF Continued sennosides [senna] 8.6 mg Tablet 8.6 mg PO DAILY polyvinyl alcohol [Artificial Tears (polyvin alc)] 1.4 % Drops 1 drp OPHTHALMIC (EYE) TID PRN (Reason: ITCHY EYES) calcium carbonate 500 mg calcium (1,250 mg) Tablet 500 mg PO DAILY melatonin 5 mg Tablet 5 mg PO BEDTIME Metamucil 3.4 gram/5.4 gram Powder 1 tbsp PO DAILY Rx Instructions: mix into at least 8 oz of water or juice before administering carbidopa-levodopa 50-200 mg tablet extended release 1 tab PO QID acetaminophen 325 mg tablet 325 mg PO QID PRN (Reason: Pain) Rx Instructions: PAIN OR FEVER Xarelto 15 mg tablet 15 mg PO DAILY potassium chloride 10 mEq tablet extended release 20 meq PO DAILY lactulose 10 gram/15 mL solution 30 ml PO DAILY finasteride 5 mg tablet 5 mg PO DAILY hydrochlorothiazide 25 mg tablet 25 mg PO DAILY tamsulosin 0.4 mg capsule 0.4 mg PO DAILY ropinirole 0.25 mg tablet 0.25 mg PO BEDTIME tramadol 50 mg tablet 50 mg PO BID PRN (Reason: Pain) oxcarbazepine 300 mg tablet 300 mg PO BID Discharge Orders: Discharge Order (Routine); Ordered 03/01/23 Ordered By: Janet Mead Diet: Advance to usual diet Activity on Discharge: As tolerated Stand Alone Forms: Patient Portal Discharge page Care Plan Goals: Return to [facility] and continue treatment for pneumonia Health Concerns: Suspected aspiration pneumonia Metabolic encephalopathy Plan of Treatment: Continue Augmentin 875 mg twice daily and doxycycline twice daily with food and full glass of water x7 days Encourage p.o. fluids Assessment: As above Discharge Date/Time: 03/01/23 14:27
[2023-03-01] MEDS: Amoxicillin/Potassium Clav 875 MG TABLET PO (13:02)
[2023-03-01] MEDS: Doxycycline Monohydrate 100 MG CAPSULE PO (13:02)
--- NOTE | 2023-03-01 13:14 | MHC.CM.PN ---
Per Dr Telles discharge today. [facility] has been notified of the discharge today. DC Summary and Packet have been sent to the facility. Patient will transport via BLS. 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
--- NOTE | 2023-03-01 16:57 | MHC.SL.SWA ---
Speech Pathologist Impression: Risk of Aspiration Due to: Lethargy Medically Fragile Neurological Condition History of Pneumonia Poor PO Intake Weak Cough Dysphasia Diet Status: Recommend patient continue with NDD3, thin liquids, pills crushed in puree. Recommend full supervision. Patient benefits from cues to slow rate of ingestion and alternate liquids/solids. Liquid Consistency and Strategies for Safe Swallow: Liquid Intake Recommendation: Thin Liquid Intake Strategies: Small Sips Solid Food Consistency: Dietary Recommendations: Chopped/Advanced (NDD3) Additional Modifications to Solid Foods: Recommend Pt commence with PO diet of Chopped/Advanced Solids (NDD3) with Thin Liquids. Pt will require 1:1 assistance with meals at this time. Encourage self-feeding. GUI DEVELOPER will continue to follow. Oral Medication Intake: Crushed with Puree Please contact the pharmacy regarding appropriate crushable or liquid drug formulations that are available whenever modified delivery is recommended. Compensatory Strategies and Precautions to be Taken for Safe Swallow: Sitting Upright (90 deg) Small Bites and Sips Alternate Liquids/Solids Rate of Ingestion Change Supervision While Eating and Drinking for Safe Swallow: Total Supervision (1:1) Foods to Avoid: Mixed consistencies including soups, cereal with milk, and fruit cups. Swallowing Recommended Treatments: Compens. Strategy Educat. Recommendation for Speech: Inpatient Speech Therapy Comment: Frequency/Duration: Date Range for Service Req: Timeline to reassess: PRN Articulation Officer Clinican/Clinical Fellow: No Supervisory Statement: I have reviewed and agree with the student/clinical fellow's documentation: No Speech Language Pathologist: Snehal Valadez M.A., GUI DEVELOPER
== END 2023-03-01 14:27 | disposition home or self-care (01) | DRG 871 ==
LOC: HO.ED 14:14 → HO.EDOVER 16:01 → HO.S3 17:13
PROVIDERS: Admitting Provider Physician Assistant; Emergency Provider Student in an Organized Health Care Education/Training Program; PCP Hospitalist; Visit Provider Physician Assistant
DX: A41.9 Sepsis, unspecified organism (principal); G93.41 Metabolic encephalopathy; J96.01 Acute respiratory failure with hypoxia; I69.354 Hemiplegia and hemiparesis following cerebral infarction affecting left non-dominant side; I48.19 Other persistent atrial fibrillation; E87.0 Hyperosmolality and hypernatremia; G20 Parkinson's disease; F02.80 Dementia in other diseases classified elsewhere, unspecified severity, without behavioral disturbance, psychotic disturbance, mood disturbance, and anxiety; F01.50 Vascular dementia, unspecified severity, without behavioral disturbance, psychotic disturbance, mood disturbance, and anxiety; N40.0 Benign prostatic hyperplasia without lower urinary tract symptoms; Z20.822 Contact with and (suspected) exposure to COVID-19; Z79.01 Long term (current) use of anticoagulants; Z79.899 Other long term (current) drug therapy
CPT/HCPCS: 36415; 70450; 71250; 80048; 80053; 81003; 83605; 84145; 85025; 85610; 87040; 87633; 92526; 92610; 93005; 95816; 99285; J1650; J2543; J3370; J3371

== ENCOUNTER 2024-11-24 08:06 | Inpatient (IN) | payer MEDICARE, MEDICAID, SELFPAY ==
[2024-11-24] VITALS (19 sets, daily range): BP systolic 99–187; BP diastolic 44–92; PULSE 69–114; RESP 16–22; TEMP 36.9–39.1; O2SAT 88–99; BMI 22.6
--- NOTE | ~2024-11-24 | XR_ITS ---
EXAMINATION: XR CHEST 1 VIEW HISTORY: NG tube place verify COMPARISON: Comparison is made with the prior examination dated 11/24/2024. FINDINGS: A single AP portable view of the chest performed at 10:47 AM is submitted. A nasogastric tube is noted with its tip in the stomach and its sidehole at the GE junction. There are low lung volumes. The lungs are grossly clear. There is no pleural effusion, pneumothorax, or pulmonary vascular congestion. The heart is normal in size. There is degenerative disc disease of the spine. XR/XR chest 1V IMPRESSION: The tip of the nasogastric tube is in the stomach. However, the sidehole is at the GE junction and advancement of the tube is recommended. Electronically signed by: Musa Bhatti MD 11/25/2024 11:00 AM EDT
--- NOTE | ~2024-11-24 | CT_ITS ---
CLINICAL HISTORY: abd pain, hematemesis CT abdomen and pelvis with contrast Comparison: CT - CT ABDOMEN PELVIS W IV CON - 11/24/24 09:57 EDT Findings: Ground-glass opacities are seen in the lower lung zones. There is a small left renal cyst. The gallbladder is normal. The solid organs are unremarkable. The stomach and proximal small bowel are distended. There is no gastric wall thickening. The proximal jejunum is dilated measuring up to 3.9 cm in greatest diameter. The rest of the small bowel is normal in caliber. There is no evidence of a discrete transition or obstructing lesion. Pelvic contents unremarkable. Normal appendix. A small calculus is seen dependently within the urinary bladder. There is no bladder wall thickening. There is heterotopic bone formation about the left hip. The rest of the GI tract is unremarkable. IMPRESSION: 1. Ground-glass opacification in the lower lobes may be infectious in nature. 2. Distention of the stomach and small bowel through the proximal jejunum without evidence of high-grade mechanical obstruction. Consider gastroenteritis. A gastric mass is not identified. There is no evidence of active bleeding. This document has been electronically signed by: Mark Shipman MD on 11/24/2024 12:34:33
--- NOTE | ~2024-11-24 | XR_ITS ---
CLINICAL HISTORY: ? aspiration Single view of the chest. COMPARISON: None FINDINGS: Enteric tube extends into the abdomen with tip and side hole overlying the expected location of the stomach body/antrum. Low lung volumes. Normal heart size. Elevation of the right hemidiaphragm. Crowding of the bronchovascular markings, likely secondary to low lung volumes. No pneumothorax. No fracture identified. IMPRESSION: 1. Enteric tube (NG/OG) tip and side hole overlie the expected location of the stomach body/antrum. 2. Low lung volumes with associated crowding of the bronchovascular markings. This document has been electronically signed by: Kilo Benitez MD on 11/24/2024 17:21:01
--- NOTE | 2024-11-24 08:19 | ED_ITS ---
HPI - General Adult General Chief complaint: GI Bleed Stated complaint: AMS Time Seen by Provider: 11/24/24 08:10 Source: patient, EMS, RN notes reviewed and old records reviewed Mode of arrival: EMS Limitations: altered mental status History of Present Illness ED Provider: Jazlyn HPI narrative: Patient is a 74-year-old male with history of Parkinson's, afib on rivaroxaban, vascular dementia, mood disorer, HTN, BPH presenting to the ED from [facility] with report of vomiting coffee ground emesis since last night, patient complaining of abdominal pain. History limited due to patient's dementia. MD complaint: hematemesis Onset (ago): hour(s) Location: abdomen Related Data Home Medications ?Medication ?Instructions ?Recorded ?Confirmed acetaminophen 325 mg tablet 325 mg PO QID PRN Pain 07/11/22 02/27/23 carbidopa ER 50 mg-levodopa 200 mg 1 tab PO QID 07/11/22 02/27/23 tablet,extended release finasteride 5 mg tablet 5 mg PO DAILY 07/11/22 02/27/23 hydrochlorothiazide 25 mg tablet 25 mg PO DAILY 07/11/22 02/27/23 lactulose 10 gram/15 mL oral 30 ml PO DAILY 07/11/22 02/27/23 solution oxcarbazepine 300 mg tablet 300 mg PO BID 07/11/22 02/27/23 potassium chloride 10 mEq 20 meq PO DAILY 07/11/22 02/27/23 tablet,extended release rivaroxaban 15 mg tablet (Xarelto) 15 mg PO DAILY 07/11/22 02/27/23 ropinirole 0.25 mg tablet 0.25 mg PO BEDTIME 07/11/22 02/27/23 tamsulosin 0.4 mg capsule 0.4 mg PO DAILY 07/11/22 02/27/23 tramadol 50 mg tablet 50 mg PO BID PRN Pain 07/11/22 02/27/23 calcium carbonate 500 mg PO DAILY 02/27/23 02/27/23 melatonin 5 mg tablet 5 mg PO BEDTIME 02/27/23 02/27/23 polyvinyl alcohol 1.4 % eye drops 1 drp ophthalmic (eye) TID PRN 02/27/23 02/27/23 (Artificial Tears (polyvinyl ITCHY EYES alcohol)) psyllium husk 3.4 gram/5.4 gram 1 tbsp PO DAILY 02/27/23 02/27/23 oral powder (Metamucil) sennosides 8.6 mg tablet (senna) 8.6 mg PO DAILY 02/27/23 02/27/23 Previous Rx's ?Medication ?Instructions ?Recorded amoxicillin 875 mg-potassium 875 mg PO Q12H #14 tabs 03/01/23 clavulanate 125 mg tablet doxycycline monohydrate 100 mg 100 mg PO Q12H #14 caps 03/01/23 capsule Allergies Allergy/AdvReac Type Severity Reaction Status Date / Time No Known Allergies Allergy Verified 11/24/24 08:36 Review of Systems 2 Review of Systems: As per HPI Yes all other systems are reviewed and are negative Constitutional: Constitutional: Reports as per HPI PMFSH Past Medical History Medical History Atrial fibrillation BPH (benign prostatic hyperplasia) External hemorrhoids with complication Hypertension Hypokalemia Mood disorder Parkinson disease Vascular dementia Social History Social History Household Members: None Housing: Half-Way Do you presently have visiting nurse or other home services: No Unable to assess alcohol history related to: Unknown Alcohol intake: former Patient Tobacco Use Status: Tobacco use Unknown Smoked in Last 30 Days: No Use of substances other than those prescribed or required for medical reasons: No Advance Directives: No Advance Directives Information Provided: No Do you have a plan to hurt others: No Plan service: No Physical Exam ED Vital Signs: Vital Signs - 24 hr 11/24/24 08:11 11/24/24 09:10 11/24/24 09:25 Temperature 102.3 F H Pulse Rate 114 H 107 H Respiratory Rate 20 18 Blood Pressure 159/92 H 135/62 Pulse Oximetry 94 97 88 L Oxygen Delivery Method Room Air Room Air Nasal Cannula Oxygen Flow Rate 4 11/24/24 09:25 11/24/24 09:25 11/24/24 10:00 Temperature Pulse Rate 101 H 97 Respiratory Rate 22 H 18 Blood Pressure 99/66 130/51 L Pulse Oximetry 90 L 92 97 Oxygen Delivery Method Nasal Cannula Oxymask Room Air Oxygen Flow Rate 6 4 11/24/24 10:40 11/24/24 10:45 11/24/24 11:04 Temperature 100.9 F H 100.9 F H Pulse Rate 93 97 Respiratory Rate 18 18 Blood Pressure 115/48 L 101/44 L Pulse Oximetry 97 97 Oxygen Delivery Method Room Air Room Air Oxygen Flow Rate 11/24/24 12:29 11/24/24 12:59 11/24/24 13:44 Temperature 100.6 F H 100.4 F Pulse Rate 101 H 100 89 Respiratory Rate 18 18 18 Blood Pressure 132/56 L 113/47 L 115/58 L Pulse Oximetry 97 95 96 Oxygen Delivery Method Room Air Room Air Room Air Oxygen Flow Rate 11/24/24 15:50 Temperature 99.9 F Pulse Rate 97 Respiratory Rate 18 Blood Pressure 143/48 H Pulse Oximetry 97 Oxygen Delivery Method Room Air Oxygen Flow Rate BMI result Body Mass Index 22.6 Vital signs have been reviewed and appear to be correct. Blood pressure elevated. Heart rate tachycardic. Respiratory rate normal. Temperature febrile. Oxygen saturation normal. Const General: cooperative and ill appearing chronically Orientation/consciousness: oriented to person [facility] Head: Yes normocephalic and Yes atraumatic Ears: external ears normal General nose exam: Normal external nose present Face and sinus: Yes face symmetric Mouth: oropharynx normal and moist mucous membranes Throat: Yes uvula midline Eyes Pupils: Equal, round and reactive pupils present Neck Neck: Yes normal visual inspection and Yes supple Resp Effort & Inspection: normal respiratory effort Auscultation: clear to auscultation bilaterally Cardio Rate: regular rate Rhythm: regular rhythm Heart sounds: S1 normal heart sound present and S2 normal heart sound present General: Yes no CVA tenderness Back/Spine/Pelvis Back: no CVA tenderness Skin General skin exam: elasticity normal and turgor normal Neuro General: oriented to person, moves all extremities and no focal motor deficits Cranial nerves: Yes Equal, round and reactive pupils present Extrem General: Yes full ROM, Yes no pedal edema and Yes no calf tenderness Medications Administered Discontinued Medications Generic Name Dose Route Start Last Admin Trade Name Freq PRN Reason Stop Dose Admin Acetaminophen 650 mg 11/24/24 08:30 11/24/24 08:50 Acetaminophen Supp 650 Mg Supp.Rect OR 11/24/24 08:31 650 mg ONCE ONE Administration Piperacillin Sod/Tazobactam 50 mls @ 100 mls/hr 11/24/24 08:30 11/24/24 09:23 Sod 3.375 gm/ Sodium Chloride IV 11/24/24 08:59 Infused ONCE ONE Infusion Lactated Ringer's 2,139 mls @ 2,139 mls/hr 11/24/24 09:23 11/24/24 10:36 Lr 30 ml/kg infuse over 1 hr (2139 ml) 11/24/24 10:22 Infused IV Infusion .Q1H ONE Lactated Ringer's 1,000 mls @ 999 mls/hr 11/24/24 13:00 11/24/24 13:44 Lr IV 11/24/24 14:00 Infused .Q1H1M THA Infusion Iohexol 100 ml 11/24/24 10:06 11/24/24 10:06 Iohexol 350 Mg/Ml 100 Ml Infus..Btl IV 11/24/24 10:07 85 ml ONCE ONE Administration Lidocaine HCl 5 ml 11/24/24 08:33 11/24/24 08:50 Lidocaine Hcl 1 % Mpf 5 Ml Vial INFILTRATI 11/24/24 08:34 5 ml ONCE ONE Administration Lidocaine HCl 15 ml 11/24/24 12:06 11/24/24 12:29 Lidocaine Hcl Viscous 2 % 15 Ml Solution MUCOUS MEM 11/24/24 12:07 15 ml ONCE ONE Administration Lorazepam 1 mg 11/24/24 15:39 11/24/24 15:46 Lorazepam 2 Mg/Ml Vial IVPUSH 11/24/24 15:40 1 mg ONCE ONE Administration Morphine Sulfate 2 mg 11/24/24 12:06 11/24/24 12:29 Morphine Sulfate 2 Mg/Ml Cartridge IVPUSH 11/24/24 12:07 Not Given ONCE ONE Protocol Pantoprazole Sodium 40 mg 11/24/24 08:34 11/24/24 08:50 Pantoprazole Sodium 40 Mg/10 Ml Vial IVPUSH 11/24/24 08:35 40 mg ONCE ONE Administration Medical Decision Making Medical Decision Making MDM Narrative: Patient is a 74-year-old male with history of Parkinson's, afib on rivaroxaban, vascular dementia, mood disorer, HTN, BPH presenting to the ED from [facility] with report of vomiting coffee ground emesis since last night, patient complaining of abdominal pain. On exam patient is awake, A+Ox1, patient is febrile and tachycardic, physical exam findings as above. Given reported symptoms and physical exam findings, initial differential includes but is not limited to sepsis, GI bleed, bowel obstruction, perforation, or abscess, UTI, pneumonia, electrolyte abnormality. Labs notable for leukocytosis with left shift, elevated lactic. CT notable for distention of the stomach and small bowel without evidence of high grade obstruction. My interpretation is in agreement with the radiologist's interpretation. Clinically patient is uncomfortable appearing, abdomen is rigid, spoke with Dr. Patel who came to evaluate patient bedside. He does not feel patient has an acute abdomen, recommends consulting with GI. Spoke with Dr. Mooney, GI, who recommends making patient NPO, continuing with pantoprazole, and holding Xarelto for 24 hours so patient can have endoscopy. Case discussed with Dr. Keller, patient examined by ERIKA Gonzales hospitalist, who is concerned that patient's abdomen is rigid on her exam. Hospitalist recommending CXR, repeat lactic, CBC. Patient signed out to ERIKA Pierre pending re-evaluation/disposition. Differential Diagnosis Differential Diagnoses: The differential diagnosis associated with the presentation includes As per [facility] Admission/Observation Consideration of admission/observation: Escalation of care including admission/observation considered Consult Healthcare Provider Management of the patient was discussed with: Hospitalist and High [employer] English Teacher (Dr. Patel, Dr. Mooney) Lab Data [facility] Lab Attestation statement: I reviewed the patient's lab results. As per [facility] 11/24/24 15:47 11/24/24 08:48 Labs: Lab Results 11/24/24 11/24/24 11/24/24 Range/Units 08:48 08:49 09:06 WBC 22.3 H (4.8-10.8) X10*3/uL RBC 5.03 D (4.60-5.80) X10*6/uL Hgb 14.6 D (14.0-18.0) g/dl Hct 44.3 D (42.0-52.0) % MCV 88.1 (80.0-98.0) fL MCH 29.0 (27.0-33.0) pg MCHC 33.0 (31.0-36.0) g/dl RDW 15.1 (11.0-16.0) % Plt Count 255 (160-400) X10*3/uL MPV 9.8 (9.4-12.4) fL Immature Gran % (Auto) 0.7 H (0.0-0.4) % Neut % (Auto) 94.1 H (45-73) % Lymph % (Auto) 1.5 L (20-40) % Shannon % (Auto) 3.6 (2-11) % Eos % (Auto) 0.0 (0-4) % Baso % (Auto) 0.1 (0-2) % Lymph # (Auto) 0.3 L (1.2-4.9) X10*3/uL Shannon # (Auto) 0.8 (0.1-1.2) X10*3/uL Eos # (Auto) 0.0 (0.0-0.4) X10*3/uL Baso # (Auto) 0.0 (0.0-0.2) X10*3/uL Abs Immat Gran (auto) 0.15 H (0.00-0.03) X10*3/uL Absolute Neuts (auto) 21.0 H (2.0-8.3) x10*3/uL Absolute Nucleated RBC 0.000 (0.0-0.012) X10*3/uL Nucleated RBC % (auto) 0.0 (0.0-0.2) /100WBC Smear Tech's Comments VERIFIED PT 14.0 H (10.9-12.4) SEC INR 1.2 H (0.9-1.1) Sodium 138 (135-145) mmol/L Potassium 3.8 (3.3-5.1) mmol/L Chloride 100 (96-108) mmol/L Carbon Dioxide 25 (22-29) mmol/L Anion Gap 17 (12-20) BUN 28 H (9-16) mg/dL Creatinine 0.89 (0.5-1.4) mg/dL Estim Creat Clear Calc 74.5 Estimated GFR > 60 Random Glucose 154 H (60-115) mg/dL Lactic Acid 4.3 H* (0.5-2.0) mmol/L Calcium 9.2 (8.4-10.2) mg/dL Magnesium 2.1 (1.6-2.6) mg/dL Total Bilirubin 0.6 (0.0-1.0) mg/dL AST 19 (5-37) U/L ALT 11 (0-40) U/L Alkaline Phosphatase 102 (39-117) U/L Total Protein 8.4 H (6.5-8.0) g/dL Albumin 4.3 (3.5-5.0) g/dL Urine Color Yellow Urine Appearance Clear Urine pH 7.5 (5.0-9.0) Ur Specific Sunbright >= 1.030 H (1.005-1.025) Urine Protein 30 (1+) H (Neg-Trace) mg/dL Urine Glucose (UA) Negative (Negative) mg/dL Urine Ketones 15 (Negative) mg/dL Urine Blood Negative (Negative) Urine Nitrite Negative (Negative) Ur Leukocyte Esterase Trace H (Negative) Urine RBC 6-10 H (0-2) /HPF Urine WBC 0-5 (0-5) /HPF Ur Squamous Epith Cells 0-2 (0-2) /HPF Urine Bacteria None Seen (None Seen) Hyaline Casts 0-2 (0-2) /LPF Influenza Type A (PCR) NEGATIVE (Negative) Influenza Type B (PCR) NEGATIVE (Negative) RSV RNA Qual (PCR) NEGATIVE (Negative) SARS-CoV-2 RNA (RT-PCR) NEGATIVE (Negative) Blood Type A Positive Antibody Screen NEGATIVE 11/24/24 11/24/24 Range/Units 10:58 15:47 WBC 23.4 H (4.8-10.8) X10*3/uL RBC 4.29 L (4.60-5.80) X10*6/uL Hgb 12.6 L (14.0-18.0) g/dl Hct 38.3 L (42.0-52.0) % MCV 89.3 (80.0-98.0) fL MCH 29.4 (27.0-33.0) pg MCHC 32.9 (31.0-36.0) g/dl RDW 15.0 (11.0-16.0) % Plt Count 223 (160-400) X10*3/uL MPV 10.1 (9.4-12.4) fL Immature Gran % (Auto) 0.6 H (0.0-0.4) % Neut % (Auto) 89.7 H (45-73) % Lymph % (Auto) 5.6 L (20-40) % Shannon % (Auto) 4.0 (2-11) % Eos % (Auto) 0.0 (0-4) % Baso % (Auto) 0.1 (0-2) % Lymph # (Auto) 1.3 (1.2-4.9) X10*3/uL Shannon # (Auto) 0.9 (0.1-1.2) X10*3/uL Eos # (Auto) 0.0 (0.0-0.4) X10*3/uL Baso # (Auto) 0.0 (0.0-0.2) X10*3/uL Abs Immat Gran (auto) 0.13 H (0.00-0.03) X10*3/uL Absolute Neuts (auto) 21.0 H (2.0-8.3) x10*3/uL Absolute Nucleated RBC 0.000 (0.0-0.012) X10*3/uL Nucleated RBC % (auto) 0.0 (0.0-0.2) /100WBC Smear Tech's Comments PT (10.9-12.4) SEC INR (0.9-1.1) Sodium (135-145) mmol/L Potassium (3.3-5.1) mmol/L Chloride (96-108) mmol/L Carbon Dioxide (22-29) mmol/L Anion Gap (12-20) BUN (9-16) mg/dL Creatinine (0.5-1.4) mg/dL Estim Creat Clear Calc Estimated GFR Random Glucose (60-115) mg/dL Lactic Acid 4.9 H* (0.5-2.0) mmol/L Calcium (8.4-10.2) mg/dL Magnesium (1.6-2.6) mg/dL Total Bilirubin (0.0-1.0) mg/dL AST (5-37) U/L ALT (0-40) U/L Alkaline Phosphatase (39-117) U/L Total Protein (6.5-8.0) g/dL Albumin (3.5-5.0) g/dL Urine Color Urine Appearance Urine pH (5.0-9.0) Ur Specific Sunbright (1.005-1.025) Urine Protein (Neg-Trace) mg/dL Urine Glucose (UA) (Negative) mg/dL Urine Ketones (Negative) mg/dL Urine Blood (Negative) Urine Nitrite (Negative) Ur Leukocyte Esterase (Negative) Urine RBC (0-2) /HPF Urine WBC (0-5) /HPF Ur Squamous Epith Cells (0-2) /HPF Urine Bacteria (None Seen) Hyaline Casts (0-2) /LPF Influenza Type A (PCR) (Negative) Influenza Type B (PCR) (Negative) RSV RNA Qual (PCR) (Negative) SARS-CoV-2 RNA (RT-PCR) (Negative) Blood Type Antibody Screen Independent Interpretation I performed an independent interpretation of an: CT Scan Interpretation: CT A/P notable for distention of stomach and small bowel without evidence of high grade obstruction, no gastric mass, no evidence of active bleeding. Radiology Impression Discussion of test interpretation with radiology: I have reviewed the radiologist's reading. Radiologist Impression: IMPRESSION: 1. Ground-glass opacification in the lower lobes may be infectious in nature. 2. Distention of the stomach and small bowel through the proximal jejunum without evidence of high-grade mechanical obstruction. Consider gastroenteritis. A gastric mass is not identified. There is no evidence of active bleeding. External Record Review External record reviewed: Inpatient record, Office record and Outpatient record Critical Care Time Critical Care Time Critical Care Time: Yes Total Critical Care Time: 49 Attestation: I have personally provided critical care time exclusive of time spent on separately billable procedures. Time includes review of lab data, radiology results, discussion with consultants, and monitoring for potential decompensation. Intervention performed as documented. Discharge Plan Discharge Clinical Impression: Sepsis, GI bleed Patient Disposition: Still a Patient Prescriptions: No Action sennosides [senna] 8.6 mg Tablet 8.6 mg PO DAILY polyvinyl alcohol [Artificial Tears (polyvin alc)] 1.4 % Drops 1 drp OPHTHALMIC (EYE) TID PRN (Reason: ITCHY EYES) calcium carbonate 500 mg calcium (1,250 mg) Tablet 500 mg PO DAILY melatonin 5 mg Tablet 5 mg PO BEDTIME Metamucil 3.4 gram/5.4 gram Powder 1 tbsp PO DAILY Rx Instructions: mix into at least 8 oz of water or juice before administering doxycycline monohydrate 100 mg Capsule 100 mg PO Q12H Qty: 14 0RF amoxicillin-pot clavulanate 875-125 mg Tablet 875 mg PO Q12H Qty: 14 0RF carbidopa-levodopa 50-200 mg tablet extended release 1 tab PO QID acetaminophen 325 mg tablet 325 mg PO QID PRN (Reason: Pain) Rx Instructions: PAIN OR FEVER Xarelto 15 mg tablet 15 mg PO DAILY potassium chloride 10 mEq tablet extended release 20 meq PO DAILY lactulose 10 gram/15 mL solution 30 ml PO DAILY finasteride 5 mg tablet 5 mg PO DAILY hydrochlorothiazide 25 mg tablet 25 mg PO DAILY tamsulosin 0.4 mg capsule 0.4 mg PO DAILY ropinirole 0.25 mg tablet 0.25 mg PO BEDTIME tramadol 50 mg tablet 50 mg PO BID PRN (Reason: Pain) oxcarbazepine 300 mg tablet 300 mg PO BID Print Language: Nepali
--- NOTE | 2024-11-24 08:26 | ECG_ITS ---
Test Reason : AMS Blood Pressure : */* mmHG Vent. Rate : 110 BPM Atrial Rate : 110 BPM P-R Int : 188 ms QRS Dur : 96 ms QT Int : 308 ms P-R-T Axes : 20 20 11 degrees QTcB Int : 416 ms Sinus tachycardia Incomplete right bundle branch block Borderline ECG When compared with ECG of 27-Feb-2023 08:34, Incomplete right bundle branch block is now Present ST now depressed in Inferior leads Referred By: Inga Hobson Electronically Signed By: JUSTIN ULLOA
[2024-11-24] MEDS: Pantoprazole Sodium 40 MG/10 ML VIAL IVPUSH ×2 (08:50→18:36)
[2024-11-24] MEDS: Piperacillin Sodium/Tazobactam 3.375 GM in 0.9 % Sodium Chloride 50 ML IV (08:50)
[2024-11-24] MEDS: Acetaminophen Supp 650 MG SUPP.RECT PR (08:50)
[2024-11-24] MEDS: Lidocaine HCl 1 % MPF 5 ML VIAL INFILTRATI (08:50)
[2024-11-24 09:02] LABS: Hematocrit 44.3 % (42.0-52.0); Hemoglobin 14.6 g/dl (14.0-18.0); Mean Corpuscular Volume 88.1 fL (80.0-98.0); Mean Platelet Volume 9.8 fL (9.4-12.4); Platelet Count 255 X10*3/uL (160-400); Red Blood Count 5.03 X10*6/uL (4.60-5.80); Red Cell Distribution Width 15.1 % (11.0-16.0); White Blood Count 22.3 X10*3/uL (4.8-10.8)
[2024-11-24 09:04] LABS: INTERNATIONAL NORM RATIO 1.2 (0.9-1.1)
[2024-11-24 09:12] LABS: Appearance Urine Clear; Color Urine Yellow; Glucose Urine UA Negative (Negative); Leukocyte Esterase Urine Trace (Negative); Nitrite Urine Negative (Negative); PH 7.5 (5.0-9.0); Specific Gravity - Urine >= 1.030 (1.005-1.025); UMIC TRIGGER UACC YES; Urine Blood Negative (Negative); Urine Ketones 15 mg/dL (Negative); Urine Protein 30 (1+) mg/dL (Neg-Trace)
[2024-11-24 09:22] LABS: Alanine Aminotransferase 11 U/L (0-40); Albumin Level 4.3 g/dL (3.5-5.0); Alkaline Phosphatase 102 U/L (39-117); Anion Gap 17 (12-20); Aspartate Amino Transferase 19 U/L (5-37); Bilirubin Total 0.6 mg/dL (0.0-1.0); Blood Urea Nitrogen 28 mg/dL (9-16); Calcium 9.2 mg/dL (8.4-10.2); Carbon Dioxide 25 mmol/L (22-29); Chloride 100 mmol/L (96-108); Creatinine Clr Calc Pharmacy 74.5; Estimated Glomerular Filt Rate > 60; Glucose Random 154 mg/dL (60-115); Magnesium 2.1 mg/dL (1.6-2.6); Potassium 3.8 mmol/L (3.3-5.1); Sodium 138 mmol/L (135-145); Total Protein 8.4 g/dL (6.5-8.0)
[2024-11-24 09:23] LABS: Lactic Acid 4.3 mmol/L (0.5-2.0)
[2024-11-24 09:24] LABS: Bacteria Urine None Seen (None Seen); Hyaline Casts Urine 0-2 /LPF (0-2); Squamous Epithelial Cell Urine 0-2 /HPF (0-2); WBC Urine 0-5 /HPF (0-5)
--- NOTE | 2024-11-24 09:26 | PC.NURSE ---
pt noted to desat to 88% on 4L via NC - attempted to place pt on 6L - SPO2 @ 90%. pt transitioned to oxymask at 4L via NC - SPO2 currently at 94%. pt remains in upright position. wob decreased at this time. vital signs otherwise stable aside from being slightly sinus tachycardic on the monitor. plan of care ongoing. call adrian placed within reach.
[2024-11-24] MEDS: LACTATED RINGERS 2139 ML IV (09:27)
--- NOTE | 2024-11-24 09:29 | PC.NURSE ---
Arrived via ems from [facility]. Per ems facility staff reports patient has been throwing up coffee ground emesis since last night. Upon arrival patient spitting up small amounts of coffee ground emesis. Patient alert and oriented to person and place. Warm to touch, rectal temp 102.3 , provider aware and sepsis alert initiated. Denies pain or discomfort. Unable to recall how long he was been throwing up for. Abdomen firm to touch, patient stating ouch when turned. 20g IV placed in right hand and arm. 20g ultrasound line placed in right arm by Dr. Porras. Small amount of bright red blood streaked stool. no active bleeding at this time. Straight cathed to obtain UA specimen.
[2024-11-24 09:37] LABS: Influenza A PCR NEGATIVE (Negative); Influenza B PCR NEGATIVE (Negative); Resp Syncy Virus RNA Qual PCR NEGATIVE (Negative); SARS COV2 PCR INHOUSE NEGATIVE (Negative)
--- NOTE | 2024-11-24 09:50 | PC.NURSE ---
Brother majo updated on patients current condition
[2024-11-24] MEDS: iohexoL 350 MG/ML 100 ML INFUS..BTL IV (10:06)
[2024-11-24 10:57] LABS: Reflex Lactate? Lactic Acid Added
[2024-11-24 11:29] LABS: Lactic Acid 4.9 mmol/L (0.5-2.0)
[2024-11-24] MEDS: Lidocaine HCl Viscous 2 % 15 ML SOLUTION MUCOUS MEM (12:29)
--- NOTE | 2024-11-24 12:30 | PC.NURSE ---
NG tube placed by Dr. Goodwin, patient agitated attempting tp pull out NG tube, soft restraints placed. Immediate output of 200mls dark brown fluid. , provider aware of temp 100.6
[2024-11-24] MEDS: Lactated Ringers 1,000 ML 999 ML IV (13:01)
[2024-11-24 13:03] LABS: Reflex Lactate? Lactic Acid Added
--- NOTE | 2024-11-24 13:06 | PC.NURSE ---
Update given to smitha at [facility], aware that plan is for patient to return after official read fo CT
--- NOTE | 2024-11-24 14:59 | PC.NURSE ---
total output from NG tube 500mls of dark brown fluid, provider aware
--- NOTE | 2024-11-24 15:35 | P.CONGS_ITS ---
History of Present Illness Consult details Consult date: 11/24/24 Narrative: Patient was a 71-year-old male with a plethora of comorbidities intercurrent medical problems including dementia, and on anticoagulation for cardiac issues who presents to the ER vomiting up 1 day prior of coffee-ground emesis. Patient as noted has significant dementia and is unable to give any kind of coherent history. Chart was reviewed and patient evaluated. [place] [id number]. CT scan demonstrates no acute intra-abdominal pathology PMFSH Past Medical History Medical History Parkinson disease Atrial fibrillation External hemorrhoids with complication Vascular dementia Mood disorder Hypokalemia Hypertension BPH (benign prostatic hyperplasia) Social History Social History Household Members: Unknown / Unable to assess Housing: Correction Do you presently have visiting nurse or other home services: No Unable to assess alcohol history related to: Unknown Alcohol intake: former Patient Tobacco Use Status: Tobacco use Unknown service: No Meds Allergies Allergy/AdvReac Type Severity Reaction Status Date / Time No Known Allergies Allergy Verified 11/24/24 08:36 Home Medications ?Medication ?Instructions ?Recorded ?Confirmed ?Last Taken ?Type acetaminophen 325 mg tablet 325 mg PO Q6H PRN FEVER/PAIN 07/11/22 11/24/24 Unknown History carbidopa ER 50 mg-levodopa 200 mg 1 tab PO QID 07/11/22 11/24/24 Unknown History tablet,extended release finasteride 5 mg tablet 5 mg PO DAILY 07/11/22 11/24/24 Unknown History hydrochlorothiazide 25 mg tablet 25 mg PO DAILY 07/11/22 11/24/24 Unknown History lactulose 10 gram/15 mL oral 30 ml PO DAILY 07/11/22 11/24/24 Unknown History solution oxcarbazepine 300 mg tablet 300 mg PO BID 07/11/22 11/24/24 Unknown History potassium chloride 10 mEq 20 meq PO DAILY 07/11/22 11/24/24 Unknown History tablet,extended release rivaroxaban 15 mg tablet (Xarelto) 15 mg PO DAILY 07/11/22 11/24/24 Unknown History ropinirole 0.25 mg tablet 0.25 mg PO BEDTIME 07/11/22 11/24/24 Unknown History tamsulosin 0.4 mg capsule 0.4 mg PO BEDTIME 07/11/22 11/24/24 Unknown History tramadol 50 mg tablet 50 mg PO TID Pain 07/11/22 11/24/24 Unknown History calcium carbonate 500 mg PO DAILY 02/27/23 11/24/24 Unknown History melatonin 5 mg tablet 5 mg PO BEDTIME 02/27/23 11/24/24 Unknown History psyllium husk 3.4 gram/5.4 gram 1 tbsp PO DAILY 02/27/23 11/24/24 Unknown History oral powder (Metamucil) sennosides 8.6 mg tablet (senna) 8.6 mg PO Q24H PRN Constipation 02/27/23 11/24/24 Unknown History bisacodyl 10 mg rectal suppository 10 mg [place] DAILY PRN Constipation 11/24/24 11/24/24 Unknown History docusate sodium 100 mg capsule 100 mg PO BID 11/24/24 11/24/24 Unknown History (Colace) hydrocortisone 1 % topical cream 1 appl topical DAILY 11/24/24 11/24/24 Unknown History (Preparation H Hydrocortisone) mirtazapine 15 mg tablet 15 mg PO DAILY 11/24/24 11/24/24 Unknown History naloxone 4 mg/actuation nasal 4 mg intranasal Q3M PRN OVERDOSE 11/24/24 11/24/24 Unknown History spray (Narcan) sodium phosphates 19 gram-7 118 ml [place] Q24H PRN Constipation 11/24/24 11/24/24 Unknown History gram/118 mL enema (Fleet Enema) Physical Exam 2 Vital Signs: Vital Signs: Last Vital Signs Temp 100.4 F 11/24/24 12:59 Pulse 89 11/24/24 13:44 Resp 18 11/24/24 13:44 BP 115/58 L 11/24/24 13:44 Pulse Ox 96 11/24/24 13:44 O2 Del Method Room Air 11/24/24 13:44 O2 Flow Rate 4 11/24/24 09:25 BMI result Body Mass Index 22.6 Const: Other: Very disoriented , confused patient in no acute distress. NG tube in place with old blood in tubing. GI: Other: With respirations, and the patient being distracted, abdomen is soft. When he becomes anxious, were abdomen becomes hard/rigid but this is not an acute surgical abdomen. Results Labs 11/25/24 04:42 03/17/25 04:42 Labs: Abnormal lab results 11/24/24 11/24/24 11/24/24 Range/Units 08:48 08:49 09:06 WBC 22.3 H (4.8-10.8) X10*3/uL Immature Gran % (Auto) 0.7 H (0.0-0.4) % Neut % (Auto) 94.1 H (45-73) % Lymph % (Auto) 1.5 L (20-40) % Lymph # (Auto) 0.3 L (1.2-4.9) X10*3/uL Abs Immat Gran (auto) 0.15 H (0.00-0.03) X10*3/uL Absolute Neuts (auto) 21.0 H (2.0-8.3) x10*3/uL PT 14.0 H (10.9-12.4) SEC INR 1.2 H (0.9-1.1) BUN 28 H (9-16) mg/dL Random Glucose 154 H (60-115) mg/dL Lactic Acid 4.3 H* (0.5-2.0) mmol/L Total Protein 8.4 H (6.5-8.0) g/dL Ur Specific [place] >= 1.030 H (1.005-1.025) Urine Protein 30 (1+) H (Neg-Trace) mg/dL Ur Leukocyte Esterase Trace H (Negative) Urine RBC 6-10 H (0-2) /HPF 11/24/24 Range/Units 10:58 WBC (4.8-10.8) X10*3/uL Immature Gran % (Auto) (0.0-0.4) % Neut % (Auto) (45-73) % Lymph % (Auto) (20-40) % Lymph # (Auto) (1.2-4.9) X10*3/uL Abs Immat Gran (auto) (0.00-0.03) X10*3/uL Absolute Neuts (auto) (2.0-8.3) x10*3/uL PT (10.9-12.4) SEC INR (0.9-1.1) BUN (9-16) mg/dL Random Glucose (60-115) mg/dL Lactic Acid 4.9 H* (0.5-2.0) mmol/L Total Protein (6.5-8.0) g/dL Ur Specific [place] (1.005-1.025) Urine Protein (Neg-Trace) mg/dL Ur Leukocyte Esterase (Negative) Urine RBC (0-2) /HPF Short CBC 11/24/24 Range/Units 08:49 WBC 22.3 H (4.8-10.8) X10*3/uL Hgb 14.6 D (14.0-18.0) g/dl Hct 44.3 D (42.0-52.0) % Plt Count 255 (160-400) X10*3/uL BMP 11/24/24 08:48 Sodium 138 Potassium 3.8 Chloride 100 Carbon Dioxide 25 BUN 28 H Creatinine 0.89 Calcium 9.2 Liver Function 11/24/24 Range/Units 08:48 Total Bilirubin 0.6 (0.0-1.0) mg/dL AST 19 (5-37) U/L ALT 11 (0-40) U/L Alkaline Phosphatase 102 (39-117) U/L Albumin 4.3 (3.5-5.0) g/dL Urine 11/24/24 Range/Units 09:06 Urine Color Yellow Urine Appearance Clear Urine pH 7.5 (5.0-9.0) Ur Specific [place] >= 1.030 H (1.005-1.025) Urine Protein 30 (1+) H (Neg-Trace) mg/dL Urine Glucose (UA) Negative (Negative) mg/dL All other labs normal. Assessment and Plan (1) Upper GI bleed: Status: Acute Plan Upper GI bleed and the patient with advanced dementia, and on anticoagulation. At present, no acute surgical issues. Consider GI consultation, holding anticoagulation and possibly reversing this with appropriate ended 0. Serial H&H and exams. Procedures Date of Service Date of Service: 11/25/24
[2024-11-24] MEDS: LORazepam 2 MG/ML VIAL 1 MG IVPUSH (15:46)
--- NOTE | 2024-11-24 15:50 | PC.NURSE ---
Despite being in soft restriant patient bent head and removed ng tube. Hospitalist at bedside and aware stating to replace ng tube. New ng tube placed. Output in canister 600mls at this time, ed provider aware
[2024-11-24 16:25] LABS: Basophils Percent Auto 0.1 % (0-2); Hematocrit 38.3 % (42.0-52.0); Hemoglobin 12.6 g/dl (14.0-18.0); Imm Gran Abs Auto 0.13 X10*3/uL (0.00-0.03); Imm Gran Pct Auto 0.6 % (0.0-0.4); Lymphocytes Absolute Auto 1.3 X10*3/uL (1.2-4.9); Lymphocytes Percent Auto 5.6 % (20-40); MANUAL DIFF FLAG SCAN; Mean Corpuscular HGB Conc 32.9 g/dl (31.0-36.0); Mean Corpuscular Hemoglobin 29.4 pg (27.0-33.0); Mean Corpuscular Volume 89.3 fL (80.0-98.0); Mean Platelet Volume 10.1 fL (9.4-12.4); Monocytes Absolute Auto 0.9 X10*3/uL (0.1-1.2); Neutrophils Percent Auto 89.7 % (45-73); Platelet Count 223 X10*3/uL (160-400); Red Blood Count 4.29 X10*6/uL (4.60-5.80); SCAN SMEAR FLAG 1; White Blood Count 23.4 X10*3/uL (4.8-10.8)
--- NOTE | 2024-11-24 17:06 | PC.NURSE ---
Resting comfortably, NG tube remains in place, vss, output from NG tube remains at 600mls dark brown fluid
[2024-11-24 17:07] LABS: SLIDE REVIEW MANUAL DIFF
[2024-11-24 17:17] LABS: Band Neutrophils Percent 8 % (3-5); Lymphocytes Absolute Manual 0.4 X10*3/uL (1.2-4.9); Lymphocytes Percent Manual 2 % (20-40); Monocytes Absolute Manual 0.7 X10*3/uL (0.1-1.2); Monocytes Percent Manual 3 % (2-11); Neutrophils Absolute Manual 21.2 X10*3/uL (2.0-8.3); Neutrophils Percent Manual 87 % (45-73)
[2024-11-24 17:18] LABS: Platelet Estimate NORMAL (NORMAL); Platelet Morphology Comment NORMAL; RBC Morphology NORMAL
--- NOTE | 2024-11-24 17:29 | PC.NURSE ---
Brother aware that plan is to admit patient
--- NOTE | 2024-11-24 17:54 | P.HPHOSP_ITS ---
History of Present Illness Date of Service: 11/24/24 Attending physician on admission: Harpreet Keller Chief Complaint: hemetemesis 74-year-old male with history of vascular dementia, history of CVA with left- sided hemiparesis, Parkinson's disease, unspecified atrial fibrillation anticoagulated with Xarelto,hypertension, BPH, and recurrent aspiration pneumonia presented to the ED from [facility] where he resides due to coffee-ground emesis ongoing since last night with patient reported diffuse abdominal pain. Further review of system unable to be obtained secondary to patient's mental status related to vascular dementia. On arrival to the unit, patient was febrile to 102.3 and tachycardic to 114. He was initially hypoxic to 88% and was placed on 2 L supplemental O2 and was subsequently weaned now maintaining oximetry 95%. On arrival, leukocytosis 22.3, H/H 14.6/44.3. Repeat WBC 23.4, H/H 12.6/38.3 after 600ml black emesis collected via NG tube placed at bedside. Creatinine normal, BUN elevated at 28. Electrolyte levels normal. Initial 4.3 with repeat of 4.9 improved to 2.0 following IV fluids. Hepatic function within normal limits. Urinalysis not indicative of infection. Negative for influenza, RSV, COVID-19. CTA of the abdomen/pelvis shows some ground-glass opacification in the lower lobes possibly infectious. There is also distention of the stomach and small bowel throughout the proximal jejunum but no evidence of high-grade mechanical obstruction, consider gastroenteritis. No evidence of active bleeding. He was evaluated by General surgery who did not feel that there was any surgical issues present. In the ED, has received 3.1 L of IV LR, ppi, Tylenol, lorazepam, and Zosyn. Review of Systems 2 Review of Systems: Yes Unobtainable due to mental status [facility] Medical History Parkinson disease Atrial fibrillation External hemorrhoids with complication Vascular dementia Mood disorder Hypokalemia Hypertension BPH (benign prostatic hyperplasia) Social History Household Members: None Housing: Jail Do you presently have visiting nurse or other home services: No Unable to assess alcohol history related to: Unknown Alcohol intake: former Patient Tobacco Use Status: Tobacco use Unknown Smoked in Last 30 Days: No Use of substances other than those prescribed or required for medical reasons: No Advance Directives: No Advance Directives Information Provided: No Do you have a plan to hurt others: No Plan service: No Meds Allergies Allergy/AdvReac Type Severity Reaction Status Date / Time No Known Allergies Allergy Verified 11/24/24 08:36 Home Medications ?Medication ?Instructions ?Recorded ?Confirmed ?Last Taken ?Type acetaminophen 325 mg tablet 325 mg PO QID PRN Pain 07/11/22 02/27/23 Unknown History carbidopa ER 50 mg-levodopa 200 mg 1 tab PO QID 07/11/22 02/27/23 Unknown History tablet,extended release finasteride 5 mg tablet 5 mg PO DAILY 07/11/22 02/27/23 Unknown History hydrochlorothiazide 25 mg tablet 25 mg PO DAILY 07/11/22 02/27/23 Unknown History lactulose 10 gram/15 mL oral 30 ml PO DAILY 07/11/22 02/27/23 Unknown History solution oxcarbazepine 300 mg tablet 300 mg PO BID 07/11/22 02/27/23 Unknown History potassium chloride 10 mEq 20 meq PO DAILY 07/11/22 02/27/23 Unknown History tablet,extended release rivaroxaban 15 mg tablet (Xarelto) 15 mg PO DAILY 07/11/22 02/27/23 Unknown History ropinirole 0.25 mg tablet 0.25 mg PO BEDTIME 07/11/22 02/27/23 Unknown History tamsulosin 0.4 mg capsule 0.4 mg PO DAILY 07/11/22 02/27/23 Unknown History tramadol 50 mg tablet 50 mg PO BID PRN Pain 07/11/22 02/27/23 Unknown History calcium carbonate 500 mg PO DAILY 02/27/23 02/27/23 Unknown History melatonin 5 mg tablet 5 mg PO BEDTIME 02/27/23 02/27/23 Unknown History polyvinyl alcohol 1.4 % eye drops 1 drp ophthalmic (eye) TID PRN 02/27/23 02/27/23 Unknown History (Artificial Tears (polyvinyl ITCHY EYES alcohol)) psyllium husk 3.4 gram/5.4 gram 1 tbsp PO DAILY 02/27/23 02/27/23 Unknown History oral powder (Metamucil) sennosides 8.6 mg tablet (senna) 8.6 mg PO DAILY 02/27/23 02/27/23 Unknown History Physical Exam 2 Vital Signs and Narrative: Vital Signs: Last Vital Signs Temp 99.5 F 11/24/24 16:00 Pulse 86 11/24/24 16:00 Resp 18 11/24/24 16:00 BP 111/46 L 11/24/24 16:00 Pulse Ox 95 11/24/24 16:00 O2 Del Method Room Air 11/24/24 16:00 O2 Flow Rate 4 11/24/24 09:25 BMI result Body Mass Index 22.6 Constitutional - Awake and Alert, No apparent distress. Soft restraints Eyes - PERRLA, EOMI Cardiovascular - S1S2, RRR, No edema Respiratory - Normal lung expansion, Normal respiratory effort, No respiratory distress, b/l crackles Gastrointestinal - bilateral lower abd ttp with guarding. ND; +BS; No rebound Extremities - no calf tenderness bilaterally, no swelling Skin - Warm/Dry Neurological - Alert & oriented to self Results Labs 11/24/24 15:47 11/24/24 08:48 Labs: Laboratory Results - last 24 hr 11/24/24 11/24/24 11/24/24 08:48 08:49 09:06 MCV 88.1 MCH 29.0 MCHC 33.0 RDW 15.1 Plt Count 255 MPV 9.8 Immature Gran % (Auto) Cancelled Neut % (Auto) Cancelled Lymph % (Auto) Cancelled [place] % (Auto) Cancelled Eos % (Auto) Cancelled Baso % (Auto) Cancelled Lymph # (Auto) Cancelled [place] # (Auto) Cancelled Eos # (Auto) Cancelled Baso # (Auto) Cancelled Abs Immat Gran (auto) Cancelled Absolute Neuts (auto) Cancelled Absolute Nucleated RBC 0.000 Nucleated RBC % (auto) 0.0 Neutrophils % (Manual) 87 H Band Neutrophils % 8 H Lymphocytes % (Manual) 2 L Monocytes % (Manual) 3 Abs Neuts (Manual) 21.2 H Lymphocytes # (Manual) 0.4 L Monocytes # (Manual) 0.7 Platelet Estimate NORMAL Plt Morphology Comment NORMAL RBC Morphology NORMAL Smear Tech's Comments MANUAL DIFF PT 14.0 H INR 1.2 H Anion Gap 17 Estim Creat Clear Calc 74.5 Estimated GFR > 60 Random Glucose 154 H Lactic Acid 4.3 H* Lactic Acid F/U @ 2Hr Calcium 9.2 Magnesium 2.1 Total Bilirubin 0.6 AST 19 ALT 11 Alkaline Phosphatase 102 Total Protein 8.4 H Albumin 4.3 Urine Color Yellow Urine Appearance Clear Urine pH 7.5 Ur Specific [place] >= 1.030 H Urine Protein 30 (1+) H Urine Glucose (UA) Negative Urine Ketones 15 Urine Blood Negative Urine Nitrite Negative Ur Leukocyte Esterase Trace H Urine RBC 6-10 H Urine WBC 0-5 Ur Squamous Epith Cells 0-2 Urine Bacteria None Seen Hyaline Casts 0-2 Influenza Type A (PCR) NEGATIVE Influenza Type B (PCR) NEGATIVE RSV RNA Qual (PCR) NEGATIVE SARS-CoV-2 RNA (RT-PCR) NEGATIVE Blood Type A Positive Antibody Screen NEGATIVE 11/24/24 11/24/24 11/24/24 10:58 15:47 17:01 MCV 89.3 MCH 29.4 MCHC 32.9 RDW 15.0 Plt Count 223 MPV 10.1 Immature Gran % (Auto) 0.6 H Neut % (Auto) 89.7 H Lymph % (Auto) 5.6 L [place] % (Auto) 4.0 Eos % (Auto) 0.0 Baso % (Auto) 0.1 Lymph # (Auto) 1.3 [place] # (Auto) 0.9 Eos # (Auto) 0.0 Baso # (Auto) 0.0 Abs Immat Gran (auto) 0.13 H Absolute Neuts (auto) 21.0 H Absolute Nucleated RBC 0.000 Nucleated RBC % (auto) 0.0 Neutrophils % (Manual) Band Neutrophils % Lymphocytes % (Manual) Monocytes % (Manual) Abs Neuts (Manual) Lymphocytes # (Manual) Monocytes # (Manual) Platelet Estimate Plt Morphology Comment RBC Morphology Smear Tech's Comments PT INR Anion Gap Estim Creat Clear Calc Estimated GFR Random Glucose Lactic Acid 4.9 H* Lactic Acid F/U @ 2Hr 2.0 Calcium Magnesium Total Bilirubin AST ALT Alkaline Phosphatase Total Protein Albumin Urine Color Urine Appearance Urine pH Ur Specific [place] Urine Protein Urine Glucose (UA) Urine Ketones Urine Blood Urine Nitrite Ur Leukocyte Esterase Urine RBC Urine WBC Ur Squamous Epith Cells Urine Bacteria Hyaline Casts Influenza Type A (PCR) Influenza Type B (PCR) RSV RNA Qual (PCR) SARS-CoV-2 RNA (RT-PCR) Blood Type Antibody Screen Assessment and Plan (1) GI bleed: Status: Acute (2) Sepsis: Status: Acute (3) Upper GI bleed: Status: Acute Plan 74-year-old male with history of vascular dementia, history of CVA with left- sided hemiparesis, Parkinson's disease, unspecified atrial fibrillation anticoagulated with Xarelto,hypertension, BPH, and recurrent pneumonia presented to the ED from [facility] where he resides admitted for further management of acute upper GI bleed and aspiration pneumonia # acute upper GI bleed with acute blood loss anemia -CT abdomen/pelvis with contrast negative for any active bleeding -continue NG tube. Keep NPO -H/H 14.6/44.3% --> 12.6/38.3%. Repeat H/H at 22:00. Follow a.m. -continue IVF -IV PPI -antiemetics p.r.n. -hold anticoagulation -GI consult -monitor on telemetry # acute aspiration pneumonia-likely secondary to vomiting with severe sepsis -CT abdomen/pelvis does show evidence of possible infiltrates in the bilateral lower lobes though chest x-ray is negative -leukocytosis likely multifactorial related to vomiting as well as infection. 8% bands. Febrile to 102.3. Tachycardic. Lactic acidosis likely multifactorial related to hypoperfusion from GI bleed as well as sepsis. Initial lactic acid 4.3-->4.9-->2.0. No shock -IV Zosyn -keep NPO for now. Once diet advances, PSYCHOLOGIST ENGINEERING evaluation # vascular dementia -mentation baseline. Maintain sleep wake cycle # Parkinson's disease -continue Sinemet # BPH -continue Proscar, Flomax # paroxysmal atrial fibrillation -hold Xarelto in the setting of above # hypertension -hold HCTZ DVT prophylaxis-SCPs due gi bleed Full code Patient requires inpatient stay at least 2 midnights due to upper GI bleed with hematemesis and acute blood loss anemia which will require expert consultation and probable EGD with close monitoring of hemodynamics and blood counts Quality Stroke Does the patient have a stroke diagnosis?: No VTE Prior VTE?: No VTE Risk Level:: Medical - moderate - high VTE Device Contraindication: N/A - Device Ordered VTE Drug Contraindication: Treatment Not Indicated
--- NOTE | 2024-11-24 18:23 | PC.NURSE ---
output from NG 700mls dark brown fluid , patient sleeping, vss
[2024-11-24] MEDS: Lactated Ringers 1,000 ML 80 ML IVCONT (18:35)
[2024-11-24] MEDS: Piperacillin Sodium/Tazobactam 4.5 GM in 0.9 % Sodium Chloride 100 ML IV (18:36)
--- NOTE | 2024-11-24 19:22 | PC.NURSE ---
assumed care of patient at this time. Report received from Laura TIJERINA. pt remains in soft restraints as the NG tube is present and patient previously pulled out twice. soft restraint form being filled out. Lr running through iv. pt resting comfortably, in no apparent distress, on cardiac care nurse and within view of nurses station. call adrian within reach, plan of care continues.
--- NOTE | 2024-11-24 19:33 | PHA.MEDREC ---
Pharmacy Consult ? Medication Reconciliation Pharmacy has completed the medication reconciliation. List obtained from Olga williamson [place]
[2024-11-24 22:31] LABS: Hematocrit 36.3 % (42.0-52.0); Hemoglobin 11.7 g/dl (14.0-18.0)
--- NOTE | 2024-11-24 23:22 | PC.NURSE ---
pt remains in soft restraints while NG tube is in place. resting comfortably, respirations even and unlabored. pt is on bioinformatics engineer and within view of nurses station. plan of care ongoing.
[2024-11-25] VITALS (15 sets, daily range): BP systolic 114–156; BP diastolic 46–85; PULSE 64–89; RESP 16–20; TEMP 36.6–37.3; O2SAT 97–100; BMI 20.5
--- NOTE | 2024-11-25 00:36 | MHC.EDTECH ---
This tech took over care of pt at 0000,rounds completed,vitas taken,pt has a continuous rectal probe in place temp 98.1, patient has a [place] cath, draining at this time,patient is resting quietly, pt is in soft restraints due to pt removing NG Tube X2, pt appears comfortable lights dimmed,call adrian in reach
[2024-11-25] MEDS: Piperacillin Sodium/Tazobactam 4.5 GM in 0.9 % Sodium Chloride 100 ML IV ×4 (01:18→20:35)
[2024-11-25 04:48] LABS: MANUAL DIFF FLAG NO
[2024-11-25 04:49] LABS: Basophils Percent Auto 0.2 % (0-2); Eosinophils Percent Auto 0.2 % (0-4); Hematocrit 35.3 % (42.0-52.0); Hemoglobin 11.2 g/dl (14.0-18.0); Imm Gran Abs Auto 0.06 X10*3/uL (0.00-0.03); Imm Gran Pct Auto 0.5 % (0.0-0.4); Lymphocytes Absolute Auto 1.5 X10*3/uL (1.2-4.9); Lymphocytes Percent Auto 12.4 % (20-40); Mean Corpuscular HGB Conc 31.7 g/dl (31.0-36.0); Mean Corpuscular Hemoglobin 29.2 pg (27.0-33.0); Mean Corpuscular Volume 92.2 fL (80.0-98.0); Mean Platelet Volume 9.7 fL (9.4-12.4); Monocytes Absolute Auto 0.9 X10*3/uL (0.1-1.2); Monocytes Percent Auto 6.9 % (2-11); Neutrophils Absolute Auto 9.8 x10*3/uL (2.0-8.3); Neutrophils Percent Auto 79.8 % (45-73); Platelet Count 161 X10*3/uL (160-400); Red Blood Count 3.83 X10*6/uL (4.60-5.80); Red Cell Distribution Width 15.4 % (11.0-16.0); White Blood Count 12.3 X10*3/uL (4.8-10.8)
[2024-11-25 05:03] LABS: Anion Gap 11 (12-20); Blood Urea Nitrogen 18 mg/dL (9-16); Calcium 8.5 mg/dL (8.4-10.2); Carbon Dioxide 25 mmol/L (22-29); Chloride 110 mmol/L (96-108); Creatinine Clr Calc Pharmacy 100.5; Estimated Glomerular Filt Rate > 60; Glucose Random 86 mg/dL (60-115); Potassium 3.3 mmol/L (3.3-5.1); Sodium 143 mmol/L (135-145)
[2024-11-25] MEDS: Pantoprazole Sodium 40 MG/10 ML VIAL IVPUSH ×2 (06:32→16:22)
[2024-11-25] MEDS: Lactated Ringers 1,000 ML 80 ML IVCONT ×2 (06:35→18:27)
--- NOTE | 2024-11-25 07:26 | P.PNIM_ITS ---
Subjective Subjective Date of Service: 11/25/24 Interval History: f/u on upper gib, has NGT, no signficant shift in H/H Pt has been confused, pulling tube and had to be restrained Physical Exam 2 Vital Signs: Vital Signs: Last Vital Signs Temp 98.4 F 11/25/24 07:17 Pulse 72 11/25/24 07:17 Resp 19 11/25/24 07:17 BP 136/64 11/25/24 07:17 Pulse Ox 98 11/25/24 07:17 O2 Del Method Room Air 11/25/24 07:17 O2 Flow Rate 4 11/24/24 09:25 BMI result Body Mass Index 22.6 Const: Other: Constitutional - Awake and Alert, No apparent distress. Soft restraints Eyes - PERRLA, EOMI Cardiovascular - S1S2, RRR, No edema Respiratory - Normal lung expansion, Normal respiratory effort, No respiratory distress, b/l crackles Gastrointestinal - nt, with guarding. ND; +BS; No rebound Extremities - no calf tenderness bilaterally, no swelling Skin - Warm/Dry Neurological - Alert & oriented to self only Objective Data Active Medications Acetaminophen (Acetaminophen 325 Mg Tablet) 650 mg PO Q6H PRN PRN Reason: Pain, Mild 1-3,fever,headache Calcium Carbonate (Calcium Carbonate 750 Mg Tab.Chew) 750 mg PO Q4H PRN PRN Reason: Heartburn Lactated Ringer's (Lr) 1,000 mls @ 80 mls/hr IVCONT .[id number] [facility] Last Admin: 11/25/24 06:35 Dose: 80 mls/hr Documented By: CYNTHIA Piperacillin Sod/Tazobactam (Sod 4.5 gm/ Sodium Chloride) 100 mls @ 200 mls/hr IV Q6H [facility] Last Infusion: 11/25/24 01:56 Dose: Infused Documented By: CYNTHIA Magnesium Hydroxide (Milk Of Magnesia 30 Ml Oral.Susp) 30 ml PO DAILY PRN PRN Reason: Constipation Melatonin (Melatonin 3 Mg Tablet) 6 mg PO BEDTIME PRN PRN Reason: Insomnia Ondansetron HCl (Ondansetron Hcl 4 Mg/2 Ml Vial) 4 mg IVPUSH Q8H PRN PRN Reason: Nausea and Vomiting Pantoprazole Sodium (Pantoprazole Sodium 40 Mg/10 Ml Vial) 40 mg IVPUSH BID@0612,4750 [facility] Last Admin: 11/25/24 06:32 Dose: 40 mg Documented By: CYNTHIA Sodium Chloride (0.9 % Sodium Chloride Flush 3 Ml Syringe) 3 ml IVFLUSH QSHIFT [facility] Last Admin: 11/25/24 01:15 Dose: Not Given Documented By: CYNTHIA Non-Admin Reason: IV Running Labs 11/25/24 04:42 11/25/24 04:42 Labs: Laboratory Results - last 24 hr 11/24/24 11/24/24 11/24/24 08:48 08:49 09:06 MCV 88.1 MCH 29.0 MCHC 33.0 RDW 15.1 Plt Count 255 MPV 9.8 Immature Gran % (Auto) Cancelled Neut % (Auto) Cancelled Lymph % (Auto) Cancelled [place] % (Auto) Cancelled Eos % (Auto) Cancelled Baso % (Auto) Cancelled Lymph # (Auto) Cancelled [place] # (Auto) Cancelled Eos # (Auto) Cancelled Baso # (Auto) Cancelled Abs Immat Gran (auto) Cancelled Absolute Neuts (auto) Cancelled Absolute Nucleated RBC 0.000 Nucleated RBC % (auto) 0.0 Neutrophils % (Manual) 87 H Band Neutrophils % 8 H Lymphocytes % (Manual) 2 L Monocytes % (Manual) 3 Abs Neuts (Manual) 21.2 H Lymphocytes # (Manual) 0.4 L Monocytes # (Manual) 0.7 Platelet Estimate NORMAL Plt Morphology Comment NORMAL RBC Morphology NORMAL Smear Tech's Comments MANUAL DIFF PT 14.0 H INR 1.2 H Anion Gap 17 Estim Creat Clear Calc 74.5 Estimated GFR > 60 Random Glucose 154 H Lactic Acid 4.3 H* Lactic Acid F/U @ 2Hr Calcium 9.2 Magnesium 2.1 Total Bilirubin 0.6 AST 19 ALT 11 Alkaline Phosphatase 102 Total Protein 8.4 H Albumin 4.3 Urine Color Yellow Urine Appearance Clear Urine pH 7.5 Ur Specific [place] >= 1.030 H Urine Protein 30 (1+) H Urine Glucose (UA) Negative Urine Ketones 15 Urine Blood Negative Urine Nitrite Negative Ur Leukocyte Esterase Trace H Urine RBC 6-10 H Urine WBC 0-5 Ur Squamous Epith Cells 0-2 Urine Bacteria None Seen Hyaline Casts 0-2 Influenza Type A (PCR) NEGATIVE Influenza Type B (PCR) NEGATIVE RSV RNA Qual (PCR) NEGATIVE SARS-CoV-2 RNA (RT-PCR) NEGATIVE Blood Type A Positive Antibody Screen NEGATIVE 11/24/24 11/24/24 11/24/24 10:58 15:47 17:01 MCV 89.3 MCH 29.4 MCHC 32.9 RDW 15.0 Plt Count 223 MPV 10.1 Immature Gran % (Auto) 0.6 H Neut % (Auto) 89.7 H Lymph % (Auto) 5.6 L [place] % (Auto) 4.0 Eos % (Auto) 0.0 Baso % (Auto) 0.1 Lymph # (Auto) 1.3 [place] # (Auto) 0.9 Eos # (Auto) 0.0 Baso # (Auto) 0.0 Abs Immat Gran (auto) 0.13 H Absolute Neuts (auto) 21.0 H Absolute Nucleated RBC 0.000 Nucleated RBC % (auto) 0.0 Neutrophils % (Manual) Band Neutrophils % Lymphocytes % (Manual) Monocytes % (Manual) Abs Neuts (Manual) Lymphocytes # (Manual) Monocytes # (Manual) Platelet Estimate Plt Morphology Comment RBC Morphology Smear Tech's Comments PT INR Anion Gap Estim Creat Clear Calc Estimated GFR Random Glucose Lactic Acid 4.9 H* Lactic Acid F/U @ 2Hr 2.0 Calcium Magnesium Total Bilirubin AST ALT Alkaline Phosphatase Total Protein Albumin Urine Color Urine Appearance Urine pH Ur Specific [place] Urine Protein Urine Glucose (UA) Urine Ketones Urine Blood Urine Nitrite Ur Leukocyte Esterase Urine RBC Urine WBC Ur Squamous Epith Cells Urine Bacteria Hyaline Casts Influenza Type A (PCR) Influenza Type B (PCR) RSV RNA Qual (PCR) SARS-CoV-2 RNA (RT-PCR) Blood Type Antibody Screen 11/25/24 04:42 MCV 92.2 MCH 29.2 MCHC 31.7 RDW 15.4 Plt Count 161 D MPV 9.7 Immature Gran % (Auto) 0.5 H Neut % (Auto) 79.8 H Lymph % (Auto) 12.4 L [place] % (Auto) 6.9 Eos % (Auto) 0.2 Baso % (Auto) 0.2 Lymph # (Auto) 1.5 [place] # (Auto) 0.9 Eos # (Auto) 0.0 Baso # (Auto) 0.0 Abs Immat Gran (auto) 0.06 H Absolute Neuts (auto) 9.8 H Absolute Nucleated RBC 0.000 Nucleated RBC % (auto) 0.0 Neutrophils % (Manual) Band Neutrophils % Lymphocytes % (Manual) Monocytes % (Manual) Abs Neuts (Manual) Lymphocytes # (Manual) Monocytes # (Manual) Platelet Estimate Plt Morphology Comment RBC Morphology Smear Tech's Comments PT INR Anion Gap 11 L Estim Creat Clear Calc 100.5 Estimated GFR > 60 Random Glucose 86 Lactic Acid Lactic Acid F/U @ 2Hr Calcium 8.5 D Magnesium Total Bilirubin AST ALT Alkaline Phosphatase Total Protein Albumin Urine Color Urine Appearance Urine pH Ur Specific [place] Urine Protein Urine Glucose (UA) Urine Ketones Urine Blood Urine Nitrite Ur Leukocyte Esterase Urine RBC Urine WBC Ur Squamous Epith Cells Urine Bacteria Hyaline Casts Influenza Type A (PCR) Influenza Type B (PCR) RSV RNA Qual (PCR) SARS-CoV-2 RNA (RT-PCR) Blood Type Antibody Screen Assessment and Plan (1) Upper GI bleed: Status: Acute Plan 74-year-old male with history of vascular dementia, history of CVA with left- sided hemiparesis, Parkinson's disease, unspecified atrial fibrillation anticoagulated with Xarelto,hypertension, BPH, and recurrent pneumonia presented to the ED from [facility] admitted for further management of acute upper GI bleed and aspiration pneumonia acute upper GI bleed with acute blood loss anemia -CT abdomen/pelvis with contrast negative for any active bleeding -continue NG tube. Keep NPO -H/H 14.6/44.3% --> 12.6/38.3%-->11 -continue IVF -IV PPI -antiemetics p.r.n. -hold anticoagulation -GI to do EGD today acute aspiration pneumonia-likely secondary to vomiting with severe sepsis, sepsis resolved, wbc 23--> 12 continue Zosyn and ultimately change to Augmentin for 7 days total NPO and swallow eval before starting diet vascular dementia mentation baseline. Maintain sleep wake cycle Parkinson's disease continue Sinemet BPH continue Proscar, Flomax paroxysmal atrial fibrillation hold Xarelto in the setting of above hypertension hold HCTZ Anxiety : ativan parn DVT prophylaxis-SCPs due gi bleed Full code Patient requires inpatient stay at least 2 midnights due to upper GI bleed with hematemesis and acute blood loss anemia which will require expert consultation and probable EGD with close monitoring of hemodynamics and blood counts Quality Stroke Does the patient have a stroke diagnosis?: No VTE Prior VTE?: No VTE Risk Level:: Medical - moderate - high VTE Device Contraindication: N/A - Device Ordered VTE Drug Contraindication: Treatment Not Indicated
[2024-11-25] MEDS: 0.9 % Sodium Chloride Flush 3 ML SYRINGE IVFLUSH ×3 (07:28→20:37)
--- NOTE | 2024-11-25 08:25 | PC.NURSE ---
Pt intermittently alert and restless, rests with redirection, pt very confused. Medical restraints remain in place. NSR on bedside monitor. Pt was cleaned up this morning. NG remains in place, [place] cath on and draining. IV fluids infusing per MAR. No stool noted. Minimal output of clear/yellow liquid from NG tube. Plan of care ongoing, GI at bedside this morning reporting upper endoscopy later today
--- NOTE | 2024-11-25 08:33 | MHC.SHP ---
Pre-Procedural Eval Section A - 24 Hr Update-Section A only Date of Service: 11/25/24 The patient is an INPATIENT: Yes Changes since office visit: No Cold of Flu in the past 2 weeks, No New Medical Problems, No Changes in Medication and No Patient answered all questions The patient has been examined within 24 hours of the surgical procedure. The History & Physical has been completed within 30 days and I have reviewed it.: Yes Section B - Complete if H&P > 30 days Chief Complaint: Bleed, Aspiration pneumonia Allergies: Allergies Allergy/AdvReac Type Severity Reaction Status Date / Time No Known Allergies Allergy Verified 11/24/24 08:36 Plan I have reviewed the history and physical and performed a pertinent physical examination on my patient. No changes have occurred unless specified. Time Spent With Patient Time: Total time managing care of this patient today ____ minutes.
--- NOTE | 2024-11-25 08:34 | PM.EVENT ---
Event Note Date of Service: 11/25/24 Event Note: GI consult dictated EGD later today for evaluation of UGI bleed Consent obtained from Michael Perales, brother, . Time Spent With Patient Time: Total time managing care of this patient today ____ minutes.
--- NOTE | 2024-11-25 09:07 | MHC.CM.PN ---
Patient has Vascular Dementia and appears unable to respond to questions; CM spoke with HCP/Brother/Michael @ [phone] and addressed IMM with him (original has been left at bedside, per Michael's request, and a copy has been placed on the chart). [facility] and returning to LTC is the plan. CM has initiated and will follow for dc planning.
--- NOTE | 2024-11-25 09:48 | CONS_ITS ---
DATE OF SERVICE: 11/25/2024 REFERRING PROVIDER: Martell Kelly REASON FOR CONSULTATION: GI bleeding. HISTORY OF PRESENT ILLNESS: The patient is a 74-year-old who was admitted to the hospital after presenting to the emergency room from his nursing facility with complaints of coffee-ground emesis. This began the night before admission and there was associated abdominal pain reported. No melena was reported. He was evaluated in the emergency department and found to have fever, tachycardia, and hypoxia with an elevated white count. NG tube placement showed black NG tube material with no bright red blood, which has cleared this morning. He underwent imaging which showed no active bleeding and was seen by surgery. He does take Xarelto because of a history of atrial fibrillation and there is no reported prior history of peptic ulcer disease or chronic NSAID usage. There is no reported alcohol or substance abuse. PAST MEDICAL HISTORY: 1. Vascular dementia. 2. CVA with left-sided hemiparesis. 3. Parkinson disease. 4. Atrial fibrillation. 5. Hypertension. 6. BPH. 7. Aspiration pneumonia. CURRENT MEDICATIONS: His current medication list is reviewed in the chart. Last date of Xarelto administration is not reported. ALLERGIES: THERE ARE NONE REPORTED. FAMILY HISTORY: This is reviewed with the medical record and is noncontributory. SOCIAL HISTORY: He resides at [facility] and is not reported to smoke or abuse alcohol. 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 REVIEW OF SYSTEMS: This was not obtainable. PHYSICAL EXAMINATION: GENERAL: Shows a male lying in bed. VITAL SIGNS: Reviewed in electronic medical record and are stable. SKIN: Pale. HEENT: Shows no scleral icterus. NG tube is in place. NECK: Without lymphadenopathy or thyromegaly. LUNGS: Clear. HEART: Shows regular rate and rhythm. S1, S2. No murmur. ABDOMEN: Soft without focal masses or tenderness. Bowel sounds are present. No organomegaly is noted. EXTREMITIES: Without edema. LABORATORY DATA: Reviewed as are imaging studies. Hematocrit on admission was 44.3, and dropped to 35.3 overnight after IV fluids and equal abrasion. There has been no melena. IMPRESSION: Upper gastrointestinal bleeding. The differential diagnosis for this includes erosive esophagitis, peptic ulcer disease, gastritis, and malignancy. I have recommended further evaluation with upper endoscopy given his need for anticoagulation for his underlying atrial fibrillation. I have discussed the procedure in detail with the patient's brother Michael Perales, . He understands risks and benefits and agrees to proceed. In the interim, I agree with treating him with a proton pump inhibitor and monitoring his hematocrit. Thanks for asking me to see him. I will follow him in the hospital with you. MD SUKHI Brown/KASEY / [phone] MTDKanchan
--- NOTE | 2024-11-25 10:16 | MHC.SLORD ---
Speech Language Pathology Order Status: Pt is NPO, NG tube in place (replaced by RN after pulled out by pt). EGD planned today d/t UGI bleed. ANATOMIC PATHOLOGY ASSISTANT to assess for PO tolerance s/p EGD.
--- NOTE | 2024-11-25 14:38 | P.CONAN_ITS ---
HPI - Anesthesia Eval Consult details Narrative: upper endo, for gi bleed eval PMF Active Problems Active Problems: All Active Problems GI bleed (Acute) Sepsis (Acute) Upper GI bleed (Acute) Acute metabolic encephalopathy (Acute) Sepsis (Acute) Pneumonia (Acute) External hemorrhoids with complication (Acute) Vascular dementia (Acute) Mood disorder (Acute) Hypertension (Acute) BPH (benign prostatic hyperplasia) (Acute) Past Medical History Medical History Parkinson disease Atrial fibrillation External hemorrhoids with complication Vascular dementia Mood disorder Hypokalemia Hypertension BPH (benign prostatic hyperplasia) Family History Family history of problems with anesthesia: No Social History Social History Household Members: Unknown / Unable to assess Housing: Correction Do you presently have visiting nurse or other home services: No Unable to assess alcohol history related to: Unknown Alcohol intake: former Patient Tobacco Use Status: Tobacco use Unknown service: No Meds Allergies Allergy/AdvReac Type Severity Reaction Status Date / Time No Known Allergies Allergy Verified 11/24/24 08:36 Active Medications: Current Medications Acetaminophen (Acetaminophen 325 Mg Tablet) 650 mg PO Q6H PRN PRN Reason: Pain, Mild 1-3,fever,headache Calcium Carbonate (Calcium Carbonate 750 Mg Tab.Chew) 750 mg PO Q4H PRN PRN Reason: Heartburn Lactated Ringer's (Lr) 1,000 mls @ 80 mls/hr IVCONT .[id number] [facility] Last Admin: 11/25/24 06:35 Dose: 80 mls/hr Piperacillin Sod/Tazobactam (Sod 4.5 gm/ Sodium Chloride) 100 mls @ 200 mls/hr IV Q6H [facility] Last Admin: 11/25/24 14:09 Dose: 200 mls/hr Lorazepam (Lorazepam 2 Mg/Ml Vial) 0.5 mg IVPUSH Q6H PRN PRN Reason: anxiety/restlessness Magnesium Hydroxide (Milk Of Magnesia 30 Ml Oral.Susp) 30 ml PO DAILY PRN PRN Reason: Constipation Melatonin (Melatonin 3 Mg Tablet) 6 mg PO BEDTIME PRN PRN Reason: Insomnia Ondansetron HCl (Ondansetron Hcl 4 Mg/2 Ml Vial) 4 mg IVPUSH Q8H PRN PRN Reason: Nausea and Vomiting Pantoprazole Sodium (Pantoprazole Sodium 40 Mg/10 Ml Vial) 40 mg IVPUSH BID@0630,1630 [facility] Last Admin: 11/25/24 06:32 Dose: 40 mg Sodium Chloride (0.9 % Sodium Chloride Flush 3 Ml Syringe) 3 ml IVFLUSH QSHIFT [facility] Last Admin: 11/25/24 07:28 Dose: 3 ml Home Medications ?Medication ?Instructions ?Recorded ?Confirmed ?Last Taken ?Type acetaminophen 325 mg tablet 325 mg PO Q6H PRN FEVER/PAIN 07/11/22 11/24/24 Unknown History carbidopa ER 50 mg-levodopa 200 mg 1 tab PO QID 07/11/22 11/24/24 Unknown History tablet,extended release finasteride 5 mg tablet 5 mg PO DAILY 07/11/22 11/24/24 Unknown History hydrochlorothiazide 25 mg tablet 25 mg PO DAILY 07/11/22 11/24/24 Unknown History lactulose 10 gram/15 mL oral 30 ml PO DAILY 07/11/22 11/24/24 Unknown History solution oxcarbazepine 300 mg tablet 300 mg PO BID 07/11/22 11/24/24 Unknown History potassium chloride 10 mEq 20 meq PO DAILY 07/11/22 11/24/24 Unknown History tablet,extended release rivaroxaban 15 mg tablet (Xarelto) 15 mg PO DAILY 07/11/22 11/24/24 Unknown History ropinirole 0.25 mg tablet 0.25 mg PO BEDTIME 07/11/22 11/24/24 Unknown History tamsulosin 0.4 mg capsule 0.4 mg PO BEDTIME 07/11/22 11/24/24 Unknown History tramadol 50 mg tablet 50 mg PO TID Pain 07/11/22 11/24/24 Unknown History calcium carbonate 500 mg PO DAILY 02/27/23 11/24/24 Unknown History melatonin 5 mg tablet 5 mg PO BEDTIME 02/27/23 11/24/24 Unknown History psyllium husk 3.4 gram/5.4 gram 1 tbsp PO DAILY 02/27/23 11/24/24 Unknown History oral powder (Metamucil) sennosides 8.6 mg tablet (senna) 8.6 mg PO Q24H PRN Constipation 02/27/23 11/24/24 Unknown History bisacodyl 10 mg rectal suppository 10 mg MN DAILY PRN Constipation 11/24/24 11/24/24 Unknown History docusate sodium 100 mg capsule 100 mg PO BID 11/24/24 11/24/24 Unknown History (Colace) hydrocortisone 1 % topical cream 1 appl topical DAILY 11/24/24 11/24/24 Unknown History (Preparation H Hydrocortisone) mirtazapine 15 mg tablet 15 mg PO DAILY 11/24/24 11/24/24 Unknown History naloxone 4 mg/actuation nasal 4 mg intranasal Q3M PRN OVERDOSE 11/24/24 11/24/24 Unknown History spray (Narcan) sodium phosphates 19 gram-7 118 ml MN Q24H PRN Constipation 11/24/24 11/24/24 Unknown History gram/118 mL enema (Fleet Enema) Exam Height,Weight and Vital Signs: Height 5 ft 10 in Weight 64.9 kg Last Vital Signs Temp 98.1 F 11/25/24 11:12 Pulse 65 11/25/24 11:12 Resp 18 11/25/24 11:12 BP 140/60 H 11/25/24 11:12 Pulse Ox 97 11/25/24 11:12 O2 Del Method Room Air 11/25/24 11:12 O2 Flow Rate 4 11/24/24 09:25 Pertinent Lab Results Pertinent Lab Results: Laboratory Tests 11/24/24 11/24/24 11/24/24 08:48 08:49 09:06 WBC 22.3 H RBC 5.03 D Hgb 14.6 D Hct 44.3 D MCV 88.1 MCH 29.0 MCHC 33.0 RDW 15.1 Plt Count 255 MPV 9.8 Immature Gran % (Auto) Cancelled Neut % (Auto) Cancelled Lymph % (Auto) Cancelled [place] % (Auto) Cancelled Eos % (Auto) Cancelled Baso % (Auto) Cancelled Lymph # (Auto) Cancelled [place] # (Auto) Cancelled Eos # (Auto) Cancelled Baso # (Auto) Cancelled Abs Immat Gran (auto) Cancelled Absolute Neuts (auto) Cancelled Absolute Nucleated RBC 0.000 Nucleated RBC % (auto) 0.0 Neutrophils % (Manual) 87 H Band Neutrophils % 8 H Lymphocytes % (Manual) 2 L Monocytes % (Manual) 3 Abs Neuts (Manual) 21.2 H Lymphocytes # (Manual) 0.4 L Monocytes # (Manual) 0.7 Platelet Estimate NORMAL Plt Morphology Comment NORMAL RBC Morphology NORMAL Smear Tech's Comments MANUAL DIFF PT 14.0 H INR 1.2 H Sodium 138 Potassium 3.8 Chloride 100 Carbon Dioxide 25 Anion Gap 17 BUN 28 H Creatinine 0.89 Estim Creat Clear Calc 74.5 Estimated GFR > 60 Random Glucose 154 H Lactic Acid 4.3 H* Lactic Acid F/U @ 2Hr Calcium 9.2 Magnesium 2.1 Total Bilirubin 0.6 AST 19 ALT 11 Alkaline Phosphatase 102 Total Protein 8.4 H Albumin 4.3 Urine Color Yellow Urine Appearance Clear Urine pH 7.5 Ur Specific [place] >= 1.030 H Urine Protein 30 (1+) H Urine Glucose (UA) Negative Urine Ketones 15 Urine Blood Negative Urine Nitrite Negative Ur Leukocyte Esterase Trace H Urine RBC 6-10 H Urine WBC 0-5 Ur Squamous Epith Cells 0-2 Urine Bacteria None Seen Hyaline Casts 0-2 Influenza Type A (PCR) NEGATIVE Influenza Type B (PCR) NEGATIVE RSV RNA Qual (PCR) NEGATIVE SARS-CoV-2 RNA (RT-PCR) NEGATIVE Blood Type A Positive Antibody Screen NEGATIVE 11/24/24 11/24/24 11/24/24 10:58 15:47 17:01 WBC 23.4 H RBC 4.29 L Hgb 12.6 L Hct 38.3 L MCV 89.3 MCH 29.4 MCHC 32.9 RDW 15.0 Plt Count 223 MPV 10.1 Immature Gran % (Auto) 0.6 H Neut % (Auto) 89.7 H Lymph % (Auto) 5.6 L [place] % (Auto) 4.0 Eos % (Auto) 0.0 Baso % (Auto) 0.1 Lymph # (Auto) 1.3 [place] # (Auto) 0.9 Eos # (Auto) 0.0 Baso # (Auto) 0.0 Abs Immat Gran (auto) 0.13 H Absolute Neuts (auto) 21.0 H Absolute Nucleated RBC 0.000 Nucleated RBC % (auto) 0.0 Neutrophils % (Manual) Band Neutrophils % Lymphocytes % (Manual) Monocytes % (Manual) Abs Neuts (Manual) Lymphocytes # (Manual) Monocytes # (Manual) Platelet Estimate Plt Morphology Comment RBC Morphology Smear Tech's Comments PT INR Sodium Potassium Chloride Carbon Dioxide Anion Gap BUN Creatinine Estim Creat Clear Calc Estimated GFR Random Glucose Lactic Acid 4.9 H* Lactic Acid F/U @ 2Hr 2.0 Calcium Magnesium Total Bilirubin AST ALT Alkaline Phosphatase Total Protein Albumin Urine Color Urine Appearance Urine pH Ur Specific [place] Urine Protein Urine Glucose (UA) Urine Ketones Urine Blood Urine Nitrite Ur Leukocyte Esterase Urine RBC Urine WBC Ur Squamous Epith Cells Urine Bacteria Hyaline Casts Influenza Type A (PCR) Influenza Type B (PCR) RSV RNA Qual (PCR) SARS-CoV-2 RNA (RT-PCR) Blood Type Antibody Screen 11/24/24 11/25/24 22:26 04:42 WBC 12.3 H RBC 3.83 L Hgb 11.7 L 11.2 L Hct 36.3 L 35.3 L MCV 92.2 MCH 29.2 MCHC 31.7 RDW 15.4 Plt Count 161 D MPV 9.7 Immature Gran % (Auto) 0.5 H Neut % (Auto) 79.8 H Lymph % (Auto) 12.4 L [place] % (Auto) 6.9 Eos % (Auto) 0.2 Baso % (Auto) 0.2 Lymph # (Auto) 1.5 [place] # (Auto) 0.9 Eos # (Auto) 0.0 Baso # (Auto) 0.0 Abs Immat Gran (auto) 0.06 H Absolute Neuts (auto) 9.8 H Absolute Nucleated RBC 0.000 Nucleated RBC % (auto) 0.0 Neutrophils % (Manual) Band Neutrophils % Lymphocytes % (Manual) Monocytes % (Manual) Abs Neuts (Manual) Lymphocytes # (Manual) Monocytes # (Manual) Platelet Estimate Plt Morphology Comment RBC Morphology Smear Tech's Comments PT INR Sodium 143 Potassium 3.3 Chloride 110 H Carbon Dioxide 25 Anion Gap 11 L BUN 18 H Creatinine 0.66 Estim Creat Clear Calc 100.5 Estimated GFR > 60 Random Glucose 86 Lactic Acid Lactic Acid F/U @ 2Hr Calcium 8.5 D Magnesium Total Bilirubin AST ALT Alkaline Phosphatase Total Protein Albumin Urine Color Urine Appearance Urine pH Ur Specific [place] Urine Protein Urine Glucose (UA) Urine Ketones Urine Blood Urine Nitrite Ur Leukocyte Esterase Urine RBC Urine WBC Ur Squamous Epith Cells Urine Bacteria Hyaline Casts Influenza Type A (PCR) Influenza Type B (PCR) RSV RNA Qual (PCR) SARS-CoV-2 RNA (RT-PCR) Blood Type Antibody Screen Airway Mallampati Class: Patient Non-Cooperative Neck ROM: Poor Heart: rrr Lungs: cta Assessment and Plan Assessment Anesthesia Assessment: Anesthesia Plan Discussed and Chart Reviewed Final Anesthetic Review Family History of Problems with Anesthesia: No NPO: Yes ASA Class: III Final Preanesthetic Review: No Changes in Pt Med Stat, Meds/Allgs Chart Reviewed, Consent Obtained/Reviewed and Anes Risks/Benef Reviewed Patient Risk: Intermediate Procedure Risk: Low Anesthetic Plan Anesthetic Plan: MAC: Disposition: Standard PACU
--- NOTE | 2024-11-25 15:01 | PM.OP ---
Brief Operative Note Date of Service: 11/25/24 Pre-op diagnosis: UGIB Post-op diagnosis: same Procedure: EGD Surgeon: Vargas Mooney MD Anesthesia: MAC Was an Assistant Professor Of Physics used for this Procedure?: No Estimated blood loss (mL): 2 Pathology: other Condition: stable Disposition: PACU
--- NOTE | 2024-11-25 15:02 | PM.EVENT ---
Event Note Date of Service: 11/25/24 Event Note: EGD note dictated erosive esophagitis with 2 small ulcers at EGJ gastritis, antral bx's taken normal duodenum rec: advance diet as tolerated hold ac x3d, (consider d/c if no longer needed) ppi indefinitely Time Spent With Patient Time: Total time managing care of this patient today ____ minutes.
--- NOTE | 2024-11-26 02:15 | OP_ITS ---
DATE OF SERVICE: 11/25/2024 SURGEON: Vargas Mooney MD INDICATIONS: Upper GI bleeding. PREOPERATIVE DIAGNOSIS: POSTOPERATIVE DIAGNOSIS: PROCEDURE PERFORMED: Upper endoscopy with biopsy. ESTIMATED BLOOD LOSS: COMPLICATIONS: ANESTHESIA: Monitored anesthesia care. ASSISTANTS: SPECIMENS: DESCRIPTION OF PROCEDURE: A history and physical was performed. The risks and benefits of the procedure were explained to the patient's brother and healthcare proxy. Informed consent was obtained. The patient was placed in the left lateral decubitus position. The Olympus video gastroscope was introduced into the esophagus, stomach, and duodenum. Examination was performed. The scope was removed. He tolerated the procedure well and was sent to the recovery area in stable condition. FINDINGS: Esophagus: There was distal esophagitis with 2 ulcers that were approximately 10 mm x 5 mm and 4 mm x 3 mm at the EG junction. There was no bleeding. Stomach: The stomach showed no evidence of masses or ulcers. There was mild gastritis throughout with some NG suction jenkins as well. Antral biopsies were obtained. Duodenum: The bulb and second portion were normal. IMPRESSION: 1. Erosive esophagitis. 2. Gastritis. RECOMMENDATION: 1. Follow up the biopsy results. 2. Hold anticoagulation for 3 days. MD SUKHI Brown/KASEY / [id number]
[2024-11-26] MEDS: Piperacillin Sodium/Tazobactam 4.5 GM in 0.9 % Sodium Chloride 100 ML IV ×2 (02:24→07:42)
[2024-11-26] MEDS: Lactated Ringers 1,000 ML 80 ML IVCONT ×2 (03:07→15:57)
[2024-11-26 03:14] VITALS: BP 142/65; PULSE 77; RESP 18; TEMP 36.4; O2SAT 99
[2024-11-26] MEDS: Pantoprazole Sodium 40 MG/10 ML VIAL IVPUSH ×2 (06:18→17:21)
[2024-11-26 07:22] VITALS: BP 143/64; PULSE 71; RESP 18; TEMP 36.4; O2SAT 97
[2024-11-26 07:35] LABS: Hematocrit 34.8 % (42.0-52.0); Hemoglobin 11.2 g/dl (14.0-18.0); Mean Corpuscular HGB Conc 32.2 g/dl (31.0-36.0); Mean Corpuscular Hemoglobin 29.6 pg (27.0-33.0); Mean Corpuscular Volume 92.1 fL (80.0-98.0); Platelet Count 177 X10*3/uL (160-400); Red Blood Count 3.78 X10*6/uL (4.60-5.80); Red Cell Distribution Width 15.1 % (11.0-16.0); White Blood Count 8.9 X10*3/uL (4.8-10.8)
[2024-11-26] MEDS: 0.9 % Sodium Chloride Flush 3 ML SYRINGE IVFLUSH (07:42)
[2024-11-26 07:48] LABS: Anion Gap 12 (12-20); Blood Urea Nitrogen 13 mg/dL (9-16); Calcium 8.3 mg/dL (8.4-10.2); Carbon Dioxide 24 mmol/L (22-29); Chloride 114 mmol/L (96-108); Creatinine Clr Calc Pharmacy 86.2; Estimated Glomerular Filt Rate > 60; Glucose Random 75 mg/dL (60-115); Potassium 3.5 mmol/L (3.3-5.1); Sodium 146 mmol/L (135-145)
[2024-11-26 11:10] VITALS: BP 144/63; PULSE 75; RESP 18; TEMP 36.4; O2SAT 96
--- NOTE | 2024-11-26 11:40 | MHC.SL.SWA ---
Risk of Aspiration Due to: Lethargy Reduced Cognition Weak Voice Dysphasia Diet Status: UPGRADE when cleared by MD Liquid Consistency and Strategies for Safe Swallow: Liquid Intake Recommendation: Thin Liquid Intake Strategies: Small Sips No Straws Liquids by Teaspoon Only Solid Food Consistency: Dietary Recommendations: Chopped/Advanced (NDD3) Additional Modifications to Solid Foods: Moisten in extra sauce/gravy Oral Medication Intake: Crushed with Puree Please contact the pharmacy regarding appropriate crushable or liquid drug formulations that are available whenever modified delivery is recommended. Compensatory Strategies and Precautions to be Taken for Safe Swallow: Sitting Upright (90 deg) Slow rate of ingestion No straws Teaspoon only Supervision While Eating and Drinking for Safe Swallow: Total Assistance (1:1) Foods to Avoid: Avoid dry foods Recommendation for Speech: Outpatient Speech Therapy Inpatient Speech Therapy Modified Barium Swallow Study - Outpatient Comment: Pt on clear liquid diet at time of evaluation. When cleared by MD, recommend UPGRADE to CHOPPED/ADVANCED solids (extra sauce) and THIN liquids (NO STRAW, TSP ONLY). CRUSHED MEDS in puree. Pt requires 1-1 assist. Aspiration precautions include sitting upright and not slouched to side when eating, slow rate, moisten food w/ sauce, and intermittent cues to swallow hard. Recommend instrumental swallow evaluation (outpatient vs. inpatient) d/t risk factors including recurrent PNA, Parkinsons, dementia, and overt s/s aspiration (cough, wet voice). This recommendation reported to MD at hospital and RN at [facility]. Pt may benefit from further TICKET MANAGER evaluation (outpatient vs. SNF) for voice secondary to Parkinsons. Frequency/Duration: PRN Date Range for Service Req: M-F Kosher Sealer Clinican/Clinical Fellow: No Supervisory Statement: I have reviewed and agree with the student/clinical fellow's documentation: N/A Speech Language Pathologist: Snehal Valadez M.A., CCC-TICKET MANAGER
--- NOTE | 2024-11-26 13:17 | P.PNGI_ITS ---
Subjective Subjective Date of Service: 11/26/24 Interval History: no pain, nausea or bleeding per pt and nursing Critical Care Time (minutes): 0 Physical Exam 2 Vital Signs: Vital Signs: Last Vital Signs Temp 97.6 F 11/26/24 11:10 Pulse 75 11/26/24 11:10 Resp 18 11/26/24 11:10 BP 144/63 H 11/26/24 11:10 Pulse Ox 96 11/26/24 11:10 O2 Del Method Room Air 11/26/24 11:10 O2 Flow Rate 6 11/25/24 15:05 BMI result Body Mass Index 20.5 GI: Other: abdomen is soft and nontender. Objective Data Labs 11/26/24 07:11 11/26/24 07:11 Microbiology Microbiology Results: Microbiology 11/24/24 08:48 Blood - Venous Blood Culture - Preliminary No growth after 48 hours. 11/24/24 08:48 Blood - Venous Blood Culture - Preliminary No growth after 48 hours. Procedures Date of Service Date of Service: 11/26/24 Progress Note: A&P Assessment and plan (1) GI bleed: Status: Acute Assessment and Plan: stable post egd continue ppi advance diet. Time Spent With Patient Time: Total time managing care of this patient today ____ minutes. Quality Stroke Does the patient have a stroke diagnosis?: No VTE Prior VTE?: No VTE Risk Level:: Medical - moderate - high VTE Device Contraindication: N/A - Device Ordered VTE Drug Contraindication: Treatment Not Indicated
[2024-11-26 15:01] VITALS: BP 139/82; PULSE 67; RESP 17; TEMP 36.8; O2SAT 97
--- NOTE | 2024-11-26 18:02 | PC.NURSE ---
male purewick was empty and unsure if he voided prior to my shift, bladder scan showed 446 and order given to straight cath him, when this RN went into room to do the procedure, 300 cc of dark conc yellow urine was now in the canister, informed provider and straight cath was cancelled
--- NOTE | 2024-11-26 18:58 | HO.PM.IMPN ---
Subjective Subjective Date of Service: 11/26/24 Interval History: No issues overnight, h/h stable Physical Exam Vital Signs: Vital Signs: Last Vital Signs Temp 98.3 F 11/26/24 15:01 Pulse 67 11/26/24 15:01 Resp 17 11/26/24 15:01 BP 139/82 11/26/24 15:01 Pulse Ox 97 11/26/24 15:01 O2 Del Method Room Air 11/26/24 15:01 O2 Flow Rate 6 11/25/24 15:05 BMI result Body Mass Index 20.5 Const: Other: Constitutional - Awake and Alert, No apparent distress. Soft restraints Eyes - PERRLA, EOMI Cardiovascular - S1S2, RRR, No edema Respiratory - Normal lung expansion, Normal respiratory effort, No respiratory distress, b/l crackles Gastrointestinal - nt, with guarding. ND; +BS; No rebound Extremities - no calf tenderness bilaterally, no swelling Skin - Warm/Dry Neurological - Alert & oriented to self only Objective Data Active Medications Acetaminophen (Acetaminophen 325 Mg Tablet) 650 mg PO Q6H PRN PRN Reason: Pain, Mild 1-3,fever,headache Calcium Carbonate (Calcium Carbonate 750 Mg Tab.Chew) 750 mg PO Q4H PRN PRN Reason: Heartburn Lorazepam (Lorazepam 2 Mg/Ml Vial) 0.5 mg IVPUSH Q6H PRN PRN Reason: anxiety/restlessness Magnesium Hydroxide (Milk Of Magnesia 30 Ml Oral.Susp) 30 ml PO DAILY PRN PRN Reason: Constipation Melatonin (Melatonin 3 Mg Tablet) 6 mg PO BEDTIME PRN PRN Reason: Insomnia Naloxone HCl (Naloxone Hcl 0.4 Mg/Ml Vial) 0.04 mg IVPUSH Q5M PRN PRN Reason: Excessive sedation or RR < 8 Ondansetron HCl (Ondansetron Hcl 4 Mg/2 Ml Vial) 4 mg IVPUSH Q8H PRN PRN Reason: Nausea and Vomiting Pantoprazole Sodium (Pantoprazole Sodium 40 Mg/10 Ml Vial) 40 mg IVPUSH BID@0630,1630 [facility] Last Admin: 11/26/24 17:21 Dose: 40 mg Documented By: ANNELIESE Sodium Chloride (0.9 % Sodium Chloride Flush 3 Ml Syringe) 3 ml IVFLUSH QSHIFT [facility] Last Admin: 11/26/24 17:13 Dose: Not Given Documented By: ANNELIESE Non-Admin Reason: IV Running Labs 11/26/24 07:11 11/26/24 07:11 Labs: Laboratory Results - last 24 hr 11/26/24 07:11 MCV 92.1 MCH 29.6 MCHC 32.2 RDW 15.1 Plt Count 177 MPV 10.0 Absolute Nucleated RBC 0.000 Nucleated RBC % (auto) 0.0 Anion Gap 12 Estim Creat Clear Calc 86.2 Estimated GFR > 60 Random Glucose 75 Calcium 8.3 L Microbiology Microbiology Results: Microbiology 11/24/24 08:48 Blood Culture - Preliminary Blood - Venous No growth after 48 hours. 11/24/24 08:48 Blood Culture - Preliminary Blood - Venous No growth after 48 hours. Assessment and Plan (1) Upper GI bleed: Status: Acute Plan 74-year-old male with history of vascular dementia, history of CVA with left-sided hemiparesis, Parkinson's disease, unspecified atrial fibrillation anticoagulated with Xarelto,hypertension, BPH, and recurrent pneumonia presented to the ED from [facility] where he resides admitted for further management of acute upper GI bleed and aspiration pneumonia. Xarelto was stopped and an NGT was inserted, IV PPI was initiated. He underwent EGD on 11/25 and found to have erosive esophagitis with 2 small ulcers at EGJ gastritis, antral bx's taken normal duodenu. GI recommends advance diet as tolerated hold ac x3d, (consider d/c if no longer needed) ppi indefinitely Acute aspiration pneumonia-likely secondary to vomiting with severe sepsis, sepsis resolved. He is saturating 97% on room air. WBC down from 23 to now 8.9. DIRECTOR OF RELIGIOUS LIFE recommends 1:1 feed w/ UPGRADE to chopped/advanced solids (w/ extra sauce) and thin liquids (slow feed via tsp w/ intermittent cues to swallow hard or clear throat ). vascular dementia mentation baseline. Maintain sleep wake cycle Parkinson's disease continue Sinemet BPH continue Proscar, Flomax paroxysmal atrial fibrillation holding xarelto for 3 days as stated above hypertension hold HCTZ Dispo: to return to SNF dvt prophylaxis: device Quality Stroke Does the patient have a stroke diagnosis?: No VTE Prior VTE?: No VTE Risk Level:: Medical - moderate - high VTE Device Contraindication: N/A - Device Ordered VTE Drug Contraindication: Treatment Not Indicated
[2024-11-26 20:00] VITALS: BP 141/97; PULSE 108; RESP 18; TEMP 36.6; O2SAT 97
[2024-11-26 23:24] VITALS: BP 140/90; PULSE 6; RESP 20; TEMP 36.6; O2SAT 99
[2024-11-27 03:12] VITALS: BP 148/66; PULSE 71; RESP 20; TEMP 37; O2SAT 99
[2024-11-27] MEDS: Pantoprazole Sodium 40 MG/10 ML VIAL IVPUSH (05:45)
[2024-11-27 07:13] VITALS: BP 145/64; PULSE 68; RESP 18; TEMP 36.6; O2SAT 99
[2024-11-27] MEDS: 0.9 % Sodium Chloride Flush 3 ML SYRINGE IVFLUSH (08:06)
--- NOTE | 2024-11-27 10:16 | MHC.CM.PN ---
Patient is medically cleared for dc to LTC today. Patient will return to LTC @ [facility] today at 1:30 PM, via [facility]. CM spoke with Brother/HCP/Rodriguez @ [phone] and informed him of the dc plan; he is in agreement. Last IMM addressed on 11/25/2024.
--- NOTE | 2024-11-27 10:55 | PM.DS ---
DS: Providers Provider Date of Service: 11/27/24 Date of admission: 11/24/24 17:50 Date of discharge: 11/27/24 Primary care physician: Martin Telles DO Consults: 11/24/24 17:49 Consult to Gastroenterology Routine Consulting Provider: Vargas Mooney Reason for consultation: UGIB DS: Diagnosis Discharge Diagnosis (1) Upper GI bleed: Status: Acute DS: Summary Hospital Course Hospital Course: Admission hpi Chief Complaint: hemetemesis 74-year-old male with history of vascular dementia, history of CVA with left-sided hemiparesis, Parkinson's disease, unspecified atrial fibrillation anticoagulated with Xarelto,hypertension, BPH, and recurrent aspiration pneumonia presented to the ED from [facility] where he resides due to coffee-ground emesis ongoing since last night with patient reported diffuse abdominal pain. Further review of system unable to be obtained secondary to patient's mental status related to vascular dementia. On arrival to the unit, patient was febrile to 102.3 and tachycardic to 114. He was initially hypoxic to 88% and was placed on 2 L supplemental O2 and was subsequently weaned now maintaining oximetry 95%. On arrival, leukocytosis 22.3, H/H 14.6/44.3. Repeat WBC 23.4, H/H 12.6/38.3 after 600ml black emesis collected via NG tube placed at bedside. Creatinine normal, BUN elevated at 28. Electrolyte levels normal. Initial 4.3 with repeat of 4.9 improved to 2.0 following IV fluids. Hepatic function within normal limits. Urinalysis not indicative of infection. Negative for influenza, RSV, COVID-19. CTA of the abdomen/pelvis shows some ground-glass opacification in the lower lobes possibly infectious. There is also distention of the stomach and small bowel throughout the proximal jejunum but no evidence of high-grade mechanical obstruction, consider gastroenteritis. No evidence of active bleeding. He was evaluated by General surgery who did not feel that there was any surgical issues present. In the ED, has received 3.1 L of IV LR, ppi, Tylenol, lorazepam, and Zosyn. Hospital course: A 74-year-old male with a history of vascular dementia, history of cerebrovascular accident (CVA) with left-sided hemiparesis, Parkinson's disease, unspecified atrial fibrillation anticoagulated with rivaroxaban (Xarelto), hypertension, benign prostatic hyperplasia (BPH), and recurrent pneumonia presented to the ED from [facility], where he resides, admitted for further management of acute upper gastrointestinal (GI) bleed and aspiration pneumonia. Rivaroxaban was stopped, and a nasogastric tube (NGT) was inserted. Intravenous proton pump inhibitor (PPI) was initiated. He underwent esophagogastroduodenoscopy (EGD) on 11/25 and was found to have erosive esophagitis with two small ulcers at the esophagogastric junction (EGJ), gastritis, and normal duodenal antral biopsies. Gastroenterology recommends: advance diet as tolerated, hold antacids (AC) for three days (consider discontinuation if no longer needed), PPI indefinitely, advise to restart rivaroxaban on 11/29. Acute aspiration pneumonian with sepsis--likely secondary vomitting, sepsis resolved. He is saturating 97-99% on room air. WBC down from 23 to now 8.9. LIFESTYLE DIRECTOR recommends 1:1 feed w/ UPGRADE to chopped/advanced solids (w/ extra sauce) and thin liquids (slow feed via tsp w/ intermittent cues to swallow hard or clear throat ). Will discharge with Augmentin to complete 7 days course of antibiotics vascular dementia mentation baseline. Maintain sleep wake cycle Parkinson's disease continue Sinemet BPH continue Proscar, Flomax paroxysmal atrial fibrillation holding xarelto for 3 days as stated above hypertension hold HCTZ Dispo: to return to SNF Time Attestation Discharge Coordination Time (in mins): 40 Quality: Safe Use of Opioids Does Pt have an Active Cancer Diagnosis on the Problem List?: No Quality: Stroke Does the patient have a stroke diagnosis?: No Physical Exam Vital Signs: Vital Signs: Selected Entries 11/27/24 07:13 Temperature 97.9 F Pulse Rate 68 Respiratory Rate 18 Blood Pressure 145/64 H Pulse Oximetry 99 Oxygen Delivery Me thod Room Air Const: Other: Constitutional - Awake and Alert, No apparent distress. Soft restraints Eyes - PERRLA, EOMI Cardiovascular - S1S2, RRR, No edema Respiratory - Normal lung expansion, Normal respiratory effort, No respiratory distress, b/l crackles Gastrointestinal - nt, with guarding. ND; +BS; No rebound Extremities - no calf tenderness bilaterally, no swelling Skin - Warm/Dry Neurological - Alert & oriented to self only DS: Data Data Completed and Pending Pending studies at discharge: Pending at discharge 11/25/24 14:53 Surgical [PTH] Routine Labs on day of discharge: Laboratory Results - last 24 hr 11/26/24 07:11 WBC 8.9 RBC 3.78 L Hgb 11.2 L Hct 34.8 L MCV 92.1 MCH 29.6 MCHC 32.2 RDW 15.1 Plt Count 177 MPV 10.0 Absolute Nucleated RBC 0.000 Nucleated RBC % (auto) 0.0 Sodium 146 H Potassium 3.5 Chloride 114 H Carbon Dioxide 24 Anion Gap 12 BUN 13 Creatinine 0.70 Estim Creat Clear Calc 86.2 Estimated GFR > 60 Random Glucose 75 Calcium 8.3 L Preliminary micro results at discharge 11/24/24 08:48 Blood Culture - Preliminary Blood - Venous No growth after 24 hours. 11/24/24 08:48 Blood Culture - Preliminary Blood - Venous No growth after 24 hours. Discharge Plan Discharge Anticipated Discharge Date/Time: 11/27/24 10:51 Patient Disposition: er [facility] Discharge Diagnosis: Upper GI bleeding, sepsis Referrals: [facility] [Outside] - 1 Week Martin Telles DO [Primary Care Provider] - 1 Week Discharge Medications: New amoxicillin-pot clavulanate 875-125 mg tablet 1 tab PO BID Qty: 10 0RF Rx Instructions: crush in apple sauce Prilosec 10 mg susp,delayed release for recon 40 mg PO DAILY Qty: 60 0RF Continued hydrocortisone [Preparation H Hydrocortisone] 1 % Cream 1 appl TOPICAL DAILY Rx Instructions: APPLY TO RECTAL AREA bisacodyl 10 mg Suppository 10 mg MD DAILY PRN (Reason: Constipation) Fleet Enema 19-7 gram/118 mL Enema 118 ml MD Q24H PRN (Reason: Constipation) docusate sodium [Colace] 100 mg Capsule 100 mg PO BID mirtazapine 15 mg Tablet 15 mg PO DAILY naloxone [Narcan] 4 mg/actuation [place],Non-Aerosol 4 mg INTRANASAL Q3M PRN (Reason: OVERDOSE) Rx Instructions: spray 1 dose into ONE nostril; alternate nostrils w each dose until help arrives sennosides [senna] 8.6 mg Tablet 8.6 mg PO Q24H PRN (Reason: Constipation) calcium carbonate 500 mg calcium (1,250 mg) Tablet 500 mg PO DAILY melatonin 5 mg Tablet 5 mg PO BEDTIME Metamucil 3.4 gram/5.4 gram Powder 1 tbsp PO DAILY Rx Instructions: mix into at least 8 oz of water or juice before administering carbidopa-levodopa 50-200 mg tablet extended release 1 tab PO QID acetaminophen 325 mg tablet 325 mg PO Q6H PRN (Reason: FEVER/PAIN) Rx Instructions: PAIN OR FEVER potassium chloride 10 mEq tablet extended release 20 meq PO DAILY lactulose 10 gram/15 mL solution 30 ml PO DAILY finasteride 5 mg tablet 5 mg PO DAILY hydrochlorothiazide 25 mg tablet 25 mg PO DAILY tamsulosin 0.4 mg capsule 0.4 mg PO BEDTIME ropinirole 0.25 mg tablet 0.25 mg PO BEDTIME tramadol 50 mg tablet 50 mg PO TID oxcarbazepine 300 mg tablet 300 mg PO BID Held Xarelto 15 mg tablet 15 mg PO DAILY Hold Instructions: Resume on 11/29/24. Discharge Orders: Discharge Order (Routine); Ordered 11/27/24 Ordered By: Yasmany Dillon Diet: Advance to usual diet Activity on Discharge: As tolerated Stand Alone Forms: Patient Portal Discharge page Print Language: Wolof Care Plan Goals: recovery from gi bleeding, anemia and sepsis Health Concerns: gi bleeding and anemia sepsis Plan of Treatment: hold xarelto for 3 days and resume in 11/29/24 Diet recommendation Liquid Consistency and Strategies for Safe Swallow: Liquid Intake Recommendation: Thin Liquid Intake Strategies: Small SipsNo Straws Liquids by Teaspoon Only Solid Food Consistency: Dietary Recommendations: Chopped/Advanced (NDD3) Additional Modifications to Solid Foods: Moisten in extra sauce/gravy Oral Medication Intake: Crushed with Puree Please contact the pharmacy regarding appropriate crushable or liquid drug formulations that are available whenever modified delivery is recommended. Compensatory Strategies and Precautions to be Taken for Safe Swallow: Sitting Upright (90 deg) Slow rate of ingestion No straws Teaspoon only Assessment: see above
[2024-11-27 11:13] VITALS: BP 107/63; PULSE 80; RESP 18; TEMP 36.4; O2SAT 100
--- NOTE | 2024-11-27 11:43 | MHC.SL.SWA ---
Speech Pathologist Impression: Moderate esophageal involvement suspected, recc GI consultation as indicated post discharge. Risk of Aspiration Due to: Lethargy Reduced Cognition Weak Voice Dysphasia Diet Status: Recommend patient continue with NDD3, thin liquids, pills crushed in puree. Recommend full supervision. Patient benefits from cues to slow rate of ingestion and alternate liquids/solids. Liquid Consistency and Strategies for Safe Swallow: Liquid Intake Recommendation: Thin Liquid Intake Strategies: Small Sips No Straws Liquids by Teaspoon Only Solid Food Consistency: Dietary Recommendations: Chopped/Advanced (NDD3) Additional Modifications to Solid Foods: Moisten in extra sauce/gravy Oral Medication Intake: Crushed with Puree Please contact the pharmacy regarding appropriate crushable or liquid drug formulations that are available whenever modified delivery is recommended. Compensatory Strategies and Precautions to be Taken for Safe Swallow: Sitting Upright (90 deg) Supervision While Eating and Drinking for Safe Swallow: Total Assistance (1:1) Foods to Avoid: Avoid dry foods Swallowing Recommended Treatments: Recommendation for Speech: Outpatient Speech Therapy Inpatient Speech Therapy Modified Barium Swallow Study - Outpatient Comment: Pt resuming NDD3 diet with thin liquids, no concerns reported by RNs. Pt observed to benefit from assistance for improved self-monitoring and pacing of PO intake. Pt continues to expel mucous into emesis bag or by spitting material across the room. Pt endorses continued difficulty with thick phlegm. No overt s/s of aspiration observed with current diet. It is recommended pt recieve further ANIMAL STICKER evaluation (outpatient vs. SNF) for voice and dysphagia secondary to Parkinsons. Frequency/Duration: PRN Date Range for Service Req: M-F Timeline to reassess: Subject Scientific Research Clinican/Clinical Fellow: No Supervisory Statement: I have reviewed and agree with the student/clinical fellow's documentation: N/A Speech Language Pathologist: Snehal Valadez M.A., [facility]-ANIMAL STICKER
== END 2024-11-27 14:00 | disposition home or self-care (01) | DRG 871 ==
LOC: HO.ED 16:35 → HO.EDOVER 18:11 → HO.IMC 11-25 07:43
PROVIDERS: Internal Medicine Gastroenterology; Registered Nurse Emergency; Admitting Provider Physician Assistant; Emergency Provider Emergency Medicine; PCP Hospitalist; Visit Provider Internal Medicine
PROC: 0DB78ZX Excision of Stomach, Pylorus, Via Natural or Artificial Opening Endoscopic, Diagnostic (ICD-10-PCS; principal; 2024-11-25 14:30)
DX: A41.9 Sepsis, unspecified organism (principal); J69.0 Pneumonitis due to inhalation of food and vomit; K29.71 Gastritis, unspecified, with bleeding; K22.11 Ulcer of esophagus with bleeding; D62 Acute posthemorrhagic anemia; I69.354 Hemiplegia and hemiparesis following cerebral infarction affecting left non-dominant side; N40.0 Benign prostatic hyperplasia without lower urinary tract symptoms; I10 Essential (primary) hypertension; R65.20 Severe sepsis without septic shock; F41.9 Anxiety disorder, unspecified; I48.0 Paroxysmal atrial fibrillation; G20.A1 Parkinson's disease without dyskinesia, without mention of fluctuations; F02.80 Dementia in other diseases classified elsewhere, unspecified severity, without behavioral disturbance, psychotic disturbance, mood disturbance, and anxiety; F01.50 Vascular dementia, unspecified severity, without behavioral disturbance, psychotic disturbance, mood disturbance, and anxiety; Z20.822 Contact with and (suspected) exposure to COVID-19; Z79.01 Long term (current) use of anticoagulants; Z79.899 Other long term (current) drug therapy
CPT/HCPCS: 0241U; 36415; 71045; 74177; 80048; 80053; 81001; 83605; 83735; 85007; 85014; 85018; 85025; 85027; 85610; 86850; 86900; 86901; 87040; 88305; 88313; 88342; 92610; 93005; 99285; J0171; J2003; J2060; J2470; J2543; J2704; J7120; Q9967

== ENCOUNTER → 2024-11-24 08:26 | Outpatient (BNV) | payer MEDICARE, MEDICAID, SELFPAY | PROVIDERS: Emergency Provider Emergency Medicine; PCP Hospitalist; Visit Provider Radiology Diagnostic Radiology | DX: R91.8 Other nonspecific abnormal finding of lung field (principal); R14.0 Abdominal distension (gaseous); Z93.1 Gastrostomy status | CPT/HCPCS: 71045 ==

== ENCOUNTER → 2024-11-24 08:26 | Outpatient (BNV) | payer MEDICARE, MEDICAID, SELFPAY | PROVIDERS: Emergency Provider Emergency Medicine; PCP Hospitalist; Visit Provider Internal Medicine | DX: I45.19 Other right bundle-branch block (principal); R94.31 Abnormal electrocardiogram [ECG] [EKG]; R41.82 Altered mental status, unspecified | CPT/HCPCS: 93010 ==

== ENCOUNTER 2024-11-24 17:50 | Outpatient (BNV) | payer MEDICARE, MEDICAID, SELFPAY | END 2024-11-25 10:06 | PROVIDERS: Admitting Provider Physician Assistant; Emergency Provider Emergency Medicine; PCP Hospitalist; Visit Provider Radiology Diagnostic Radiology | DX: Z46.59 Encounter for fitting and adjustment of other gastrointestinal appliance and device (principal) | CPT/HCPCS: 71045 ==

== ENCOUNTER → 2024-11-24 17:50 | Outpatient (BNV) | payer MEDICARE, MEDICAID, SELFPAY | PROVIDERS: Admitting Provider Physician Assistant; Emergency Provider Emergency Medicine; PCP Hospitalist; Visit Provider Physician Assistant | DX: K92.2 Gastrointestinal hemorrhage, unspecified (principal); J69.0 Pneumonitis due to inhalation of food and vomit | CPT/HCPCS: 99223; 99232; 99239 ==

== ENCOUNTER → 2024-11-24 17:50 | Outpatient (BNV) | payer MEDICARE, MEDICAID, SELFPAY | PROVIDERS: Admitting Provider Physician Assistant; Emergency Provider Emergency Medicine; PCP Hospitalist; Visit Provider Surgery | DX: K92.2 Gastrointestinal hemorrhage, unspecified (principal) | CPT/HCPCS: 99222 ==